=== PATIENT | female | born 1980 | race Caucasian/White ===

== ENCOUNTER → 2019-10-20 | Outpatient (CLI) | payer OTHER ==
[~2019-10-20] MED LIST: LEVA500T; TOLT2TA; VICO5TAB
--- NOTE | 2019-11-04 02:43 | ECWPNPC ---
PATIENT NAME: JIMENEZ MARIO : 1980 GENDER: FEMALE VISIT DATE: 10/20/2019 DISCHARGE DATE: 10/20/19 1440 VISIT LOCKED DATE TIME: PHYSICIAN: CAROLINE HICKMAN RESOURCE: CAROLINE HICKMAN REASON FOR APPOINTMENT 1. LOW BACK/HIP HISTORY OF PRESENT ILLNESS NEW PATIENT CONSULT: 39-YEAR-OLD REFERRED BY [facility] FOR PERSISTENT LOW BACK PAIN AND RIGHT LEG PAIN AND PARESTHESIAS. REPORTS LONG HISTORY OF CHRONIC LOW BACK PAIN. REPORTS FALLING WHILE DEPLOYED IN THE IN DEPLOYMENT. STATES SHE FELL ON ICE AFTER RETURNING HOME IN [employer] AND INJURED HER RIGHT HIP. HAD RIGHT HIP LABRAL TEAR REPAIR IN 2013. REPORTS THAT THIS MADE IT WORSE. RATING PAIN LEVEL 5/10 VAS. HAS TRIALED MULTIPLE DIFFERENT PAIN MEDICATIONS WITHOUT IMPROVEMENT IN HER PAIN. MOST RECENTLY USED HYDROCODONE 7.5/325 UP TO 3 TABLETS PER DAY. FINDS THAT THIS IS SUFFICIENT TO DULL PAIN AND TO HELP HER FUNCTION. FEELS PAIN HAS GOTTEN WORSE OVER THE PAST 2 YEARS. HAS TRIED INJECTION THERAPY IN HER LOWER BACK IN THE PAST THAT WAS SOMEWHAT HELPFUL. DENIES BOWEL OR BLADDER INCONTINENCE. DENIES RECENT FEVER, ILLNESS OR WEIGHT LOSS. WHEN DID YOUR PAIN FIRST START? . BRIEFLY DESCRIBE HOW YOUR PAIN STARTED? . HOW DOES YOUR PAIN CHANGE WITH TIME? . DOES YOUR PAIN AWAKEN YOU FROM SLEEP? . HOW MANY HOURS OF SLEEP DO YOU NORMALLY GET? . ANY DIAGNOSTIC TESTING? . FACILITY WHERE TESTS WERE DONE? ____. PAIN TREATMENT TREATMENT YES CANCER HAVE YOU EVER HAD ANY TYPE OF CANCER?NO NO. PAIN SCREENING: PATIENT HAS A COMPLAINT OF ACUTE OR CHRONIC PAIN :YES FALL RISK SCREENING: SCREENING : NO FALLS IN THE PAST YEAR. GARCIA INVENTORY: QUESTIONNAIRE ASSESSEDTBD SCORE VALUE CALCULATED TBD CURRENT MEDICATIONS TAKING ATORVASTATIN CALCIUM 80 MG TABLET 1 TABLET ORALLY ONCE A DAY TAKING SUMATRIPTAN SUCCINATE 100 MG TABLET 1 TABLET AT LEAST 2 HOURS BETWEEN DOSES NEEDED ORALLY ONE TABLET DIRECTED FOR MIGRAINES AND REPEAT IN 2 HOURS MDD 2 TAKING VITAMIN D3 25 MCG (1000 UT) CAPSULE 1 CAPSULE ORALLY 2000 UNITS BY MOUTH BEFORE BREAKFAST TAKING CLONAZEPAM 0.5 MG TABLET TAKE UP TO 3 TABS BEFORE BEDTIME ORALLY ONCE A DAY TAKING GEMFIBROZIL 600 MG TABLET 1 TABLET 30 MINUTES BEFORE MORNING AND EVENING MEALS ORALLY DAILY TAKING HYDROXYZINE HCL 10 MG TABLET DIRECTED ORALLY THREE TIMES DAILY NEEDED HOLD IF DROWSY TAKING OXCARBAZEPINE 600 MG TABLET 1 TABLET ORALLY TWICE A DAY TAKING HYDROCODONE-ACETAMINOPHEN 7.5-325 MG TABLET 1 TABLET NEEDED ORALLY BID AND AT HS NEEDED MDD3 TAKING ADDERALL XR 20 MG CAPSULE EXTENDED RELEASE 24 HOUR 1 CAPSULE IN THE MORNING ORALLY ONCE A DAY TAKING LURASIDONE HCL 120 MG TABLET 1/2 TABLET ORALLY ONCE A DAY MEDICATION LIST REVIEWED AND RECONCILED WITH THE PATIENT PAST MEDICAL HISTORY ADHD BIPOLAR PTSD SEVERE CHRONIC LOWER BACK PAIN 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 SEVERE ANXIETY MIGRAINES DYSLIPIDEMIA ALLERGIES NIACIN: SEVERE RASH AND DYSPNEA - ALLERGY SURGICAL HISTORY TUBAL LIGATION APPENDECTOMY RIGHT ANKLE SURGERY RIGHT HIP LABIAL TEAR REPAIR STENT FOR KIDNEY STONES FAMILY HISTORY FATHER: ALIVE, DIAGNOSED WITH DIABETES MOTHER: ALIVE 1 BROTHER(S) , 1 SISTER(S) - HEALTHY. 1 SON(S) , 2 DAUGHTER(S) - HEALTHY. FATHER- THYROID DISEASE, SEVERE ARTHRITISMOTHER CERVICAL CANCER SISTER- HAS PSYCH HISTORY. SOCIAL HISTORY GENERAL: TOBACCO USE ARE YOU A:CURRENT SMOKER ARE YOU INTERESTED IN QUITTING?NOT READY TO QUIT COUNSELED THE PATIENT ON SMOKING EFFECTS, EDUCATION [id number]/14/2020 HOW MANY CIGARETTES A DAY DO YOU SMOKE?6-10 HOW SOON AFTER YOU WAKE UP DO YOU SMOKE YOUR FIRST CIGARETTE?6-30 MIN HOW OFTEN DO YOU SMOKE CIGARETTES?EVERY DAY PATIENT COUNSELED ON THE DANGERS OF TOBACCO USE AND URGED TO QUIT:10/16/2019 VAPORNO E-CIGARETTENO OTHERS AT HOME: SPOUSE, CHILDREN. HOUSING: OWNS HOME. EDUCATION LEVEL OF EDUCATION:COLLEGE DIET: REGULAR. LANGUAGE LANGUAGES SPOKEN:SAO [place]OMEAN DOMESTIC VIOLENCE STATUS: RECREATIONAL DRUG USE DRUG USE?NO PATIENT DENIES ABUSE OR MISSUSED OF ANY MEDICATION DENIES PATIENT DENIES USE OF ANY ILLEGAL SUBSTANCE INCLUDING MARIJUANA OR COCAINE DENIES EXERCISE: NO REGULAR EXERCISE. 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 CLINIC PFS, CLERGY, PUBLIC HEALTH REFERRALS PFS REFERRAL NEEDED?NO CLERGY REFERRAL NEEDED?NO PUBLIC HEALTH REFERRAL NEEDED?NO WAS THE PROVIDER NOTIFIED OF ANY PERTINENT INFO?YES HAS THE PATIENT BEEN EDUCATED REGARDING HIS/HER PLAN OF CARE?YES HAS THE PATIENT BEEN EDUCATED REGARDING PAIN, THE RISK FOR PAIN, THE IMPORTANCE OF EFFECTIVE PAIN MANAGEMENT, AND THE PAIN ASSESSMENT PROCESS?YES PFS REFERRAL NEEDED?NO CLERGY REFERRAL NEEDED?NO PUBLIC HEALTH REFERRAL NEEDED?NO WAS THE PROVIDER NOTIFIED OF ANY PERTINENT INFO?NO LATEX QUESTIONNAIRE LATEX ALLERGY : HAVE YOU EVER DEVELOPED ANY TYPE OF REACTION AFTER HANDLING LATEX PRODUCTS SUCH RUBBER GLOVES, CONDOMS, DIAPHRAGMS, BALLOONS, SOCKS, OR UNDERWEAR?NO LATEX ALLERGY : HAVE YOU EVER DEVELOPED ANY TYPE OF REACTION DURING OR AFTER DENTAL APPOINTMENT, VAGINAL/RECTAL EXAMINATION, SURGICAL PROCEDURE, OR ANY OTHER EXPOSURE?NO LATEX RISK : HAVE YOU EVER HAD ANY DIFFICULTY BREATHING OR HIVES AFTER EATING OR HANDLING ANY FRUITS, OR VEGETABLES; SUCH KIWI, BANANAS, STONE FRUITS, OR CHESTNUTSNO LATEX RISK : DO YOU HAVE A PREVIOUS PERSONAL HISTORY OF MORE THAN NINE SURGERIES, SPINA BIFIDA, OR REPEATED CATHERIZATIONS? NO LATEX RISK : ARE YOU FREQUENTLY EXPOSED TO LATEX PRODUCTS IN YOUR OCCUPATION?NO DATE ASKED : 10/16/2019 CAFFEINE CAFFEINE USE?YES HOW OFTEN AND HOW MUCH? COFFEE, 4/DAY ADVANCE DIRECTIVE ADVANCE DIRECTIVE DISCUSSED WITH PATIENT:NO LUTHERAN LUTHERAN NO SHINTO BELIEFS THAT WOULD IMPACT HEALTH CARE. MARITAL STATUS: . 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 [facility] PRE VISIT PHONE CALL COMPLETED WITH PATIENT 10/16/2019 1430 NLJ. HOSPITALIZATION/MAJOR DIAGNOSTIC PROCEDURE KIDNEY STONES CHILDBIRTH AFTER CHILDBIRTH FROM [employer] REVIEW OF SYSTEMS REVIEWED BY: PROVIDER: CAROLINE GUADALUPE . CONSTITUTIONAL: ANY CHANGE IN YOUR MEDICAL CONDITION? NO . CHILLS NO . FEVER NO . INFECTION: DO YOU HAVE NEW INFECTIONS? SINUS INFECTION CURRENTLY ON AMOXICILLAN . DO YOU HAVE HISTORY OF MRSA? NO . MUSCULOSKELETAL: ANY NEW PATTERNS OF PAIN OR NUMBNESS? HAS HAD BACK PAIN SINCE 2013 . SYTEMIC LUPUS NO . GASTROENTEROLOGY: ANY NEW CHANGE IN BOWEL CONTROL? NO . BARRETTS ESOPHAGUS NO . CIRRHOSIS NO . HEPATITIS NO . LIVER FAILURE NO . ACID REFLUX NO . UNEXPLAINED WEIGHT LOSS NO . GENITOURINARY: ANY NEW CHANGE IN BLADDER CONTROL? NO . IS THERE A CHANCE YOU COULD BE ? NO . HEMATOLOGY/LYMPH: DO YOU TAKE ANY BLOOD THINNERS? (FOR EXAMPLE- COUMADIN, PLAVIX, AGGRENOX, PLATEL, PRADAXA, OR XARELTO) NO . WHEN WAS YOUR LAST DOSE? DATE: TIME: . LOW PLATELET COUNT NO . SICKLE CELL DISEASE NO . VON WILLIEBRANDS NO . FACTOR V LEIDEN NO . THALLASEMIA NO . ANEMIA NO . EASY BRUISING NO . NEUROLOGY: HAVE YOU FALLEN IN THE PAST 12 MONTHS? SLIPPED ON STAIRS IN THE LAST 6 ONTHS ON URGENT CARE . ANY NEW EXTREMITY NUMBNESS OR WEAKNESS? NO . HEAD INJURY NO . DEMENTIA NO . CEREBRAL PALSY NO . MULTIPLE SCLEROSIS NO . DIZZINESS NO . HEADACHE NO . STROKES NO . VERTIGO NO . CARDIOLOGY: DO YOU HAVE A PACEMAKER OR DEFIBRILLATOR? NO . ANGINA NO . HEART ATTACK NO . HEART SURGERY NO . CONGESTIVE HEART FAILURE/FLUID OVERLOAD NO . CHEST PAIN NO . HIGH BLOOD PRESSURE NO . IRREGULAR HEART BEAT NO . RESPIRATORY: HAVE YOU BEEN SICK IN THE PAST WEEK? NO . FEVER NO . FLU LIKE SYMPTOMS? NO . CPAP NO . BYPAP NO . ASTHMA NO . EMPHYSEMA NO . CHRONIC LUNG DISEASES NO . SHORTNESS OF BREATH ON EXERTION NO . DO YOU USE ANY TYPE OF TOBACCO (SMOKE, SMOKELESS, CHEW)? NO . COUGH NO . SNORING NO . INTEGUMENTARY: DO YOU HAVE ANY RASHES OR OPEN SORES? NO . ALLERGIC/IMMUNO: ARE YOU ALLERGIC TO IV DYE? NO . ANY NEW ALLERGIES? NO . PSYCHIATRIC: DO YOU HAVE THOUGHTS OF HURTING YOURSELF OR SOMEONE ELSE? NO . ARE YOU ABUSED, NEGLECTED, OR IN AN UNSAFE ENVIRONMENT? [facility] . ENDOCRINOLOGY: ARE YOU DIABETIC? NO . THYROID DISORDER NO . OTHER: DO YOU NEED ANY PRESCRIPTIONS? NO . IF YES, PLEASE LIST: ____ . ANY NEW PROBLEMS WITH YOUR MEDICATIONS? NO . WHEN DID YOU LAST EAT? ____ . WHEN DID YOU LAST DRINK? ____ . WHAT DID YOU LAST DRINK? ____ . NAME OF PERSON DRIVING YOU HOME? ____ . DO YOU HAVE ANY OTHER QUESTIONS OR CONCERNS NO . VITAL SIGNS WT 142.6 LBS, HT 62 IN, BMI 26.08 INDEX, BP 124/66 MM HG, HR 79 /MIN, RR 18 /MIN, TEMP 99.8 F, OXYGEN SAT % 95%, NA INITIALS MS 1333. EXAMINATION GENERAL EXAMINATION: GENERAL AWAKE,ALERT ,PLEASANT . PSYCH AFFECT NORMAL . NECK: TRACHEA MIDLINE. NO CERVICAL OR SUPRACLAVICULAR LYMPHADENOPATHY NOTED. LUNGS: LUNG GARCES ARE CLEAR TO AUSCULTATION BILATERALLY. GOOD MOVEMENT OF AIR . HEART: S1, S2 IN A REGULAR RATE AND RHYTHM. NO SIGNIFICANT MURMURS, RUBS OR GALLOPS NOTED . MUSCULOSKELETAL: MUSCLE STRENGTH TESTING WEAKNESS NOTED OVER RIGHT LEG .. LUMBAR: PALPATION: NEGATIVE FOR PAIN OVER L/S SPINE. NEGATIVE FOR PAIN OVER L/S PARASPINALS. , TRIGGER POINTS:. CERVICAL: NEGATIVE FOR PAIN WITH PALPATION OF CERVICAL SPINE. NEGATIVE FOR PAIN WITH PALPATION OF CERVICAL PARASPINALS. NEGATIVE FOR PAIN WITH PALPATION OF TRAPEZIUS BILAT. SKIN: NO RASH OR SKIN LESIONS. NEUROLOGIC EXAM:REPORTS DULLNESS TO LIGHT TOUCH, RIGHT THIGH, AND PARESTHESIA TO LIGHT TOUCH RIGHT LOWER EXTREMITY. ASSESSMENTS LOW BACK PAIN AT MULTIPLE SITES - M54.5 (PRIMARY) TREATMENT LOW BACK PAIN AT MULTIPLE SITES [facility] SPINE, L.S. WITHOUT [id number] NOTES: CONTINUE MEDICATION MANAGEMENT WITH [facility]. PROCEDURE CODES FA211 ESTABILISHED PATIENT [facility] FACILITY CHARGE DISPOSITION & COMMUNICATION FOLLOW UP 6 WEEKS (REASON: REVIEW MRI LS-SPINE) ELECTRONICALLY SIGNED BY ANAYELI MORAN ON 11/03/2019 AT 10:31 AM EST DISCLAIMER : THIS IS A VISIT SUMMARY EXTRACTED FROM THE [employer] CHART. IT IS NOT A COPY OF THE [employer] PROGRESS NOTE. CARL
== END ==
LOC: M PAIN 13:30
PROVIDERS: ATTEND Nurse Practitioner Family
DX: M54.5 Low back pain (principal); Z86.59 Personal history of other mental and behavioral disorders; G43.909 Migraine, unspecified, not intractable, without status migrainosus; F17.210 Nicotine dependence, cigarettes, uncomplicated; Z91.09 Other allergy status, other than to drugs and biological substances; Z79.899 Other long term (current) drug therapy

== ENCOUNTER → 2019-12-03 | Outpatient (CLI) | payer OTHER ==
--- NOTE | 2019-12-04 03:04 | ECWPNPC ---
PATIENT NAME: JIMENEZ MARIO : 1980 GENDER: FEMALE VISIT DATE: 12/03/2019 DISCHARGE DATE: 12/03/19 1122 VISIT LOCKED DATE TIME: PHYSICIAN: CAROLINE HICKMAN RESOURCE: CAROLINE HICKMAN REASON FOR APPOINTMENT 1. 6 WEEK FOLLOW UP MRI REVIEW HISTORY OF PRESENT ILLNESS HISTORY OF PRESENT ILLNESS: PHONE CALL TO PATIENT AND SHE IS AGREEABLE TO TELEPHONE VISIT TODAY. CONTINUES TO COMPLAIN OF LOW BACK PAIN AND RIGHT HIP AND LEG PAIN. THIS BEGAN SEVERAL YEARS AGO AFTER A FALL INJURY. REVIEWED MRI OF THE LS-SPINE I HAD ORDERED AT HER INITIAL CONSULT A FEW MONTHS AGO. THIS IS SHOWING FACET ARTHROPATHY. RATING PAIN LEVEL A 6/10 VAS. BRIEFLY DISCUSSED POTENTIAL TREATMENT PLAN, I.E. FACET BLOCK VERSUS RIGHT SIJ. WE WILL BRING HER BACK INTO THE OFFICE IN 4-6 WEEKS FOR PHYSICAL EXAM AND DISCUSSED TREATMENT OPTIONS. PAIN THE PATIENT DESCRIBES THE PAIN... FALL RISK SCREENING: SCREENING :NO FALLS REPORTED IN THE LAST YEAR CURRENT MEDICATIONS TAKING ATORVASTATIN CALCIUM 80 MG TABLET 1 TABLET ORALLY ONCE A DAY TAKING SUMATRIPTAN SUCCINATE 100 MG TABLET 1 TABLET AT LEAST 2 HOURS BETWEEN DOSES NEEDED ORALLY ONE TABLET DIRECTED FOR MIGRAINES AND REPEAT IN 2 HOURS MDD 2 TAKING VITAMIN D3 25 MCG (1000 UT) CAPSULE 1 CAPSULE ORALLY 2000 UNITS BY MOUTH BEFORE BREAKFAST TAKING CLONAZEPAM 0.5 MG TABLET TAKE UP TO 3 TABS BEFORE BEDTIME ORALLY ONCE A DAY TAKING GEMFIBROZIL 600 MG TABLET 1 TABLET 30 MINUTES BEFORE MORNING AND EVENING MEALS ORALLY DAILY TAKING HYDROXYZINE HCL 10 MG TABLET DIRECTED ORALLY THREE TIMES DAILY NEEDED HOLD IF DROWSY TAKING OXCARBAZEPINE 600 MG TABLET 1 TABLET ORALLY TWICE A DAY TAKING HYDROCODONE-ACETAMINOPHEN 7.5-325 MG TABLET 1 TABLET NEEDED ORALLY BID AND AT HS NEEDED MDD3 TAKING ADDERALL XR 20 MG CAPSULE EXTENDED RELEASE 24 HOUR 1 CAPSULE IN THE MORNING ORALLY ONCE A DAY TAKING LURASIDONE HCL 120 MG TABLET 1/2 TABLET ORALLY ONCE A DAY TAKING WELLBUTRIN XL 150 MG TABLET EXTENDED RELEASE 24 HOUR 1 TABLET ORALLY BID TAKING NICOTINE STEP 1 21 MG/24HR PATCH 24 HOUR 1 PATCH TO SKIN TRANSDERMAL ONCE A DAY MEDICATION LIST REVIEWED AND RECONCILED WITH THE PATIENT PAST MEDICAL HISTORY ADHD BIPOLAR PTSD SEVERE CHRONIC LOWER BACK PAIN 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 SEVERE ANXIETY MIGRAINES DYSLIPIDEMIA ALLERGIES NIACIN: SEVERE RASH AND DYSPNEA - ALLERGY SURGICAL HISTORY TUBAL LIGATION APPENDECTOMY RIGHT ANKLE SURGERY RIGHT HIP LABIAL TEAR REPAIR STENT FOR KIDNEY STONES FAMILY HISTORY FATHER: ALIVE, DIAGNOSED WITH DIABETES MOTHER: ALIVE 1 BROTHER(S) , 1 SISTER(S) - HEALTHY. 1 SON(S) , 2 DAUGHTER(S) - HEALTHY. FATHER- THYROID DISEASE, SEVERE ARTHRITISMOTHER CERVICAL CANCER SISTER- HAS PSYCH HISTORY. SOCIAL HISTORY GENERAL: TOBACCO USE ARE YOU A:CURRENT SMOKER ARE YOU INTERESTED IN QUITTING?READY TO QUIT PATIENT TAKING WELLBUTRIN AND USING NICOTINE PATCHES CURRENTLY. COUNSELED THE PATIENT ON TOBACCO USE, CESSATION [id number]/02/2020 HOW MANY CIGARETTES A DAY DO YOU SMOKE?6-10 HOW SOON AFTER YOU WAKE UP DO YOU SMOKE YOUR FIRST CIGARETTE?6-30 MIN HOW OFTEN DO YOU SMOKE CIGARETTES?EVERY DAY PATIENT COUNSELED ON THE DANGERS OF TOBACCO USE AND URGED TO QUIT:12/03/2019 VAPORNO E-CIGARETTENO OTHERS AT HOME: SPOUSE, CHILDREN. HOUSING: OWNS HOME. EDUCATION LEVEL OF EDUCATION:COLLEGE DIET: REGULAR. LANGUAGE LANGUAGES SPOKEN:BURMESE DOMESTIC VIOLENCE STATUS: NEW PATIENT PAIN DIARY TODAY'S VISITNOTES 12/03/2019 PATIENT DESCRIBES PAIN :ACHING, BURNING, HAVE IT ALL THE TIME, STABBING, SHOOTING FROM 0-10, WHAT LEVEL IS YOUR PAIN TODAY?6 RECREATIONAL DRUG USE DRUG USE?NO PATIENT DENIES ABUSE OR MISSUSED OF ANY MEDICATION DENIES PATIENT DENIES USE OF ANY ILLEGAL SUBSTANCE INCLUDING MARIJUANA OR COCAINE DENIES EXERCISE: NO REGULAR EXERCISE. 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 CLINIC PFS, CLERGY, PUBLIC HEALTH REFERRALS PFS REFERRAL NEEDED?NO CLERGY REFERRAL NEEDED?NO PUBLIC HEALTH REFERRAL NEEDED?NO WAS THE PROVIDER NOTIFIED OF ANY PERTINENT INFO?YES HAS THE PATIENT BEEN EDUCATED REGARDING HIS/HER PLAN OF CARE?YES HAS THE PATIENT BEEN EDUCATED REGARDING PAIN, THE RISK FOR PAIN, THE IMPORTANCE OF EFFECTIVE PAIN MANAGEMENT, AND THE PAIN ASSESSMENT PROCESS?YES LATEX QUESTIONNAIRE LATEX ALLERGY : HAVE YOU EVER DEVELOPED ANY TYPE OF REACTION AFTER HANDLING LATEX PRODUCTS SUCH RUBBER GLOVES, CONDOMS, DIAPHRAGMS, BALLOONS, SOCKS, OR UNDERWEAR?NO LATEX ALLERGY : HAVE YOU EVER DEVELOPED ANY TYPE OF REACTION DURING OR AFTER DENTAL APPOINTMENT, VAGINAL/RECTAL EXAMINATION, SURGICAL PROCEDURE, OR ANY OTHER EXPOSURE?NO LATEX RISK : HAVE YOU EVER HAD ANY DIFFICULTY BREATHING OR HIVES AFTER EATING OR HANDLING ANY FRUITS, OR VEGETABLES; SUCH KIWI, BANANAS, STONE FRUITS, OR CHESTNUTSNO LATEX RISK : DO YOU HAVE A PREVIOUS PERSONAL HISTORY OF MORE THAN NINE SURGERIES, SPINA BIFIDA, OR REPEATED CATHERIZATIONS? NO LATEX RISK : ARE YOU FREQUENTLY EXPOSED TO LATEX PRODUCTS IN YOUR OCCUPATION?NO DATE ASKED : 10/16/2019 CAFFEINE CAFFEINE USE?YES HOW OFTEN AND HOW MUCH? COFFEE, 4/DAY ADVANCE DIRECTIVE ADVANCE DIRECTIVE DISCUSSED WITH PATIENT:YES PATIENT HAS NO ADVANCED DIRECTIVES AND DECLINES INFORMATION ON HCP AT THIS TIME. MORAVIAN MORAVIAN NO SABIANISM BELIEFS THAT WOULD IMPACT HEALTH CARE. MARITAL STATUS: . 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 HOSPITALIZATION/MAJOR DIAGNOSTIC PROCEDURE KIDNEY STONES CHILDBIRTH AFTER [place]ILDBIRTH FROM [place] REVIEW OF SYSTEMS REVIEWED BY: PROVIDER: CAROLINE GUADALUPE . CONSTITUTIONAL: ANY CHANGE IN YOUR MEDICAL CONDITION? NO . CHILLS NO . FEVER NO . INFECTION: DO YOU HAVE NEW INFECTIONS? NO . DO YOU HAVE HISTORY OF MRSA? NO . MUSCULOSKELETAL: ANY NEW PATTERNS OF PAIN OR NUMBNESS? NO . GASTROENTEROLOGY: ANY NEW CHANGE IN BOWEL CONTROL? NO . GENITOURINARY: ANY NEW CHANGE IN BLADDER CONTROL? NO . IS THERE A CHANCE YOU COULD BE ? NO . HEMATOLOGY/LYMPH: DO YOU TAKE ANY BLOOD THINNERS? (FOR EXAMPLE- COUMADIN, PLAVIX, AGGRENOX, PLATEL, PRADAXA, OR XARELTO) NO . WHEN WAS YOUR LAST DOSE? DATE: TIME: . NEUROLOGY: HAVE YOU FALLEN IN THE PAST 12 MONTHS? YES, STATES PRIOR TO LAST VISIT, DISCUSSED PREVIOUSLY . ANY NEW EXTREMITY NUMBNESS OR WEAKNESS? NO . CARDIOLOGY: DO YOU HAVE A PACEMAKER OR DEFIBRILLATOR? NO . RESPIRATORY: HAVE YOU BEEN SICK IN THE PAST WEEK? NO . FEVER NO . FLU LIKE SYMPTOMS? NO . COUGH NO . INTEGUMENTARY: DO YOU HAVE ANY RASHES OR OPEN SORES? NO . ALLERGIC/IMMUNO: ARE YOU ALLERGIC TO IV DYE? NO . ANY NEW ALLERGIES? NO . PSYCHIATRIC: DO YOU HAVE THOUGHTS OF HURTING YOURSELF OR SOMEONE ELSE? NO . ARE YOU ABUSED, NEGLECTED, OR IN AN UNSAFE ENVIRONMENT? NO . ENDOCRINOLOGY: ARE YOU DIABETIC? NO . OTHER: DO YOU NEED ANY PRESCRIPTIONS? NO . IF YES, PLEASE LIST: ____ . ANY NEW PROBLEMS WITH YOUR MEDICATIONS? NO . WHEN DID YOU LAST EAT? ____ . WHEN DID YOU LAST DRINK? ____ . WHAT DID YOU LAST DRINK? ____ . NAME OF PERSON DRIVING YOU HOME? ____ . DO YOU HAVE ANY OTHER QUESTIONS OR CONCERNS YES, WOULD LIKE TO DISCUSS RIGHT HIP - [facility] . ASSESSMENTS LOW BACK PAIN AT MULTIPLE SITES - M54.5 (PRIMARY) TREATMENT LOW BACK PAIN AT MULTIPLE SITES NOTES: REVIEWED MRI OF THE LS SPINE AND DISCUSSED TREATMENT OPTIONS. OVERALL TIME FOR VISIT VIA PHONE CALL WAS APPROXIMATELY 11 MINUTES. DISPOSITION & COMMUNICATION FOLLOW UP 4-6 WEEKS. PREPROCEDURE (REASON: LBP/RIGHT LEG PAIN/RIGHT HIP) ELECTRONICALLY SIGNED BY ANAYELI MORAN ON 12/03/2019 AT 11:30 AM EDT DISCLAIMER : THIS IS A VISIT SUMMARY EXTRACTED FROM THE [employer] CHART. IT IS NOT A COPY OF THE [employer] PROGRESS NOTE. CARL
== END ==
LOC: M PAIN 09:15
PROVIDERS: ATTEND Nurse Practitioner Family
DX: M54.5 Low back pain (principal); F17.210 Nicotine dependence, cigarettes, uncomplicated; Z79.891 Long term (current) use of opiate analgesic; Z79.899 Other long term (current) drug therapy; Z88.8 Allergy status to other drugs, medicaments and biological substances

== ENCOUNTER → 2020-01-05 | Outpatient (CLI) | payer OTHER ==
--- NOTE | 2020-01-07 01:44 | ECWPNPC ---
PATIENT NAME: JIMENEZ MARIO : 1980 GENDER: FEMALE VISIT DATE: 01/05/2020 DISCHARGE DATE: 01/05/20901 VISIT LOCKED DATE TIME: PHYSICIAN: CAROLINE HICKMAN RESOURCE: CAROLINE HICKMAN REASON FOR APPOINTMENT 1. LBP/RIGHT LEG PAIN/RIGHT HIP - PAT COMPLETED HISTORY OF PRESENT ILLNESS HISTORY OF PRESENT ILLNESS: PATIENT IS AGREEABLE TO TELEMED VISIT VIA ZOOM DUE TO COVID 19 PRECAUTIONS. CONTINUES WITH SIGNIFICANT LOW BACK PAIN THAT RADIATES UP TO LOWER THORACIC AREA. PAIN IS AGGRAVATED BY RANGE OF JOINT MOTION OF THE SPINE. STATES RIGHT HIP HAS BEEN VERY PAINFUL OVER THE PAST 2 WEEKS, ESPECIALLY WHEN STEPPING ON HER RIGHT LEG. REVIEWED MRI. DISCUSSED TREATMENT OPTIONS. RATING PAIN LEVEL IN HER LOWER BACK 6/10 VAS, RIGHT GREATER THAN LEFT. DISCUSSED TREATMENT OPTIONS.REPORTS RIGHT HIP PAIN 10/10VAS. PAIN THE PATIENT DESCRIBES THE PAIN... FALL RISK SCREENING: SCREENING :NO FALLS REPORTED IN THE LAST YEAR CURRENT MEDICATIONS TAKING ATORVASTATIN CALCIUM 80 MG TABLET 1 TABLET ORALLY ONCE A DAY TAKING SUMATRIPTAN SUCCINATE 100 MG TABLET 1 TABLET AT LEAST 2 HOURS BETWEEN DOSES NEEDED ORALLY ONE TABLET DIRECTED FOR MIGRAINES AND REPEAT IN 2 HOURS MDD 2 TAKING VITAMIN D3 25 MCG (1000 UT) CAPSULE 1 CAPSULE ORALLY 2000 UNITS BY MOUTH BEFORE BREAKFAST TAKING CLONAZEPAM 0.5 MG TABLET TAKE UP TO 3 TABS BEFORE BEDTIME ORALLY ONCE A DAY TAKING GEMFIBROZIL 600 MG TABLET 1 TABLET 30 MINUTES BEFORE MORNING AND EVENING MEALS ORALLY DAILY TAKING HYDROXYZINE HCL 10 MG TABLET DIRECTED ORALLY THREE TIMES DAILY NEEDED HOLD IF DROWSY TAKING OXCARBAZEPINE 600 MG TABLET 1 TABLET ORALLY TWICE A DAY TAKING HYDROCODONE-ACETAMINOPHEN 7.5-325 MG TABLET 1 TABLET NEEDED ORALLY BID AND AT HS NEEDED MDD3 TAKING ADDERALL XR 20 MG CAPSULE EXTENDED RELEASE 24 HOUR 1 CAPSULE IN THE MORNING ORALLY ONCE A DAY TAKING LURASIDONE HCL 120 MG TABLET 1/2 TABLET ORALLY ONCE A DAY TAKING WELLBUTRIN XL 150 MG TABLET EXTENDED RELEASE 24 HOUR 1 TABLET ORALLY BID TAKING NICOTINE STEP 1 21 MG/24HR PATCH 24 HOUR 1 PATCH TO SKIN TRANSDERMAL ONCE A DAY MEDICATION LIST REVIEWED AND RECONCILED WITH THE PATIENT PAST MEDICAL HISTORY ADHD BIPOLAR PTSD SEVERE CHRONIC LOWER BACK PAIN 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 SEVERE ANXIETY MIGRAINES DYSLIPIDEMIA ARTHRITIS ALLERGIES NIACIN: SEVERE RASH AND DYSPNEA - ALLERGY SURGICAL HISTORY TUBAL LIGATION APPENDECTOMY RIGHT ANKLE SURGERY RIGHT HIP LABIAL TEAR REPAIR STENT FOR KIDNEY STONES FAMILY HISTORY FATHER: ALIVE, DIAGNOSED WITH DIABETES MOTHER: ALIVE 1 BROTHER(S) , 1 SISTER(S) - HEALTHY. 1 SON(S) , 2 DAUGHTER(S) - HEALTHY. FATHER- THYROID DISEASE, SEVERE ARTHRITISMOTHER CERVICAL CANCER SISTER- HAS PSYCH HISTORY. SOCIAL HISTORY GENERAL: TOBACCO USE ARE YOU A:CURRENT SMOKER ARE YOU INTERESTED IN QUITTING?READY TO QUIT PATIENT TAKING WELLBUTRIN AND USING NICOTINE PATCHES CURRENTLY. COUNSELED THE PATIENT ON TOBACCO USE, CESSATION [id number]/04/2020 HOW MANY CIGARETTES A DAY DO YOU SMOKE?5 OR LESS HOW SOON AFTER YOU WAKE UP DO YOU SMOKE YOUR FIRST CIGARETTE?6-30 MIN HOW OFTEN DO YOU SMOKE CIGARETTES?EVERY DAY PATIENT COUNSELED ON THE DANGERS OF TOBACCO USE AND URGED TO QUIT:01/04/2020 VAPORNO E-CIGARETTENO LATEX QUESTIONNAIRE LATEX ALLERGY : HAVE YOU EVER DEVELOPED ANY TYPE OF REACTION AFTER HANDLING LATEX PRODUCTS SUCH RUBBER GLOVES, CONDOMS, DIAPHRAGMS, BALLOONS, SOCKS, OR UNDERWEAR?NO LATEX ALLERGY : HAVE YOU EVER DEVELOPED ANY TYPE OF REACTION DURING OR AFTER DENTAL APPOINTMENT, VAGINAL/RECTAL EXAMINATION, SURGICAL PROCEDURE, OR ANY OTHER EXPOSURE?NO LATEX RISK : HAVE YOU EVER HAD ANY DIFFICULTY BREATHING OR HIVES AFTER EATING OR HANDLING ANY FRUITS, OR VEGETABLES; SUCH KIWI, BANANAS, STONE FRUITS, OR CHESTNUTSNO LATEX RISK : DO YOU HAVE A PREVIOUS PERSONAL HISTORY OF MORE THAN NINE SURGERIES, SPINA BIFIDA, OR REPEATED CATHERIZATIONS? NO LATEX RISK : ARE YOU FREQUENTLY EXPOSED TO LATEX PRODUCTS IN YOUR OCCUPATION?NO DATE ASKED : 01/04/2020 ALCOHOL SCREENING DID YOU HAVE A DRINK CONTAINING ALCOHOL IN THE PAST YEAR?YES HOW OFTEN DID YOU HAVE SIX OR MORE DRINKS ON ONE OCCASION IN THE PAST YEAR?NEVER (0 POINTS) HOW MANY DRINKS DID YOU HAVE ON A TYPICAL DAY WHEN YOU WERE DRINKING IN THE PAST YEAR?1 OR 2 (0 POINTS) HOW OFTEN DID YOU HAVE A DRINK CONTAINING ALCOHOL IN THE PAST YEAR?MONTHLY OR LESS (1 POINT) POINTS1 INTERPRETATIONNEGATIVE RECREATIONAL DRUG USE DRUG USE?NO PATIENT DENIES ABUSE OR MISSUSED OF ANY MEDICATION DENIES PATIENT DENIES USE OF ANY ILLEGAL SUBSTANCE INCLUDING MARIJUANA OR COCAINE DENIES CAFFEINE CAFFEINE USE?YES HOW OFTEN AND HOW MUCH? COFFEE, 4/DAY ZOROASTRIANISM ZOROASTRIANISM NO CONGREGATIONAL BELIEFS THAT WOULD IMPACT HEALTH CARE. 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 EXERCISE: NO REGULAR EXERCISE. MARITAL STATUS: . OTHERS AT HOME: SPOUSE, CHILDREN. NEW PATIENT PAIN DIARY TODAY'S VISITNOTES 01/04/2020 PATIENT DESCRIBES PAIN :ACHING, BURNING, HAVE IT ALL THE TIME, STABBING, SHOOTING HIP - STABBING, EXPLOSION PAIN FROM 0-10, WHAT LEVEL IS YOUR PAIN TODAY?6 BACK - 6, RIGHT HIP - 10, RIGHT LEG - 4 PRECIPITATING FACTORS WALKING (RIGHT LEG) ALLEVIATING FACTORS REST, MEDICATION HELPS SOME IMPACT ON FUNCTION YES PAIN CLINIC PFS, CLERGY, PUBLIC HEALTH REFERRALS PFS REFERRAL NEEDED?NO CLERGY REFERRAL NEEDED?NO PUBLIC HEALTH REFERRAL NEEDED?NO WAS THE PROVIDER NOTIFIED OF ANY PERTINENT INFO?YES HAS THE PATIENT BEEN EDUCATED REGARDING HIS/HER PLAN OF CARE?YES HAS THE PATIENT BEEN EDUCATED REGARDING PAIN, THE RISK FOR PAIN, THE IMPORTANCE OF EFFECTIVE PAIN MANAGEMENT, AND THE PAIN ASSESSMENT PROCESS?YES HOUSING: OWNS HOME. ADVANCE DIRECTIVE ADVANCE DIRECTIVE DISCUSSED WITH PATIENT:YES PATIENT HAS NO ADVANCED DIRECTIVES AND DECLINES INFORMATION ON HCP AT THIS TIME. HOSPITALIZATION/MAJOR DIAGNOSTIC PROCEDURE KIDNEY STONES CHILDBIRTH AFTER CHILDBIRTH FROM [place] REVIEW OF SYSTEMS REVIEWED BY: PROVIDER: CAROLINE GUADALUPE . CONSTITUTIONAL: ANY CHANGE IN YOUR MEDICAL CONDITION? NO . CHILLS NO . FEVER NO . INFECTION: DO YOU HAVE NEW INFECTIONS? NO . DO YOU HAVE HISTORY OF MRSA? NO . MUSCULOSKELETAL: ANY NEW PATTERNS OF PAIN OR NUMBNESS? YES, SOME PAIN RADIATING UP SPINE THAT SHE IS NOW NOTICING; STATES INCREASED PAIN TO RIGHT HIP WITH EVERY STEP - STARTED THIS PAST WEEK . GASTROENTEROLOGY: ANY NEW CHANGE IN BOWEL CONTROL? NO . GENITOURINARY: ANY NEW CHANGE IN BLADDER CONTROL? NO . IS THERE A CHANCE YOU COULD BE ? NO . HEMATOLOGY/LYMPH: DO YOU TAKE ANY BLOOD THINNERS? (FOR EXAMPLE- COUMADIN, PLAVIX, AGGRENOX, PLATEL, PRADAXA, OR XARELTO) NO . WHEN WAS YOUR LAST DOSE? DATE: TIME: . NEUROLOGY: HAVE YOU FALLEN IN THE PAST 12 MONTHS? YES, STATES FALL APPROXIMATELY 6 MONTHS AGO, DISCUSSED AT PREVIOUS VISIT . ANY NEW EXTREMITY NUMBNESS OR WEAKNESS? NO . CARDIOLOGY: DO YOU HAVE A PACEMAKER OR DEFIBRILLATOR? NO . RESPIRATORY: HAVE YOU BEEN SICK IN THE PAST WEEK? NO . FEVER NO . FLU LIKE SYMPTOMS? NO . COUGH NO . INTEGUMENTARY: DO YOU HAVE ANY RASHES OR OPEN SORES? NO . ALLERGIC/IMMUNO: ARE YOU ALLERGIC TO IV DYE? NO . ANY NEW ALLERGIES? NO . PSYCHIATRIC: DO YOU HAVE THOUGHTS OF HURTING YOURSELF OR SOMEONE ELSE? NO . ARE YOU ABUSED, NEGLECTED, OR IN AN UNSAFE ENVIRONMENT? NO . ENDOCRINOLOGY: ARE YOU DIABETIC? NO . OTHER: DO YOU NEED ANY PRESCRIPTIONS? NO . IF YES, PLEASE LIST: ____ . ANY NEW PROBLEMS WITH YOUR MEDICATIONS? NO . WHEN DID YOU LAST EAT? ____ . WHEN DID YOU LAST DRINK? ____ . WHAT DID YOU LAST DRINK? ____ . NAME OF PERSON DRIVING YOU HOME? ____ . DO YOU HAVE ANY OTHER QUESTIONS OR CONCERNS YES, WOULD LIKE TO DISCUSS GETTING A PROCEDURE AND WOULD LIKE TO DISCUSS INCREASED PAIN TO RIGHT HIP - STATES INCREASED PAIN WITH EACH STEP SHE TAKES WITH HER RIGHT LEG . EXAMINATION GENERAL EXAMINATION: GENERALNO ACUTE DISTRESS, APPEARS UNCOMFORTABLE. PSYCHAPPROPRIATE MOOD AND AFFECT . FACE:UNREMARKABLE. DIAGNOSTIC TESTS REVIEWEDMRI L/S SPINE 10/30/2019 . PATIENT DEMONSTRATES INCREASED PAIN WITH EXTENSION OF SPINE/FACET LOADING OVER LOWER LUMBAR FACETS. PAIN IN THIS REGION IS RELIEVED SOMEWHAT WITH FLEXION OF SPINE. PATIENT DEMONSTRATES TENDERNESS WITH PALPATION OVER THE LS AXIS AND LUMBAR FACETS. ASSESSMENTS SPINAL STENOSIS, LUMBAR REGION, WITHOUT NEUROGENIC CLAUDICATION - M48.061 (PRIMARY) TREATMENT SPINAL STENOSIS, LUMBAR REGION, WITHOUT NEUROGENIC CLAUDICATION NOTES: BILATERAL L4-5, L5-S1 LUMBAR THERAPEUTIC FACET BLOCK TOTAL TIME SPENT DURING TELEMED VISIT WAS APPROXIMATELY 12 MINUTES. OTHERS NOTES: NO VITALS OBTAINED DUE TO VIRTUAL VISIT. PRE-SCREENING COMPLETED 01/04/2020 1445 JS.,FACET JOINT INJECTION MATERIAL WAS PRINTED. PREVENTIVE MEDICINE PAIN CLINIC TEACHING: PROCEDURE TEACHING PRE-PROCEDURE INSTRUCTIONS REVIEWED WITH PT OVER PHONE. INSTRUCTIONS ALSO MAILED.. DISPOSITION & COMMUNICATION FOLLOW UP POST (REASON: BILATERAL L4-5, L5-S1 LUMBAR THERAPEUTIC FACET BLOCK) ELECTRONICALLY SIGNED BY ANAYELI MORAN ON 01/06/2020 AT 01:46 PM EDT DISCLAIMER : THIS IS A VISIT SUMMARY EXTRACTED FROM THE [employer] CHART. IT IS NOT A COPY OF THE [employer] PROGRESS NOTE. CARL
== END ==
LOC: M PAIN 09:30 → M TMPAIN 09:30
PROVIDERS: ATTEND Nurse Practitioner Family
DX: M48.061 Spinal stenosis, lumbar region without neurogenic claudication (principal); F17.210 Nicotine dependence, cigarettes, uncomplicated; Z79.891 Long term (current) use of opiate analgesic; Z79.899 Other long term (current) drug therapy; Z88.8 Allergy status to other drugs, medicaments and biological substances

== ENCOUNTER → 2020-01-15 | Outpatient (CLI) | payer OTHER | LOC: M LABSMTC 09:25 | PROVIDERS: ATTEND Anesthesiology | DX: Z11.59 Encounter for screening for other viral diseases (principal) | CPT/HCPCS: C9803; U0003 ==

== ENCOUNTER → 2020-02-08 | Outpatient (CLI) | payer OTHER ==
--- NOTE | 2020-02-12 13:16 | ECWPNPC ---
PATIENT NAME: JIMENEZ MARIO : 1980 GENDER: FEMALE VISIT DATE: 02/08/2020 DISCHARGE DATE: 02/08/20 1024 VISIT LOCKED DATE TIME: PHYSICIAN: CAROLINE HICKMAN RESOURCE: CAROLINE HICKMAN REASON FOR APPOINTMENT 1. POST LFBT-JENNA L4-L5, L5-S1 HISTORY OF PRESENT ILLNESS GENERAL: PATIENT IS AGREEABLE TO TELEMED VISIT VIA ZOOM. THIS IS A POST PROCEDURE FOLLOW-UP. HAD BILATERAL L4-5, L5-S1 LUMBAR FACET BLOCK, THERAPEUTIC ON 01/18/2020. REPORTS INITIAL AGGRAVATION IN PAIN AND THEN POSSIBLY A SMALL AMOUNT OF IMPROVEMENT THAT CONTINUES TODAY. STILL HAS BEEN BOTHERED BY CONSISTENT LOW BACK PAIN, RIGHT GREATER THAN LEFT. PAIN TRAVELS INTO THE RIGHT BUTTOCK AREA. DISCUSSED MEDICATION AND TREATMENT PLAN. -. FALL RISK SCREENING: SCREENING :ONE FALL WITHOUT INJURY IN THE PAST YEAR PAIN SCREENING: PATIENT HAS A COMPLAINT OF ACUTE OR CHRONIC PAIN :YES 02/08/20 INTENSITY OF PAIN (SCALE OF 1 TO 10):8 WHAT DOES YOUR PAIN FEEL LIKE:ACHING, CONTINOUS, STABBING, THROBBING, SHOOTING PAIN IS INCREASED BY: LIFTING THINGS TURNING, STANDING ON ONE FOOT PAIN IS DECREASED BY: REST NURSING NOTE: -. PAIN CENTER INTAKE QUESTIONS: DO YOU HAVE A HISTORY OF MRSA? :NO DO YOU TAKE A BLOOD THINNERS? :NO DO YOU HAVE ANY BLEEDING DISORDERS? :NO ANY NEW NUMBNESS OR WEAKNESS IN YOUR LEGS OR ARMS? :YES S/P NUMBNESS IN FEET ANY PACEMAKER,DEFIBRILLATOR, OR DORSAL COLUMN STIMULATOR? :NO DO YOU HAVE ANY RASHES OR OPEN SORES? :NO ARE YOU ALLERGIC TO IV DYE? :NO ARE YOU DIABETIC? :NO ANY NEW PROBLEMS WITH YOUR MEDICATIONS? :NO HAVE YOU RECEIVED A VACCINE IN THE PAST 30 DAYS? :NO DO YOU PLAN TO RECEIVE A VACCINE IN THE NEXT 21 DAYS? :NO DO YOU NEED ANY PRESCRIPTION? :NO DO YOU TAKE ANY IMMUNOSUPPRESSIVE MEDICATIONS? :NO CURRENT MEDICATIONS TAKING ATORVASTATIN CALCIUM 80 MG TABLET 1 TABLET ORALLY ONCE A DAY TAKING SUMATRIPTAN SUCCINATE 100 MG TABLET 1 TABLET AT LEAST 2 HOURS BETWEEN DOSES NEEDED ORALLY ONE TABLET DIRECTED FOR MIGRAINES AND REPEAT IN 2 HOURS MDD 2 TAKING VITAMIN D3 25 MCG (1000 UT) CAPSULE 1 CAPSULE ORALLY 2000 UNITS BY MOUTH DAILY TAKING CLONAZEPAM 0.5 MG TABLET TAKE UP TO 3 TABS BEFORE BEDTIME ORALLY ONCE A DAY TAKING GEMFIBROZIL 600 MG TABLET 1 TABLET 30 MINUTES BEFORE MORNING AND EVENING MEALS ORALLY DAILY TAKING HYDROXYZINE HCL 10 MG TABLET DIRECTED ORALLY THREE TIMES DAILY NEEDED HOLD IF DROWSY TAKING OXCARBAZEPINE 600 MG TABLET 1 TABLET ORALLY TWICE A DAY TAKING HYDROCODONE-ACETAMINOPHEN 7.5-325 MG TABLET 1 TABLET NEEDED ORALLY BID AND AT HS NEEDED MDD3 TAKING ADDERALL XR 20 MG CAPSULE EXTENDED RELEASE 24 HOUR 1 CAPSULE IN THE MORNING ORALLY ONCE A DAY TAKING LURASIDONE HCL 120 MG TABLET 1/2 TABLET ORALLY ONCE A DAY NOT-TAKING WELLBUTRIN XL 150 MG TABLET EXTENDED RELEASE 24 HOUR 1 TABLET ORALLY BID NOT-TAKING CARISOPRODOL 350 MG TABLET 1 TABLET NEEDED ORALLY FOR SPASMS AND PAIN EVERY 12 HOURS NEEDED MDD2 NOT-TAKING NICOTINE STEP 1 21 MG/24HR PATCH 24 HOUR 1 PATCH TO SKIN TRANSDERMAL ONCE A DAY MEDICATION LIST REVIEWED AND RECONCILED WITH THE PATIENT PAST MEDICAL HISTORY ADHD BIPOLAR PTSD SEVERE CHRONIC LOWER BACK PAIN 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 SEVERE ANXIETY MIGRAINES DYSLIPIDEMIA ARTHRITIS 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 ALLERGIES NIACIN: SEVERE RASH AND DYSPNEA - ALLERGY SURGICAL HISTORY TUBAL LIGATION APPENDECTOMY RIGHT ANKLE SURGERY RIGHT HIP LABIAL TEAR REPAIR STENT FOR KIDNEY STONES FAMILY HISTORY FATHER: ALIVE, DIAGNOSED WITH DIABETES MOTHER: ALIVE 1 BROTHER(S) , 1 SISTER(S) - HEALTHY. 1 SON(S) , 2 DAUGHTER(S) - HEALTHY. FATHER- THYROID DISEASE, SEVERE ARTHRITISMOTHER CERVICAL CANCER SISTER- HAS PSYCH HISTORY. SOCIAL HISTORY GENERAL: TOBACCO USE ARE YOU A:CURRENT SMOKER ARE YOU INTERESTED IN QUITTING?READY TO QUIT PATIENT TAKING WELLBUTRIN. STATES SHE TRIED THE NICOTENE PATCHES BUT THEY CAUSED HER TO BE SICK COUNSELED THE PATIENT ON TOBACCO USE, CESSATION DOMAPDHG48/08/2020 HOW MANY CIGARETTES A DAY DO YOU SMOKE?5 OR LESS HOW SOON AFTER YOU WAKE UP DO YOU SMOKE YOUR FIRST CIGARETTE?6-30 MIN HOW OFTEN DO YOU SMOKE CIGARETTES?EVERY DAY PATIENT COUNSELED ON THE DANGERS OF TOBACCO USE AND URGED TO QUIT:01/18/2020 VAPORNO E-CIGARETTENO LATEX QUESTIONNAIRE LATEX ALLERGY : HAVE YOU EVER DEVELOPED ANY TYPE OF REACTION AFTER HANDLING LATEX PRODUCTS SUCH RUBBER GLOVES, CONDOMS, DIAPHRAGMS, BALLOONS, SOCKS, OR UNDERWEAR?NO LATEX ALLERGY : HAVE YOU EVER DEVELOPED ANY TYPE OF REACTION DURING OR AFTER DENTAL APPOINTMENT, VAGINAL/RECTAL EXAMINATION, SURGICAL PROCEDURE, OR ANY OTHER EXPOSURE?NO DATE ASKED : 01/04/2020 LATEX RISK : HAVE YOU EVER HAD ANY DIFFICULTY BREATHING OR HIVES AFTER EATING OR HANDLING ANY FRUITS, OR VEGETABLES; SUCH KIWI, BANANAS, STONE FRUITS, OR CHESTNUTSNO LATEX RISK : DO YOU HAVE A PREVIOUS PERSONAL HISTORY OF MORE THAN NINE SURGERIES, SPINA BIFIDA, OR REPEATED CATHERIZATIONS? NO LATEX RISK : ARE YOU FREQUENTLY EXPOSED TO LATEX PRODUCTS IN YOUR OCCUPATION?NO ALCOHOL SCREENING DID YOU HAVE A DRINK CONTAINING ALCOHOL IN THE PAST YEAR?YES HOW OFTEN DID YOU HAVE SIX OR MORE DRINKS ON ONE OCCASION IN THE PAST YEAR?NEVER (0 POINTS) HOW MANY DRINKS DID YOU HAVE ON A TYPICAL DAY WHEN YOU WERE DRINKING IN THE PAST YEAR?1 OR 2 (0 POINTS) HOW OFTEN DID YOU HAVE A DRINK CONTAINING ALCOHOL IN THE PAST YEAR?MONTHLY OR LESS (1 POINT) POINTS1 INTERPRETATIONNEGATIVE RECREATIONAL DRUG USE DRUG USE?NO PATIENT DENIES ABUSE OR MISSUSED OF ANY MEDICATION DENIES PATIENT DENIES USE OF ANY ILLEGAL SUBSTANCE INCLUDING MARIJUANA OR COCAINE DENIES CAFFEINE CAFFEINE USE?YES HOW OFTEN AND HOW MUCH? COFFEE, 4/DAY ORIENTAL ORTHODOX ORIENTAL ORTHODOX NO RELIGION BELIEFS THAT WOULD IMPACT HEALTH CARE. 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 EXERCISE: NO REGULAR EXERCISE. MARITAL STATUS: . OTHERS AT HOME: SPOUSE, CHILDREN. NEW PATIENT PAIN DIARY TODAY'S VISITNOTES 01/18/2020 PATIENT DESCRIBES PAIN :ACHING, BURNING, HAVE IT ALL THE TIME, STABBING, SHOOTING FROM 0-10, WHAT LEVEL IS YOUR PAIN TODAY?8 7-8 PRECIPITATING FACTORS WALKING (RIGHT LEG), BACK-LIFTING,BENDING, TWISTING ALLEVIATING FACTORS REST, MEDICATION HELPS SOME IMPACT ON FUNCTION LIMITS HER ON WHAT SHE IS ABLE TO DO. PAIN CLINIC PFS, CLERGY, PUBLIC HEALTH REFERRALS PFS REFERRAL NEEDED?NO CLERGY REFERRAL NEEDED?NO PUBLIC HEALTH REFERRAL NEEDED?NO HAS THE PATIENT BEEN EDUCATED REGARDING HIS/HER PLAN OF CARE?YES HAS THE PATIENT BEEN EDUCATED REGARDING PAIN, THE RISK FOR PAIN, THE IMPORTANCE OF EFFECTIVE PAIN MANAGEMENT, AND THE PAIN ASSESSMENT PROCESS?YES HOUSING: OWNS HOME. ADVANCE DIRECTIVE ADVANCE DIRECTIVE DISCUSSED WITH PATIENT:YES PATIENT DOES NOT HAVE ANY ADVANCED DIRECTIVES AND DECLINES INFORMATION ON HCP AT THIS TIME. HOSPITALIZATION/MAJOR DIAGNOSTIC PROCEDURE KIDNEY STONES CHILDBIRTH AFTER CHILDBIRTH FROM [place] HIP SURGERY REVIEW OF SYSTEMS CONSTITUTIONAL: ANY RECENT FEVER OR ILLNESS NO . CHILLS NO . GASTROENTEROLOGY: BOWEL INCONTINENCE NO . ANY NEW CHANGE IN BOWEL CONTROL? NO . ABDOMINAL PAIN NO . CONSTIPATION NO . GENITOURINARY: ANY NEW CHANGE IN BLADDER CONTROL? NO . IS THERE A CHANCE YOU COULD BE ? NO . URINARY INCONTINENCE NO . CARDIOLOGY: CHEST PRESSURE NO . CHEST PAIN NO . RESPIRATORY: COUGH NO . SHORTNESS OF BREATH NO . EXAMINATION GENERAL EXAMINATION: GENERALNO ACUTE DISTRESS, WELL NOURISHED AND HYDRATED. PSYCHAPPROPRIATE MOOD AND AFFECT . FACE:UNREMARKABLE. ASSESSMENTS SPINAL STENOSIS, LUMBAR REGION, WITHOUT NEUROGENIC CLAUDICATION - M48.061 (PRIMARY) LOW BACK PAIN AT MULTIPLE SITES - M54.5 TREATMENT SPINAL STENOSIS, LUMBAR REGION, WITHOUT NEUROGENIC CLAUDICATION START GABAPENTIN CAPSULE, 100 MG, 1 CAPSULE, ORALLY, Q8H TID, 30 DAY(S), 90, REFILLS 2 NOTES: START GABAPENTIN 100 MG 1 AT NIGHTTIME FOR 3-5 DAYS, THEN INCREASE TO MORNING AND NIGHT AND EVENTUALLY TO 3 TIMES DAILY TOLERATED. RETURN TO CLINIC FOR PHYSICAL EXAM TO CONSIDER INJECTION THERAPY. TOTAL TIME SPENT DURING TELEMED VISIT WAS APPROXIMATELY 12 MINUTES. OTHERS CLINICAL NOTES: PRE SCREENING CALL DONE 02/08/20 EM. DISPOSITION & COMMUNICATION FOLLOW UP 4-6 WEEKS IN CLINIC PHYSICAL EXAM LOW BACK PAIN (REASON: LOW BACK PAIN, RIGHT GREATER THAN LEFT) ELECTRONICALLY SIGNED BY ANAYLEI MORAN ON 02/09/2020 AT 03:07 PM EDT DISCLAIMER : THIS IS A VISIT SUMMARY EXTRACTED FROM THE [employer] CHART. IT IS NOT A COPY OF THE [employer] PROGRESS NOTE. CARL
== END ==
LOC: M PAIN 10:45 → M TMPAIN 10:45
PROVIDERS: ATTEND Nurse Practitioner Family
DX: M48.061 Spinal stenosis, lumbar region without neurogenic claudication (principal); M54.5 Low back pain; Z86.59 Personal history of other mental and behavioral disorders; G43.909 Migraine, unspecified, not intractable, without status migrainosus; F17.210 Nicotine dependence, cigarettes, uncomplicated; Z91.09 Other allergy status, other than to drugs and biological substances; Z79.899 Other long term (current) drug therapy

== ENCOUNTER → 2020-03-21 | Outpatient (CLI) | payer OTHER ==
--- NOTE | 2020-03-22 07:01 | ECWPNPC ---
PATIENT NAME: JIMENEZ MARIO : 1980 GENDER: FEMALE VISIT DATE: 03/21/2020 DISCHARGE DATE: 03/21/20 1025 VISIT LOCKED DATE TIME: PHYSICIAN: CAROLINE HICKMAN RESOURCE: CAROLINE HICKMAN REASON FOR APPOINTMENT 1. LOW BACK PAIN, RIGHT GREATER THAN LEFT HISTORY OF PRESENT ILLNESS GENERAL: HERE FOR FOLLOW-UP OF CHRONIC LOW BACK PAIN. HAS BEEN EXPERIENCING SEVERE INCREASES IN HER LOW BACK PAIN THAT RADIATES INTO HER THIGHS, RIGHT GREATER THAN LEFT, OVER THE PAST 6 WEEKS. HAD BILATERAL THERAPEUTIC LUMBAR BLOCKS A FEW MONTHS AGO, WHICH PATIENT FEELS WERE VERY PAINFUL AND AGGRAVATED HER PAIN FOR A WEEK POST PROCEDURE. REVIEWED MRI OF THE LS-SPINE. PATIENT IS VERY HYPERSENSITIVE TO EVEN LIGHT TOUCH OVER HER BACK. HAS BEEN ON HYDROCODONE PRESCRIBED BY [facility] LOCALLY AND IS TAKING THIS 3 TIMES A DAY OVER THE PAST COUPLE OF YEARS. DISCUSSED POSSIBILITY THAT SHE COULD BE EXPERIENCING OPIOID-INDUCED HYPERALGESIA. I CAN'T EXPLAIN HER SEVERE PAIN WITH MRI OF LS SPINE RESULTS OR ON PHYSICAL EXAM. SHE WILL TALK TO DR. RAMOS AND BEGIN WEANING DOWN AND OFF OF THIS MEDICATION. DISCUSSED TRIAL OF LUMBAR EPIDURAL STEROID INJECTION WITH IV SEDATION DUE TO HER HYPERSENSITIVITY/HYPERALGESIA. -. FALL RISK SCREENING: SCREENING :ONE FALL WITHOUT INJURY IN THE PAST YEAR PAIN SCREENING: PATIENT HAS A COMPLAINT OF ACUTE OR CHRONIC PAIN :YES LOCATION OF PAIN:LEFT HIP INTENSITY OF PAIN (SCALE OF 1 TO 10):7 WHAT DOES YOUR PAIN FEEL LIKE:ACHING, CONTINOUS, STABBING, THROBBING NURSING NOTE: -. PAIN CENTER INTAKE QUESTIONS: DO YOU HAVE A HISTORY OF MRSA? :NO DO YOU TAKE A BLOOD THINNERS? :NO DO YOU HAVE ANY BLEEDING DISORDERS? :NO ANY NEW NUMBNESS OR WEAKNESS IN YOUR LEGS OR ARMS? :YES PT STATES THAT SHE IS EXPERIENCING NEW NUMBNESS IN LEFT LEG ANY PACEMAKER,DEFIBRILLATOR, OR DORSAL COLUMN STIMULATOR? :NO DO YOU HAVE ANY RASHES OR OPEN SORES? :NO ARE YOU ALLERGIC TO IV DYE? :NO ARE YOU DIABETIC? :NO ANY NEW PROBLEMS WITH YOUR MEDICATIONS? :NO HAVE YOU RECEIVED A VACCINE IN THE PAST 30 DAYS? :NO DO YOU PLAN TO RECEIVE A VACCINE IN THE NEXT 21 DAYS? :NO DO YOU NEED ANY PRESCRIPTION? :NO DO YOU TAKE ANY IMMUNOSUPPRESSIVE MEDICATIONS? :NO IS THERE A CHANCE YOU COULD BE ? :NO ARE YOU BREAST FEEDING? :NO CURRENT MEDICATIONS TAKING ATORVASTATIN CALCIUM 80 MG TABLET 1 TABLET ORALLY ONCE A DAY TAKING SUMATRIPTAN SUCCINATE 100 MG TABLET 1 TABLET AT LEAST 2 HOURS BETWEEN DOSES NEEDED ORALLY ONE TABLET DIRECTED FOR MIGRAINES AND REPEAT IN 2 HOURS MDD 2 TAKING VITAMIN D3 25 MCG (1000 UT) CAPSULE 1 CAPSULE ORALLY 2000 UNITS BY MOUTH DAILY TAKING CLONAZEPAM 0.5 MG TABLET TAKE UP TO 3 TABS BEFORE BEDTIME ORALLY ONCE A DAY TAKING GEMFIBROZIL 600 MG TABLET 1 TABLET 30 MINUTES BEFORE MORNING AND EVENING MEALS ORALLY DAILY TAKING HYDROXYZINE HCL 10 MG TABLET DIRECTED ORALLY THREE TIMES DAILY NEEDED HOLD IF DROWSY TAKING OXCARBAZEPINE 600 MG TABLET 1 TABLET ORALLY TWICE A DAY TAKING HYDROCODONE-ACETAMINOPHEN 7.5-325 MG TABLET 1 TABLET NEEDED ORALLY BID AND AT HS NEEDED MDD3 TAKING ADDERALL XR 20 MG CAPSULE EXTENDED RELEASE 24 HOUR 1 CAPSULE IN THE MORNING ORALLY ONCE A DAY TAKING LURASIDONE HCL 120 MG TABLET 1/2 TABLET ORALLY ONCE A DAY TAKING GABAPENTIN 300 MG TABLET 3 CAPSULE ORALLY Q8H TID 900MG TOTAL NOT-TAKING WELLBUTRIN XL 150 MG TABLET EXTENDED RELEASE 24 HOUR 1 TABLET ORALLY BID NOT-TAKING CARISOPRODOL 350 MG TABLET 1 TABLET NEEDED ORALLY FOR SPASMS AND PAIN EVERY 12 HOURS NEEDED MDD2 NOT-TAKING NICOTINE STEP 1 21 MG/24HR PATCH 24 HOUR 1 PATCH TO SKIN TRANSDERMAL ONCE A DAY MEDICATION LIST REVIEWED AND RECONCILED WITH THE PATIENT PAST MEDICAL HISTORY ADHD BIPOLAR PTSD SEVERE CHRONIC LOWER BACK PAIN 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 SEVERE ANXIETY MIGRAINES DYSLIPIDEMIA ARTHRITIS 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 ALLERGIES NIACIN: SEVERE RASH AND DYSPNEA - ALLERGY SURGICAL HISTORY TUBAL LIGATION APPENDECTOMY RIGHT ANKLE SURGERY RIGHT HIP LABIAL TEAR REPAIR STENT FOR KIDNEY STONES FAMILY HISTORY FATHER: ALIVE, DIAGNOSED WITH DIABETES MOTHER: ALIVE 1 BROTHER(S) , 1 SISTER(S) - HEALTHY. 1 SON(S) , 2 DAUGHTER(S) - HEALTHY. FATHER- THYROID DISEASE, SEVERE ARTHRITISMOTHER CERVICAL CANCER SISTER- HAS PSYCH HISTORY. SOCIAL HISTORY GENERAL: TOBACCO USE ARE YOU A:CURRENT SMOKER ARE YOU INTERESTED IN QUITTING?READY TO QUIT PATIENT TAKING WELLBUTRIN. STATES SHE TRIED THE NICOTENE PATCHES BUT THEY CAUSED HER TO BE SICK COUNSELED THE PATIENT ON TOBACCO USE, CESSATION [id number]/08/2020 HOW MANY CIGARETTES A DAY DO YOU SMOKE?5 OR LESS HOW SOON AFTER YOU WAKE UP DO YOU SMOKE YOUR FIRST CIGARETTE?6-30 MIN HOW OFTEN DO YOU SMOKE CIGARETTES?EVERY DAY PATIENT COUNSELED ON THE DANGERS OF TOBACCO USE AND URGED TO QUIT:03/21/2020 VAPORNO E-CIGARETTENO LATEX QUESTIONNAIRE LATEX ALLERGY : HAVE YOU EVER DEVELOPED ANY TYPE OF REACTION AFTER HANDLING LATEX PRODUCTS SUCH RUBBER GLOVES, CONDOMS, DIAPHRAGMS, BALLOONS, SOCKS, OR UNDERWEAR?NO LATEX ALLERGY : HAVE YOU EVER DEVELOPED ANY TYPE OF REACTION DURING OR AFTER DENTAL APPOINTMENT, VAGINAL/RECTAL EXAMINATION, SURGICAL PROCEDURE, OR ANY OTHER EXPOSURE?NO LATEX RISK : HAVE YOU EVER HAD ANY DIFFICULTY BREATHING OR HIVES AFTER EATING OR HANDLING ANY FRUITS, OR VEGETABLES; SUCH KIWI, BANANAS, STONE FRUITS, OR CHESTNUTSNO LATEX RISK : DO YOU HAVE A PREVIOUS PERSONAL HISTORY OF MORE THAN NINE SURGERIES, SPINA BIFIDA, OR REPEATED CATHERIZATIONS? NO LATEX RISK : ARE YOU FREQUENTLY EXPOSED TO LATEX PRODUCTS IN YOUR OCCUPATION?NO DATE ASKED : 03/21/2020 ALCOHOL SCREENING DID YOU HAVE A DRINK CONTAINING ALCOHOL IN THE PAST YEAR?YES HOW OFTEN DID YOU HAVE SIX OR MORE DRINKS ON ONE OCCASION IN THE PAST YEAR?NEVER (0 POINTS) HOW MANY DRINKS DID YOU HAVE ON A TYPICAL DAY WHEN YOU WERE DRINKING IN THE PAST YEAR?1 OR 2 (0 POINTS) HOW OFTEN DID YOU HAVE A DRINK CONTAINING ALCOHOL IN THE PAST YEAR?MONTHLY OR LESS (1 POINT) POINTS1 INTERPRETATIONNEGATIVE RECREATIONAL DRUG USE DRUG USE?NO PATIENT DENIES ABUSE OR MISSUSED OF ANY MEDICATION DENIES PATIENT DENIES USE OF ANY ILLEGAL SUBSTANCE INCLUDING MARIJUANA OR COCAINE DENIES CAFFEINE CAFFEINE USE?YES HOW OFTEN AND HOW MUCH? COFFEE, 4/DAY JEWISH JEWISH NO HOAHAOISM BELIEFS THAT WOULD IMPACT HEALTH CARE. 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 EXERCISE: NO REGULAR EXERCISE. MARITAL STATUS: . OTHERS AT HOME: SPOUSE, CHILDREN. PAIN CLINIC PFS, CLERGY, PUBLIC HEALTH REFERRALS PFS REFERRAL NEEDED?NO CLERGY REFERRAL NEEDED?NO PUBLIC HEALTH REFERRAL NEEDED?NO WAS THE PROVIDER NOTIFIED OF ANY PERTINENT INFO?YES HAS THE PATIENT BEEN EDUCATED REGARDING HIS/HER PLAN OF CARE?YES HAS THE PATIENT BEEN EDUCATED REGARDING PAIN, THE RISK FOR PAIN, THE IMPORTANCE OF EFFECTIVE PAIN MANAGEMENT, AND THE PAIN ASSESSMENT PROCESS?YES HOUSING: OWNS HOME. ADVANCE DIRECTIVE ADVANCE DIRECTIVE DISCUSSED WITH PATIENT:YES PATIENT DOES NOT HAVE ANY ADVANCED DIRECTIVES AND DECLINES INFORMATION ON HCP AT THIS TIME. HOSPITALIZATION/MAJOR DIAGNOSTIC PROCEDURE KIDNEY STONES CHILDBIRTH AFTER CHILDBIRTH FROM [place] HIP SURGERY REVIEW OF SYSTEMS CONSTITUTIONAL: ANY RECENT FEVER NO . CHILLS NO . WEIGHT CHANGE OF UNKNOWN REASONS NO . GASTROENTEROLOGY: NEW UNEXPLAINABLE CHANGES IN BOWEL CONTROL NO . CONSTIPATION NO . GENITOURINARY: ANY NEW CHANGE IN BLADDER CONTROL? NO . NEUROLOGY: NEW ONSET DIZZINESS OR NEUROLOGICAL CHANGES NOT MENTIONED NO . NEW NUMBNESS OR PAIN PATTERNS NOT MENTIONED AND PERTINENT TO TODAY'S VISIT NO . CARDIOLOGY: NEW CHEST PRESSURE NO . NEW CHEST PAIN NO . RESPIRATORY: UNEXPLAINABLE COUGH NO . NEW SHORTNESS OF BREATH NO . VITAL SIGNS WT 143.0 LBS, HT 62 IN, BMI 26.15 INDEX, BP 103/52 MM HG, HR 78 /MIN, RR 18 /MIN, TEMP 97.8 F, OXYGEN SAT % 97%, SAFE IN ENV? (Y/N) Y, NA INITIALS AW 0953, REVIEWED BY: JOHNATHAN. EXAMINATION GENERAL EXAMINATION: GENERALAPPEARS UNCOMFORTABLE . PSYCHFLAT AFFECT . COMPLAINING OF PAIN . LUNGS:CLEAR TO AUSCULTATION BILATERALLY, NO WHEEZES, RHONCHI, RALES. HEART:NO MURMURS, REGULAR RATE AND RHYTHM. LUMBAR:HYPERSENSITIVE TO EXTREME LIGHT TOUCH OVER ENTIRE LOWER BACK. . DIAGNOSTIC TESTS REVIEWEDMRI L/S SPINE OCTOBER 2019 . ASSESSMENTS SPINAL STENOSIS, LUMBAR REGION, WITHOUT NEUROGENIC CLAUDICATION - M48.061 (PRIMARY) LOW BACK PAIN AT MULTIPLE SITES - M54.5 TREATMENT SPINAL STENOSIS, LUMBAR REGION, WITHOUT NEUROGENIC CLAUDICATION NOTES: L4-5 LESI WITH IV SEDATION. PREVENTIVE MEDICINE PAIN CLINIC TEACHING: THE PATIENT HAS BEEN EDUCATED REGARDING PAIN, THE RISK FOR PAIN, THE IMPORTANCE OF EFFECTIVE PAIN MANAGEMENT, AND THE PAIN ASSESSMENT PROCESS. : REVIEWED WRITTEN AND VERBAL PLAN OF CARE AND PRE-PROCEDURE INSTRUCTIONS WITH PATIENT, PT ACKNOWLEDGED UNDERSTANDING, JOHNATHAN PROCEDURE CODES FA211 ESTABILISHED PATIENT [facility] CHARGE DISPOSITION & COMMUNICATION FOLLOW UP PRESEDATION DR. ASHLEY, POST PROCEDURE, ORTHOTICS TECHNICIAN (REASON: L4-5 LESI WITH IV SEDATION) ELECTRONICALLY SIGNED BY ANAYELI MORAN ON 03/21/2020 AT 01:33 PM EDT DISCLAIMER : THIS IS A VISIT SUMMARY EXTRACTED FROM THE [employer] CHART. IT IS NOT A COPY OF THE [employer] PROGRESS NOTE. CARL
== END ==
LOC: M PAIN 09:45
PROVIDERS: ATTEND Nurse Practitioner Family
DX: M48.061 Spinal stenosis, lumbar region without neurogenic claudication (principal); M54.5 Low back pain

== ENCOUNTER → 2020-04-08 | Outpatient (POV) | payer OTHER | LOC: M PAIN 11:00 | PROVIDERS: ATTEND Anesthesiology | DX: M48.061 Spinal stenosis, lumbar region without neurogenic claudication (principal) ==

== ENCOUNTER → 2020-04-11 | Outpatient (POV) | payer OTHER ==
[~2020-04-11] MED LIST changes: +ISOVUE-M 300 61% 15ML VIAL ONE; +LIDOCAINE 1% SDV 30ML VIAL ONE; +MIDAZOLAM INJ 2MG/2ML VIAL (J2250 PER 1MG) ONE; +fentaNYL 100 MCG/2 ML INJECTION (J3010) ONE; +methylPREDNISolone SUSP 40MG/ML 1ML VIAL (DEPO MEDROL) ONE
--- NOTE | 2020-05-24 07:18 | REP ---
C-ARM VIEW LUMBAR SPINE: HISTORY: Pain. FINDINGS: A C-arm view of the lumbar spine is performed during lumbar epidural injection by Dr. Dunlap. The needle was seen at the L4-5 level and a small amount of contrast was injected. 21 seconds of fluoroscopy time was utilized. MTDD
== END ==
LOC: M PAIN 09:00
PROVIDERS: ATTEND Anesthesiology
DX: M48.061 Spinal stenosis, lumbar region without neurogenic claudication (principal)

== ENCOUNTER → 2020-07-20 | Outpatient (CLI) | payer OTHER ==
[~2020-07-20] MED LIST changes: -ISOVUE-M 300 61% 15ML VIAL ONE; -LIDOCAINE 1% SDV 30ML VIAL ONE; -MIDAZOLAM INJ 2MG/2ML VIAL (J2250 PER 1MG) ONE; -fentaNYL 100 MCG/2 ML INJECTION (J3010) ONE; -methylPREDNISolone SUSP 40MG/ML 1ML VIAL (DEPO MEDROL) ONE
--- NOTE | 2020-07-23 00:25 | ECWPNPC ---
PATIENT NAME: JIMENEZ MARIO : 1980 GENDER: FEMALE VISIT DATE: 07/20/2020 DISCHARGE DATE: 07/20/20 1544 VISIT LOCKED DATE TIME: PHYSICIAN: CAROLINE HICKMAN RESOURCE: CAROLINE HICKMAN REASON FOR APPOINTMENT 1. LOW BACK PAIN HISTORY OF PRESENT ILLNESS GENERAL: HERE FOR POST PROCEDURE F/U .HAD L4/5 LESI ON 04/11/2020.IMPROVEMENT IN LOW BACK PAIN CONTINUES TODAY.REPORTS NO IMPROVEMENT IN RIGHT LATERAL THIGH AND HIP PAIN POST PROCEDURE. -. FALL RISK SCREENING: SCREENING :NO FALLS REPORTED IN THE LAST YEAR PAIN SCREENING: PATIENT HAS A COMPLAINT OF ACUTE OR CHRONIC PAIN :YES LOCATION OF PAIN:NECK, UPPER BACK, MID BACK, LOW BACK, RIGHT HIP, LEG(S) RIGHT LEG INTENSITY OF PAIN (SCALE OF 1 TO 10):2 WHAT DOES YOUR PAIN FEEL LIKE:ACHING, SHARP, THROBBING DULL THROBBING DURATION:CONTINOUS, CONSTANT PAIN IS INCREASED BY:ACTIVITIES, PROLONGED STANDING LIFTING ANY OBJECT, HOLDING A BABY PAIN IS DECREASED BY:USE OF PAIN MEDICATIONS, OTHERS LAYING DOWN NURSING NOTE: -. PAIN CENTER INTAKE QUESTIONS: DO YOU HAVE A HISTORY OF MRSA? :NO DO YOU TAKE A BLOOD THINNERS? :NO DO YOU HAVE ANY BLEEDING DISORDERS? :NO ANY NEW NUMBNESS OR WEAKNESS IN YOUR LEGS OR ARMS? :NO ANY PACEMAKER,DEFIBRILLATOR, OR DORSAL COLUMN STIMULATOR? :NO DO YOU HAVE ANY RASHES OR OPEN SORES? :NO ARE YOU ALLERGIC TO IV DYE? :NO ARE YOU DIABETIC? :NO ANY NEW PROBLEMS WITH YOUR MEDICATIONS? :NO HAVE YOU RECEIVED A VACCINE IN THE PAST 30 DAYS? :NO DO YOU PLAN TO RECEIVE A VACCINE IN THE NEXT 21 DAYS? :NO DO YOU NEED ANY PRESCRIPTION? :NO DO YOU TAKE ANY IMMUNOSUPPRESSIVE MEDICATIONS? :NO IS THERE A CHANCE YOU COULD BE ? :NO ARE YOU BREAST FEEDING? :NO CURRENT MEDICATIONS TAKING ATORVASTATIN CALCIUM 80 MG TABLET 1 TABLET ORALLY ONCE A DAY TAKING SUMATRIPTAN SUCCINATE 100 MG TABLET 1 TABLET AT LEAST 2 HOURS BETWEEN DOSES NEEDED ORALLY ONE TABLET DIRECTED FOR MIGRAINES AND REPEAT IN 2 HOURS MDD 2 TAKING VITAMIN D3 25 MCG (1000 UT) CAPSULE 1 CAPSULE ORALLY 2000 UNITS BY MOUTH DAILY TAKING CLONAZEPAM 0.5 MG TABLET TAKE UP TO 3 TABS BEFORE BEDTIME ORALLY ONCE A DAY TAKING GEMFIBROZIL 600 MG TABLET 1 TABLET 30 MINUTES BEFORE MORNING AND EVENING MEALS ORALLY DAILY TAKING HYDROXYZINE HCL 10 MG TABLET DIRECTED ORALLY THREE TIMES DAILY NEEDED HOLD IF DROWSY TAKING OXCARBAZEPINE 600 MG TABLET 1 TABLET ORALLY TWICE A DAY TAKING HYDROCODONE-ACETAMINOPHEN 7.5-325 MG TABLET 1 TABLET NEEDED ORALLY BID AND AT HS NEEDED MDD3 TAKING ADDERALL XR 20 MG CAPSULE EXTENDED RELEASE 24 HOUR 1 CAPSULE IN THE MORNING ORALLY ONCE A DAY TAKING LURASIDONE HCL 120 MG TABLET 1/2 TABLET ORALLY ONCE A DAY TAKING GABAPENTIN 300 MG TABLET 3 CAPSULE ORALLY BEFORE BEDTIME TAKING TIZANIDINE HCL 4 MG TABLET 1 TABLET NEEDED ORALLY THREE TIMES A DAY TAKING PRILOSEC OTC 20 MG TABLET DELAYED RELEASE 1 TABLET 30 MINUTES BEFORE MORNING MEAL ORALLY ONCE A DAY, NOTES: PATIENT THINKS IT MAY BE 40 MG TAKING ZOFRAN 8 MG TABLET 1 TABLET NEEDED ORALLY ONCE A DAY NOT-TAKING WELLBUTRIN XL 150 MG TABLET EXTENDED RELEASE 24 HOUR 1 TABLET ORALLY BID NOT-TAKING CARISOPRODOL 350 MG TABLET 1 TABLET NEEDED ORALLY FOR SPASMS AND PAIN EVERY 12 HOURS NEEDED MDD2 NOT-TAKING NICOTINE STEP 1 21 MG/24HR PATCH 24 HOUR 1 PATCH TO SKIN TRANSDERMAL ONCE A DAY MEDICATION LIST REVIEWED AND RECONCILED WITH THE PATIENT PAST MEDICAL HISTORY ADHD BIPOLAR PTSD SEVERE CHRONIC LOWER BACK PAIN 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 SEVERE ANXIETY MIGRAINES DYSLIPIDEMIA ARTHRITIS 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 1 SON(S) , 2 DAUGHTER(S) - HEALTHY. FATHER- THYROID DISEASE, SEVERE ARTHRITISMOTHER CERVICAL CANCER SISTER- HAS PSYCH HISTORY. SOCIAL HISTORY GENERAL: TOBACCO USE ARE YOU A:CURRENT SMOKER ARE YOU INTERESTED IN QUITTING?READY TO QUIT COUNSELED THE PATIENT ON TOBACCO USE, CESSATION [id number]/18/2020 HOW MANY CIGARETTES A DAY DO YOU SMOKE?5 OR LESS HOW SOON AFTER YOU WAKE UP DO YOU SMOKE YOUR FIRST CIGARETTE?6-30 MIN HOW OFTEN DO YOU SMOKE CIGARETTES?EVERY DAY PATIENT COUNSELED ON THE DANGERS OF TOBACCO USE AND URGED TO QUIT:07/20/2020 VAPORNO E-CIGARETTENO LATEX QUESTIONNAIRE LATEX ALLERGY : HAVE YOU EVER DEVELOPED ANY TYPE OF REACTION AFTER HANDLING LATEX PRODUCTS SUCH RUBBER GLOVES, CONDOMS, DIAPHRAGMS, BALLOONS, SOCKS, OR UNDERWEAR?NO LATEX ALLERGY : HAVE YOU EVER DEVELOPED ANY TYPE OF REACTION DURING OR AFTER DENTAL APPOINTMENT, VAGINAL/RECTAL EXAMINATION, SURGICAL PROCEDURE, OR ANY OTHER EXPOSURE?NO LATEX RISK : HAVE YOU EVER HAD ANY DIFFICULTY BREATHING OR HIVES AFTER EATING OR HANDLING ANY FRUITS, OR VEGETABLES; SUCH KIWI, BANANAS, STONE FRUITS, OR CHESTNUTSNO LATEX RISK : DO YOU HAVE A PREVIOUS PERSONAL HISTORY OF MORE THAN NINE SURGERIES, SPINA BIFIDA, OR REPEATED CATHERIZATIONS? NO LATEX RISK : ARE YOU FREQUENTLY EXPOSED TO LATEX PRODUCTS IN YOUR OCCUPATION?NO DATE ASKED : 03/21/2020 ALCOHOL SCREENING DID YOU HAVE A DRINK CONTAINING ALCOHOL IN THE PAST YEAR?YES HOW OFTEN DID YOU HAVE SIX OR MORE DRINKS ON ONE OCCASION IN THE PAST YEAR?NEVER (0 POINTS) HOW MANY DRINKS DID YOU HAVE ON A TYPICAL DAY WHEN YOU WERE DRINKING IN THE PAST YEAR?1 OR 2 (0 POINTS) HOW OFTEN DID YOU HAVE A DRINK CONTAINING ALCOHOL IN THE PAST YEAR?MONTHLY OR LESS (1 POINT) POINTS1 INTERPRETATIONNEGATIVE RECREATIONAL DRUG USE DRUG USE?NO PATIENT DENIES ABUSE OR MISSUSED OF ANY MEDICATION DENIES PATIENT DENIES USE OF ANY ILLEGAL SUBSTANCE INCLUDING MARIJUANA OR COCAINE DENIES CAFFEINE CAFFEINE USE?YES HOW OFTEN AND HOW MUCH? COFFEE, 4/DAY JEWISH JEWISH NO CONFUCIANIST BELIEFS THAT WOULD IMPACT HEALTH CARE. 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 EXERCISE: NO REGULAR EXERCISE. MARITAL STATUS: . OTHERS AT HOME: SPOUSE, CHILDREN. PAIN CLINIC PFS, CLERGY, PUBLIC HEALTH REFERRALS PFS REFERRAL NEEDED?NO CLERGY REFERRAL NEEDED?NO PUBLIC HEALTH REFERRAL NEEDED?NO WAS THE PROVIDER NOTIFIED OF ANY PERTINENT INFO?YES HAS THE PATIENT BEEN EDUCATED REGARDING HIS/HER PLAN OF CARE?YES HAS THE PATIENT BEEN EDUCATED REGARDING PAIN, THE RISK FOR PAIN, THE IMPORTANCE OF EFFECTIVE PAIN MANAGEMENT, AND THE PAIN ASSESSMENT PROCESS?YES HOUSING: OWNS HOME. ADVANCE DIRECTIVE ADVANCE DIRECTIVE DISCUSSED WITH PATIENT:YES PATIENT DOES NOT HAVE ANY ADVANCED DIRECTIVES AND DECLINES INFORMATION ON HCP AT THIS TIME. HOSPITALIZATION/MAJOR DIAGNOSTIC PROCEDURE KIDNEY STONES CHILDBIRTH AFTER CHILDBIRTH FROM [place] HIP SURGERY REVIEW OF SYSTEMS CONSTITUTIONAL: ANY RECENT FEVER NO . CHILLS NO . WEIGHT CHANGE OF UNKNOWN REASONS NO . GASTROENTEROLOGY: NEW UNEXPLAINABLE CHANGES IN BOWEL CONTROL NO . CONSTIPATION NO . GENITOURINARY: ANY NEW CHANGE IN BLADDER CONTROL? NO . NEUROLOGY: NEW ONSET DIZZINESS OR NEUROLOGICAL CHANGES NOT MENTIONED NO . NEW NUMBNESS OR PAIN PATTERNS NOT MENTIONED AND PERTINENT TO TODAY'S VISIT NO . CARDIOLOGY: NEW CHEST PRESSURE NO . NEW CHEST PAIN NO . RESPIRATORY: UNEXPLAINABLE COUGH NO . NEW SHORTNESS OF BREATH NO . VITAL SIGNS WT 146.4 LBS, HT 62 IN, BMI 26.77 INDEX, BP 140/76 MM HG, HR 75 /MIN, RR 16 /MIN, TEMP 97.0 F, OXYGEN SAT % 98%, SAFE IN ENV? (Y/N) Y, REVIEWED BY: JSJ. CARMEL RN. EXAMINATION GENERAL EXAMINATION: GENERALAWAKE,ALERT ,PLEASANT . PSYCHAFFECT NORMAL . LUNGS:LUNG GARCES ARE CLEAR TO AUSCULTATION BILATERALLY. GOOD MOVEMENT OF AIR . HEART:S1, S2 IN A REGULAR RATE AND RHYTHM. NO SIGNIFICANT MURMURS, RUBS OR GALLOPS NOTED . ASSESSMENTS SPINAL STENOSIS, LUMBAR REGION, WITHOUT NEUROGENIC CLAUDICATION - M48.061 (PRIMARY) TREATMENT SPINAL STENOSIS, LUMBAR REGION, WITHOUT NEUROGENIC CLAUDICATION NOTES: CONTINUE HOME EXCERSISE/STRETCHING. PROCEDURE CODES FA211 ESTABILISHED PATIENT [facility] FACILITY CHARGE DISPOSITION & COMMUNICATION FOLLOW UP 3 MONTHS (REASON: LOW BACK PAIN) ELECTRONICALLY SIGNED BY ANAYELI MORAN ON 07/22/2020 AT 02:30 PM EST DISCLAIMER : THIS IS A VISIT SUMMARY EXTRACTED FROM THE [employer] CHART. IT IS NOT A COPY OF THE [employer] PROGRESS NOTE. CARL
== END ==
LOC: M PAIN 14:30
PROVIDERS: ATTEND Nurse Practitioner Family
DX: M48.061 Spinal stenosis, lumbar region without neurogenic claudication (principal); E78.2 Mixed hyperlipidemia; F17.210 Nicotine dependence, cigarettes, uncomplicated; Z79.891 Long term (current) use of opiate analgesic; Z79.899 Other long term (current) drug therapy; Z88.8 Allergy status to other drugs, medicaments and biological substances

== ENCOUNTER → 2020-10-20 | Outpatient (CLI) | payer OTHER ==
--- NOTE | 2020-10-28 09:57 | ECWPNPC ---
PATIENT NAME: JIMENEZ MARIO : 1980 GENDER: FEMALE VISIT DATE: 10/20/2020 DISCHARGE DATE: 10/20/20 1538 VISIT LOCKED DATE TIME: PHYSICIAN: CAROLINE HICKMAN RESOURCE: CAROLINE HICKMAN REASON FOR APPOINTMENT 1. LOW BACK PAIN HISTORY OF PRESENT ILLNESS DEPRESSION SCREENING: PHQ-2 (2015 EDITION) LITTLE INTEREST OR PLEASURE IN DOING THINGS?NOT AT ALL FEELING DOWN, DEPRESSED, OR HOPELESS?SEVERAL DAYS TOTAL SCORE1 GENERAL: HERE FOR FOLLOW-UP OF CHRONIC LOW BACK PAIN. HAS BEEN EXPERIENCING SEVERE INCREASES IN HER LOW BACK PAIN THAT RADIATES INTO HER THIGHS, RIGHT GREATER THAN LEFT, OVER THE PAST 6 WEEKS. REVIEWED MRI OF THE LS-SPINE. PATIENT IS VERY HYPERSENSITIVE TO EVEN LIGHT TOUCH OVER HER BACK. - -. FALL RISK SCREENING: SCREENING :NO FALLS REPORTED IN THE LAST YEAR PAIN SCREENING: PATIENT HAS A COMPLAINT OF ACUTE OR CHRONIC PAIN :YES LOCATION OF PAIN:LOW BACK, RIGHT HIP, LEG(S) INTENSITY OF PAIN (SCALE OF 1 TO 10):4 WHAT DOES YOUR PAIN FEEL LIKE:ACHING, CONTINOUS DURATION:CONTINOUS, AWAKENS FROM SLEEP PAIN IS INCREASED BY:ACTIVITIES, PROLONGED STANDING PAIN IS DECREASED BY:USE OF PAIN MEDICATIONS, OTHERS HEAT, MASSAGE CHAIR, LAYING DOWN NURSING NOTE: -. PAIN CENTER INTAKE QUESTIONS: DO YOU HAVE A HISTORY OF MRSA? :NO DO YOU TAKE A BLOOD THINNERS? :NO DO YOU HAVE ANY BLEEDING DISORDERS? :NO ANY NEW NUMBNESS OR WEAKNESS IN YOUR LEGS OR ARMS? :NO ANY PACEMAKER,DEFIBRILLATOR, OR DORSAL COLUMN STIMULATOR? :NO DO YOU HAVE ANY RASHES OR OPEN SORES? :NO ARE YOU ALLERGIC TO IV DYE? :NO ARE YOU DIABETIC? :NO ANY NEW PROBLEMS WITH YOUR MEDICATIONS? :NO HAVE YOU RECEIVED A VACCINE IN THE PAST 30 DAYS? :YES IF SO WHAT VACCINE AND WHEN? FLU AND TETANUS VACCINATION 10/17/2020 DO YOU PLAN TO RECEIVE A VACCINE IN THE NEXT 21 DAYS? :NO DO YOU NEED ANY PRESCRIPTION? :NO DO YOU TAKE ANY IMMUNOSUPPRESSIVE MEDICATIONS? :NO IS THERE A CHANCE YOU COULD BE ? :NO ARE YOU BREAST FEEDING? :NO CURRENT MEDICATIONS TAKING ATORVASTATIN CALCIUM 80 MG TABLET 1 TABLET ORALLY ONCE A DAY TAKING SUMATRIPTAN SUCCINATE 100 MG TABLET 1 TABLET AT LEAST 2 HOURS BETWEEN DOSES NEEDED ORALLY ONE TABLET DIRECTED FOR MIGRAINES AND REPEAT IN 2 HOURS MDD 2 TAKING VITAMIN D3 25 MCG (1000 UT) CAPSULE 1 CAPSULE ORALLY 2000 UNITS BY MOUTH DAILY TAKING CLONAZEPAM 0.5 MG TABLET TAKE UP TO 3 TABS BEFORE BEDTIME ORALLY ONCE A DAY TAKING GEMFIBROZIL 600 MG TABLET 1 TABLET 30 MINUTES BEFORE MORNING AND EVENING MEALS ORALLY DAILY TAKING HYDROXYZINE HCL 10 MG TABLET DIRECTED ORALLY THREE TIMES DAILY NEEDED HOLD IF DROWSY TAKING OXCARBAZEPINE 600 MG TABLET 1 TABLET ORALLY TWICE A DAY TAKING HYDROCODONE-ACETAMINOPHEN 7.5-325 MG TABLET 1 TABLET NEEDED ORALLY BID AND AT HS NEEDED MDD3 TAKING ADDERALL XR 20 MG CAPSULE EXTENDED RELEASE 24 HOUR 1 CAPSULE IN THE MORNING ORALLY ONCE A DAY TAKING LURASIDONE HCL 120 MG TABLET 1/2 TABLET ORALLY ONCE A DAY TAKING GABAPENTIN 300 MG TABLET 3 CAPSULE ORALLY BEFORE BEDTIME TAKING TIZANIDINE HCL 4 MG TABLET 1 TABLET NEEDED ORALLY THREE TIMES A DAY TAKING PRILOSEC OTC 20 MG TABLET DELAYED RELEASE 1 TABLET 30 MINUTES BEFORE MORNING MEAL ORALLY ONCE A DAY, NOTES: PATIENT THINKS IT MAY BE 40 MG TAKING ZOFRAN 8 MG TABLET 1 TABLET NEEDED ORALLY ONCE A DAY NOT-TAKING WELLBUTRIN XL 150 MG TABLET EXTENDED RELEASE 24 HOUR 1 TABLET ORALLY BID NOT-TAKING CARISOPRODOL 350 MG TABLET 1 TABLET NEEDED ORALLY FOR SPASMS AND PAIN EVERY 12 HOURS NEEDED MDD2 NOT-TAKING NICOTINE STEP 1 21 MG/24HR PATCH 24 HOUR 1 PATCH TO SKIN TRANSDERMAL ONCE A DAY MEDICATION LIST REVIEWED AND RECONCILED WITH THE PATIENT PAST MEDICAL HISTORY ADHD BIPOLAR PTSD SEVERE CHRONIC LOWER BACK PAIN 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 SEVERE ANXIETY MIGRAINES DYSLIPIDEMIA ARTHRITIS 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 PLEURISY IN RIGHT LUNG ENLARGED LYMPH NODE IN RIGHT UPPER QUADRANT ALLERGIES NIACIN: SEVERE RASH AND DYSPNEA - ALLERGY SOCIAL HISTORY GENERAL: TOBACCO USE ARE YOU A:CURRENT SMOKER HOW OFTEN DO YOU SMOKE CIGARETTES?EVERY DAY HOW SOON AFTER YOU WAKE UP DO YOU SMOKE YOUR FIRST CIGARETTE?6-30 MIN HOW MANY CIGARETTES A DAY DO YOU SMOKE?5 OR LESS ARE YOU INTERESTED IN QUITTING?READY TO QUIT PATIENT COUNSELED ON THE DANGERS OF TOBACCO USE AND URGED TO QUIT:07/20/2020 COUNSELED THE PATIENT ON TOBACCO USE, CESSATION [id number]/18/2020 VAPORNO E-CIGARETTENO LATEX QUESTIONNAIRE LATEX ALLERGY : HAVE YOU EVER DEVELOPED ANY TYPE OF REACTION AFTER HANDLING LATEX PRODUCTS SUCH RUBBER GLOVES, CONDOMS, DIAPHRAGMS, BALLOONS, SOCKS, OR UNDERWEAR?NO LATEX ALLERGY : HAVE YOU EVER DEVELOPED ANY TYPE OF REACTION DURING OR AFTER DENTAL APPOINTMENT, VAGINAL/RECTAL EXAMINATION, SURGICAL PROCEDURE, OR ANY OTHER EXPOSURE?NO LATEX RISK : HAVE YOU EVER HAD ANY DIFFICULTY BREATHING OR HIVES AFTER EATING OR HANDLING ANY FRUITS, OR VEGETABLES; SUCH KIWI, BANANAS, STONE FRUITS, OR CHESTNUTSNO LATEX RISK : DO YOU HAVE A PREVIOUS PERSONAL HISTORY OF MORE THAN NINE SURGERIES, SPINA BIFIDA, OR REPEATED CATHERIZATIONS? NO LATEX RISK : ARE YOU FREQUENTLY EXPOSED TO LATEX PRODUCTS IN YOUR OCCUPATION?NO DATE ASKED : 10/20/2020 ALCOHOL USE: NO. ALCOHOL SCREENING DID YOU HAVE A DRINK CONTAINING ALCOHOL IN THE PAST YEAR?YES HOW OFTEN DID YOU HAVE SIX OR MORE DRINKS ON ONE OCCASION IN THE PAST YEAR?NEVER (0 POINTS) HOW MANY DRINKS DID YOU HAVE ON A TYPICAL DAY WHEN YOU WERE DRINKING IN THE PAST YEAR?1 OR 2 (0 POINTS) HOW OFTEN DID YOU HAVE A DRINK CONTAINING ALCOHOL IN THE PAST YEAR?MONTHLY OR LESS (1 POINT) POINTS1 INTERPRETATIONNEGATIVE RECREATIONAL DRUG USE DRUG USE?NO PATIENT DENIES ABUSE OR MISSUSED OF ANY MEDICATION DENIES PATIENT DENIES USE OF ANY ILLEGAL SUBSTANCE INCLUDING MARIJUANA OR COCAINE DENIES CAFFEINE CAFFEINE USE?YES HOW OFTEN AND HOW MUCH? COFFEE, 4/DAY SIKHISM SIKHISM NO PENTECOSTALISM BELIEFS THAT WOULD IMPACT HEALTH CARE. 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 EXERCISE: NO REGULAR EXERCISE. MARITAL STATUS: . OTHERS AT HOME: SPOUSE, CHILDREN. - PFS REFERRAL NEEDED?NO CLERGY REFERRAL NEEDED?NO PUBLIC HEALTH REFERRAL NEEDED?NO WAS THE PROVIDER NOTIFIED OF ANY PERTINENT INFO?YES HAS THE PATIENT BEEN EDUCATED REGARDING HIS/HER PLAN OF CARE?YES HAS THE PATIENT BEEN EDUCATED REGARDING PAIN, THE RISK FOR PAIN, THE IMPORTANCE OF EFFECTIVE PAIN MANAGEMENT, AND THE PAIN ASSESSMENT PROCESS?YES HOUSING: OWNS HOME. ADVANCE DIRECTIVE ADVANCE DIRECTIVE DISCUSSED WITH PATIENT:YES PATIENT DOES NOT HAVE ANY ADVANCED DIRECTIVES AND DECLINES INFORMATION ON HCP AT THIS TIME. REVIEW OF SYSTEMS CONSTITUTIONAL: ANY RECENT FEVER NO . CHILLS NO . WEIGHT CHANGE OF UNKNOWN REASONS NO . GASTROENTEROLOGY: NEW UNEXPLAINABLE CHANGES IN BOWEL CONTROL NO . CONSTIPATION NO . GENITOURINARY: ANY NEW CHANGE IN BLADDER CONTROL? NO . NEUROLOGY: NEW ONSET DIZZINESS OR NEUROLOGICAL CHANGES NOT MENTIONED NO . NEW NUMBNESS OR PAIN PATTERNS NOT MENTIONED AND PERTINENT TO TODAY'S VISIT NO . CARDIOLOGY: NEW CHEST PRESSURE NO . NEW CHEST PAIN NO . RESPIRATORY: UNEXPLAINABLE COUGH NO . NEW SHORTNESS OF BREATH NO . VITAL SIGNS WT 154.8 LBS, HT 62 IN, BMI 28.31 INDEX, BP 124/67 MM HG, HR 77 /MIN, RR 18 /MIN, TEMP 97.3 F, OXYGEN SAT % 96%, SAFE IN ENV? (Y/N) YES, NA INITIALS AW 1447, REVIEWED BY: CARLOS ALBERTO MCNAIR MA. EXAMINATION GENERAL EXAMINATION: GENERAL ALERT,NO DISTRESS . PSYCH AFFECT NORMAL . LUNGS: LUNG SOUNDS ARE CLEAR . HEART: HEART RATE REGULAR . MUSCULOSKELETAL: MST 5/5 BILAT. LOWER EXTREMITIES . LUMBAR: TENDERNESS BILAT. SIJ R>L. DIAGNOSTIC TESTS REVIEWEDMRI L/S SPINE-10/2019. ASSESSMENTS SACROILIITIS - M46.1 (PRIMARY) TREATMENT SACROILIITIS NOTES: RIGHT SACROILLIAC JOINT BLOCK. OTHERS NOTES: SACROILIAC JOINT INJECTION DOCUMENT PRINTED AND REVIEWED WITH PT. Kiko SULLIVAN RN BSN. PROCEDURE CODES FA211 ESTABILISHED PATIENT [facility] CHARGE DISPOSITION & COMMUNICATION FOLLOW UP POST PROCEDURE (REASON: RIGHT SACROILLIAC JOINT BLOCK) ELECTRONICALLY SIGNED BY ANAYELI MORAN ON 10/27/2020 AT 04:40 PM EST DISCLAIMER : THIS IS A VISIT SUMMARY EXTRACTED FROM THE [employer] CHART. IT IS NOT A COPY OF THE [employer] PROGRESS NOTE. CARL
== END ==
LOC: M PAIN 14:45
PROVIDERS: ATTEND Nurse Practitioner Family
DX: M46.1 Sacroiliitis, not elsewhere classified (principal); G89.29 Other chronic pain; G43.909 Migraine, unspecified, not intractable, without status migrainosus; F17.210 Nicotine dependence, cigarettes, uncomplicated; Z86.59 Personal history of other mental and behavioral disorders; Z88.8 Allergy status to other drugs, medicaments and biological substances; Z79.899 Other long term (current) drug therapy

== ENCOUNTER → 2020-11-04 | Outpatient (CLI) | payer OTHER | LOC: M LABSMTC 13:28 | PROVIDERS: ATTEND Anesthesiology | DX: Z11.52 Encounter for screening for COVID-19 (principal) ==

== ENCOUNTER → 2020-11-09 | Outpatient (CLI) | payer OTHER ==
[~2020-11-09] MED LIST changes: +BUPIVACAINE HCL 0.25% 30ML VIAL As Ordered ONE; +ISOVUE-M 300 61% 15ML VIAL As Ordered ONE; +LIDOCAINE 1% SDV 30ML VIAL As Ordered ONE; +TRIAMCINOLONE ACETONIDE SUSP 40 MG/ML VIAL (J3301) As Ordered ONE
--- NOTE | 2020-11-09 10:37 | REP ---
INDICATION: RIGHT SACROILIAC JOINT BLOCK. COMPARISON: None. TECHNIQUE: Intraoperative fluoroscopic imaging using portable C-arm technique. FINDINGS: Images demonstrate catheter and contrast overlying the right sacroiliac joint. Total fluoroscopic time 10.7 seconds. IMPRESSION: Findings consistent with right sacroiliac joint block. <Electronically signed by Kemar Levy > 11/09/20 1036
--- NOTE | 2020-11-10 02:32 | ECWPNPC ---
PATIENT NAME: JIMENEZ MARIO : 1980 GENDER: FEMALE VISIT DATE: 11/09/2020 DISCHARGE DATE: 11/09/20 0000 VISIT LOCKED DATE TIME: PHYSICIAN: HERBER ASHLEY MD RESOURCE: HERBER ASHLEY MD REASON FOR APPOINTMENT 1. RIGHT SACROILIAC JOINT BLOCK HISTORY OF PRESENT ILLNESS GENERAL: -. FALL RISK SCREENING: SCREENING : NO FALLS REPORTED IN THE LAST YEAR. PAIN SCREENING: PATIENT HAS A COMPLAINT OF ACUTE OR CHRONIC PAIN :YES LOCATION OF PAIN: LOW BACK, RIGHT BUTTOCK, RIGHT LEG INTENSITY OF PAIN (SCALE OF 1 TO 10):9 WHAT DOES YOUR PAIN FEEL LIKE:SHARP, STABBING, CONTINOUS, SHOOTING DURATION:CONSTANT, AWAKENS FROM SLEEP PAIN IS INCREASED BY:ACTIVITIES, PROLONGED STANDING PAIN IS DECREASED BY:USE OF PAIN MEDICATIONS TREATMENT/MEDICATIONS USED TO MANAGE PAIN:OPIOIDS, OTC PAIN RELIEVERS PLAN/GOALS/TREATMENT/INTERVENTION/FOLLOW UP:SEE PLAN NURSING NOTE: -. PAIN CENTER INTAKE QUESTIONS: DO YOU HAVE A HISTORY OF MRSA? :NO DO YOU TAKE A BLOOD THINNERS? :NO DO YOU HAVE ANY BLEEDING DISORDERS? :NO ANY NEW NUMBNESS OR WEAKNESS IN YOUR LEGS OR ARMS? :NO ANY PACEMAKER,DEFIBRILLATOR, OR DORSAL COLUMN STIMULATOR? :NO DO YOU HAVE ANY RASHES OR OPEN SORES? :NO ARE YOU ALLERGIC TO IV DYE? :NO ARE YOU DIABETIC? :NO ANY NEW PROBLEMS WITH YOUR MEDICATIONS? :NO HAVE YOU RECEIVED A VACCINE IN THE PAST 30 DAYS? :NO DO YOU PLAN TO RECEIVE A VACCINE IN THE NEXT 21 DAYS? :NO DO YOU NEED ANY PRESCRIPTION? :NO DO YOU TAKE ANY IMMUNOSUPPRESSIVE MEDICATIONS? :NO ANY HISTORY OF SEIZURES? :NO ANY HISTORY OF CARDIAC ISSUES OR EVENTS? :NO DO YOU HAVE ANY KIDNEY OR LIVER DISEASE? :YES FREQUENT KIDNEY STONES, BUN/ CR WNL PER PATIENT. DO YOU HAVE SLEEP APNEA? :NO ANY RECENT HEAD INJURY? :NO DO YOU HAVE ANY NEW INFECTIONS? :NO IS THERE A CHANCE YOU COULD BE ? :NO ARE YOU BREAST FEEDING? :NO WHEN DID YOU LAST EAT? : 11/08/20 1730 WHEN DID YOU LAST DRINK? : 0530 WHAT DID YOU LAST DRINK? : COFFEE NAME OF PERSON DRIVING YOU HOME? : DAUGHTER (ANNELIESE) DO YOU HAVE ANY OTHER QUESTIONS OR CONCERNS? : NO CURRENT MEDICATIONS TAKING ATORVASTATIN CALCIUM 80 MG TABLET 1 TABLET ORALLY ONCE A DAY TAKING SUMATRIPTAN SUCCINATE 100 MG TABLET 1 TABLET AT LEAST 2 HOURS BETWEEN DOSES NEEDED ORALLY ONE TABLET DIRECTED FOR MIGRAINES AND REPEAT IN 2 HOURS MDD 2 TAKING VITAMIN D3 25 MCG (1000 UT) CAPSULE 1 CAPSULE ORALLY 2000 UNITS BY MOUTH DAILY TAKING CLONAZEPAM 0.5 MG TABLET TAKE UP TO 3 TABS BEFORE BEDTIME ORALLY ONCE A DAY, NOTES: 11/08/201929 TAKING GEMFIBROZIL 600 MG TABLET 1 TABLET 30 MINUTES BEFORE MORNING MEAL ORALLY DAILY TAKING HYDROXYZINE HCL 50 MG TABLET DIRECTED ORALLY THREE TIMES DAILY NEEDED HOLD IF DROWSY, NOTES: 11/08/201929 TAKING OXCARBAZEPINE 600 MG TABLET 1 TABLET ORALLY TWICE A DAY, NOTES: 11/09/20599 TAKING HYDROCODONE-ACETAMINOPHEN 7.5-325 MG TABLET 1 TABLET NEEDED ORALLY BID AND AT HS NEEDED MDD3, NOTES: 11/08/201929 TAKING ADDERALL XR 20 MG CAPSULE EXTENDED RELEASE 24 HOUR 1 CAPSULE IN THE MORNING ORALLY ONCE A DAY TAKING LURASIDONE HCL 80 MG TABLET 1 TABLET ORALLY ONCE A DAY TAKING GABAPENTIN 300 MG TABLET 4 CAPSULE ORALLY BEFORE BEDTIME TAKING TIZANIDINE HCL 4 MG TABLET 1 TABLET NEEDED ORALLY THREE TIMES A DAY, NOTES: 11/08/20599 TAKING PRILOSEC OTC 20 MG TABLET DELAYED RELEASE 2 TABLET 30 MINUTES BEFORE MORNING MEAL ORALLY ONCE A DAY TAKING ZOFRAN 8 MG TABLET 1 TABLET NEEDED ORALLY ONCE A DAY NOT-TAKING WELLBUTRIN XL 150 MG TABLET EXTENDED RELEASE 24 HOUR 1 TABLET ORALLY BID NOT-TAKING CARISOPRODOL 350 MG TABLET 1 TABLET NEEDED ORALLY FOR SPASMS AND PAIN EVERY 12 HOURS NEEDED MDD2 NOT-TAKING NICOTINE STEP 1 21 MG/24HR PATCH 24 HOUR 1 PATCH TO SKIN TRANSDERMAL ONCE A DAY MEDICATION LIST REVIEWED AND RECONCILED WITH THE PATIENT PAST MEDICAL HISTORY ADHD BIPOLAR PTSD SEVERE CHRONIC LOWER BACK PAIN 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 SEVERE ANXIETY MIGRAINES DYSLIPIDEMIA ARTHRITIS 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 PLEURISY IN RIGHT LUNG ENLARGED LYMPH NODE IN RIGHT UPPER QUADRANT ALLERGIES NIACIN: SEVERE RASH AND DYSPNEA - ALLERGY SOCIAL HISTORY GENERAL: TOBACCO USE ARE YOU A:CURRENT SMOKER ARE YOU INTERESTED IN QUITTING?READY TO QUIT COUNSELED THE PATIENT ON TOBACCO USE, CESSATION [id number]/09/2021 HOW MANY CIGARETTES A DAY DO YOU SMOKE?5 OR LESS HOW SOON AFTER YOU WAKE UP DO YOU SMOKE YOUR FIRST CIGARETTE?6-30 MIN HOW OFTEN DO YOU SMOKE CIGARETTES?EVERY DAY PATIENT COUNSELED ON THE DANGERS OF TOBACCO USE AND URGED TO QUIT:11/08/2020 VAPORNO E-CIGARETTENO LATEX QUESTIONNAIRE LATEX ALLERGY : HAVE YOU EVER DEVELOPED ANY TYPE OF REACTION AFTER HANDLING LATEX PRODUCTS SUCH RUBBER GLOVES, CONDOMS, DIAPHRAGMS, BALLOONS, SOCKS, OR UNDERWEAR?NO LATEX ALLERGY : HAVE YOU EVER DEVELOPED ANY TYPE OF REACTION DURING OR AFTER DENTAL APPOINTMENT, VAGINAL/RECTAL EXAMINATION, SURGICAL PROCEDURE, OR ANY OTHER EXPOSURE?NO LATEX RISK : HAVE YOU EVER HAD ANY DIFFICULTY BREATHING OR HIVES AFTER EATING OR HANDLING ANY FRUITS, OR VEGETABLES; SUCH KIWI, BANANAS, STONE FRUITS, OR CHESTNUTSNO LATEX RISK : DO YOU HAVE A PREVIOUS PERSONAL HISTORY OF MORE THAN NINE SURGERIES, SPINA BIFIDA, OR REPEATED CATHERIZATIONS? NO LATEX RISK : ARE YOU FREQUENTLY EXPOSED TO LATEX PRODUCTS IN YOUR OCCUPATION?NO DATE ASKED : 11/08/2020 ALCOHOL USE: NO. ALCOHOL SCREENING DID YOU HAVE A DRINK CONTAINING ALCOHOL IN THE PAST YEAR?YES HOW OFTEN DID YOU HAVE SIX OR MORE DRINKS ON ONE OCCASION IN THE PAST YEAR?NEVER (0 POINTS) HOW MANY DRINKS DID YOU HAVE ON A TYPICAL DAY WHEN YOU WERE DRINKING IN THE PAST YEAR?1 OR 2 (0 POINTS) HOW OFTEN DID YOU HAVE A DRINK CONTAINING ALCOHOL IN THE PAST YEAR?MONTHLY OR LESS (1 POINT) POINTS1 INTERPRETATIONNEGATIVE RECREATIONAL DRUG USE DRUG USE?NO PATIENT DENIES ABUSE OR MISSUSED OF ANY MEDICATION DENIES PATIENT DENIES USE OF ANY ILLEGAL SUBSTANCE INCLUDING MARIJUANA OR COCAINE DENIES CAFFEINE CAFFEINE USE?YES HOW OFTEN AND HOW MUCH? COFFEE, 4/DAY JAIN JAIN NO RESTORATION BELIEFS THAT WOULD IMPACT HEALTH CARE. 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 EXERCISE: NO REGULAR EXERCISE. MARITAL STATUS: . OTHERS AT HOME: SPOUSE, CHILDREN. - PFS REFERRAL NEEDED?NO CLERGY REFERRAL NEEDED?NO PUBLIC HEALTH REFERRAL NEEDED?NO WAS THE PROVIDER NOTIFIED OF ANY PERTINENT INFO?YES HAS THE PATIENT BEEN EDUCATED REGARDING HIS/HER PLAN OF CARE?YES HAS THE PATIENT BEEN EDUCATED REGARDING PAIN, THE RISK FOR PAIN, THE IMPORTANCE OF EFFECTIVE PAIN MANAGEMENT, AND THE PAIN ASSESSMENT PROCESS?YES HOUSING: OWNS HOME. ADVANCE DIRECTIVE ADVANCE DIRECTIVE DISCUSSED WITH PATIENT:YES PATIENT DOES NOT HAVE ANY ADVANCED DIRECTIVES AND DECLINES INFORMATION ON HCP AT THIS TIME. VITAL SIGNS WT 155.4 LBS, HT 62 IN, BMI 28.42 INDEX, BP 117/64 MM HG, HR 75 /MIN, RR 16 /MIN, TEMP 98.9 F, OXYGEN SAT % 95%, SAFE IN ENV? (Y/N) YES, NA INITIALS SC 08:20, REVIEWED BY: APA. YAW RN. EXAMINATION GENERAL EXAMINATION: THE PATIENT IS ALERT, ORIENTED TIMES THREE AND COOPERATIVE. LUNGS ARE CLEAR TO AUSCULTATION. HEART SHOWS REGULAR RHYTHM, NO MURMURS AND NO GALLOPS. ASSESSMENTS SACROILIITIS - M46.1 (PRIMARY) TREATMENT SACROILIITIS [facility] FLUORO GUIDANCE (PAIN)[id number] COMPLETION OF PROCEDURAL VISIT WHEN MEETS CRITERIAPEMERCEDES,LU R 11/09/2020 10:14:18 AM > CRITERIA MET OTHERS NOTES: 11/08/20 1726 PAT COMPLETED. Pablo KNOX RN BSN. PROCEDURES PAIN NURSING RECORD PROCEDURE IN ROOM 0937, PHYSICIAN IN ROOM 0955, START 0959, FINISH 1001, PHYSICIAN OUT OF ROOM 1004, OUT OF ROOM 1009, ECG NORMAL SINUS, PATIENT SHIELDED YES, SAFETY STRAP YES, PREP CHLOROPREP Eduardo TIDWELL RN, DRESSING TEGADERM DR. ASHLEY LOC: PETRAS,LU R 11/09/2020 9:59:26 AM > , 1. ALERT, ORIENTED RESP: PETRAS,LU R 11/09/2020 9:59:29 AM > , 1. REGULAR, NO DYSPNEA COLOR: PETRAS,LU R 11/09/2020 9:59:32 AM > , 1. PINK SKIN: PETRAS,LU R 11/09/2020 9:59:35 AM > , 1. WARM, DRY POSITION: PETRGINOLU R 11/09/2020 9:59:38 AM > , 1. PRONE VITALS: YAWLU R 11/09/2020 9:41:31 AM > 110/64, 60, 16, 96% PETRGINO,LU R 11/09/2020 9:44:47 AM > 112/61, 64, 18, 96% PETRAS,LU R 11/09/2020 9:58:40 AM > 110/65, 60, 16, 96% , PETRAS,LU R 11/09/2020 10:05:43 AM > 109/70, 64, 18, 95% , PETRAS,LU R 11/09/2020 10:12:47 AM > 114/58, 62, 20, 98% COMPLETION OF PROCEDURE APPOINTMENT: POST PAIN 9, DRESSING SITE DRY AND INTACT, IV N/A, GAIT STEADY, TEACHING COMPLETED, PATIENT ACKNOWLEDGES UNDERSTANDING YES, PROCEDURE APPOINTMENT COMPLETED AT 1020 BY: Eduardo TIDWELL RN PRE PROCEDURE DIAGNOSIS SACROILITIS, SACROILIAC JOINT DYSFUNCTION POST PROCEDURE DIAGNOSIS SACROILIITIS, SACROILIAC JOINT DYSFUNCTION PROCEDURE RIGHT SACROILIAC JOINT BLOCK SURGEON DR. HERBER ASHLEY INFORMATICS SPEC NONE ANESTHESIA LOCAL PRE PROCEDURE NOTE THE PATIENT HAS A HISTORY OF CHRONIC LOW BACK PAIN. I EVALUATED THE PATIENT AND REVIEWED THE CHART. I WENT OVER THE RISKS, BENEFITS AND ALTERNATIVES ASSOCIATED WITH THIS PROCEDURE. THE PATIENT WOULD LIKE TO PROCEED AND GIVES CONSENT TO PERFORM THE PROCEDURE. THE PATIENT DENIES UNEXPLAINABLE WEIGHT LOSS, FEVER, CHILLS OR NEW CHANGES IN URINARY OR BOWEL CONTROL. THE PATIENT IS COVID-19 NEGATIVE. DESCRIPTION OF PROCEDURE THE PATIENT WAS BROUGHT TO THE PROCEDURE ROOM AND PLACED IN THE PRONE POSITION. THE LUMBOSACRAL AREA WAS CLEANED WITH CHLORAPREP SOLUTION AND DRAPED ASEPTICALLY. THE PROCEDURE WAS DONE UNDER STERILE CONDITIONS. A TIMEOUT WAS PERFORMED WHERE THE CONSENTED SITE WAS VERIFIED WITH EVERYONE IN THE ROOM UNDER FLUOROSCOPIC GUIDANCE, THE TARGET POINT WAS SELECTED AT THE LOWER BORDER OF THE RIGHT SACROILIAC JOINT. TARGET POINT WAS SELECTED AFTER MEDIAL ROTATION AND TILT OF THE MAGNIFIER OR THE C-ARM. I CONFIRMED AGAIN THE SITE OF TARGET. LIDOCAINE 0.5% WAS USED TO NUMB THE SKIN AND THE SUBCUTANEOUS TISSUE BELOW IT. SPINAL NEEDLE, 22-GAUGE, WAS ADVANCED UNDER FLUOROSCOPIC GUIDANCE AND FOLLOWING PATIENT FEEDBACK UNTIL THE TARGET WAS TOUCHED. THE POSITION OF THE NEEDLE WAS VERIFIED WITH AP AND OBLIQUE VIEWS. AFTER PROPER POSITION OF THE NEEDLE WAS ACHIEVED, ISOVUE-M DYE 30%, 0.1 ML, WAS INJECTED SHOWING ADEQUATE SPREAD OF THE DYE. KENALOG 40 MG WAS INJECTED. THEN, A SOLUTION OF 3.0 ML OF BUPIVACAINE 0.125% WAS USED TO FLUSH THE NEEDLE. THE MEDICATIONS WERE VERIFIED WITH THE NURSE. THERE WAS NO EVIDENCE OF BLOOD, PARESTHESIA OR CEREBROSPINAL FLUID DURING THE PROCEDURE. THE PATIENT WAS SENT TO THE RECOVERY ROOM. THE PATIENT WAS MOVING THE EXTREMITIES AND DOING WELL. THERE WERE NO COMPLICATIONS DURING THE PROCEDURE. ESTIMATED BLOOD LOSS WAS LESS THAN 5 ML. FLUOROSCOPIC TIME WAS 10 SECONDS. POST PROCEDURE NOTE DEPENDING ON THE RESULTS, CONSIDER A LUMBAR EPIDURAL AT L5-S1. THE PATIENT WILL BE SEEN IN A FOLLOW UP IN THE NEXT FEW WEEKS. I AM LOOKING FOR LONG LASTING RELIEF FOR THE PATIENT WITH THIS INTERVENTION. INSTRUCTIONS WERE GIVEN, QUESTIONS WERE ANSWERED AND THE PATIENT EXPRESSED UNDERSTANDING AND AGREES WITH THE PAIN. I, KATHYA ADVIS, DOCUMENTED THE ABOVE INFORMATION ACTING A SCRIBE FOR DR. ASHLEY. I HAVE REVIEWED THE ABOVE DOCUMENT WRITTEN BY KATHYA DAVIS, ELASTIC ATTACHER [id number], AND I VERIFY THAT IT IS ACCURATE. PROCEDURE CODES 93093 INJECT SACROILIAC JOINT, MODIFIERS: RT DISPOSITION & COMMUNICATION FOLLOW UP FOLLOW UP WITH BARREL POLISHER (REASON: POST RIGHT SACROILIAC JOINT BLOCK) ELECTRONICALLY SIGNED BY HERBER ASHLEY MD, MD ON 11/09/2020 AT 12:43 PM EST DISCLAIMER : THIS IS A VISIT SUMMARY EXTRACTED FROM THE [email or web address] CHART. IT IS NOT A COPY OF THE [email or web address] PROGRESS NOTE. MTDEstevan
== END ==
LOC: M PAIN 08:30
PROVIDERS: ATTEND Anesthesiology
DX: M46.1 Sacroiliitis, not elsewhere classified (principal); G43.909 Migraine, unspecified, not intractable, without status migrainosus; F17.210 Nicotine dependence, cigarettes, uncomplicated; Z86.59 Personal history of other mental and behavioral disorders; Z91.09 Other allergy status, other than to drugs and biological substances; Z79.899 Other long term (current) drug therapy
CPT/HCPCS: G0260; J3301; Q9967

== ENCOUNTER → 2020-11-23 | Outpatient (CLI) | payer OTHER ==
[~2020-11-23] MED LIST changes: -BUPIVACAINE HCL 0.25% 30ML VIAL As Ordered ONE; -ISOVUE-M 300 61% 15ML VIAL As Ordered ONE; -LIDOCAINE 1% SDV 30ML VIAL As Ordered ONE; -TRIAMCINOLONE ACETONIDE SUSP 40 MG/ML VIAL (J3301) As Ordered ONE
--- NOTE | 2020-11-25 03:41 | ECWPNPC ---
PATIENT NAME: JIMENEZ MARIO : 1980 GENDER: FEMALE VISIT DATE: 11/23/2020 DISCHARGE DATE: 11/23/20 1010 VISIT LOCKED DATE TIME: PHYSICIAN: CAROLINE HICKMAN RESOURCE: CAROLINE HICKMAN REASON FOR APPOINTMENT 1. POST RIGHT SACROILIAC JOINT BLOCK HISTORY OF PRESENT ILLNESS GENERAL: JIMENEZ IS BEING SEEN TODAY FOR POST PROCEDURE FOLLOW-UP. HAD RIGHT SIJ ON 11/09/2020. REPORTING AGGRAVATION WITH PROCEDURE ITSELF. PAIN CALMED DOWN A FEW DAYS AFTER THE PROCEDURE AND SHE FEELS SHE IS HAVING LESS INTENSE PAIN BUT CONTINUES WITH DAILY EPISODES OF PAIN. PAIN IS LOCATED IN THE RIGHT LOW BACK AND RADIATES DOWN RIGHT LEG. APPEARS VERY UNCOMFORTABLE TODAY. REVIEWED MRI OF THE LS-SPINE. REVIEWED POSTPROCEDURE NOTE FROM DR. ASHLEY THAT IS SUGGESTING IF THIS IS NOT EFFECTIVE TO CONSIDER LUMBAR EPIDURAL STEROID INJECTION AT L5-S1. SHE IS REQUESTING PRE-SEDATE. FALL RISK SCREENING: SCREENING : NO FALLS REPORTED IN THE LAST YEAR. PAIN SCREENING: PATIENT HAS A COMPLAINT OF ACUTE OR CHRONIC PAIN :YES LOCATION OF PAIN:LOW BACK, LEG(S) INTENSITY OF PAIN (SCALE OF 1 TO 10):6 WHAT DOES YOUR PAIN FEEL LIKE:THROBBING, SHOOTING DURATION:CONTINOUS, CONSTANT PAIN IS INCREASED BY:ACTIVITIES PAIN IS DECREASED BY:USE OF PAIN MEDICATIONS NURSING NOTE: -. PAIN CENTER INTAKE QUESTIONS: DO YOU HAVE A HISTORY OF MRSA? :NO DO YOU TAKE A BLOOD THINNERS? :NO DO YOU HAVE ANY BLEEDING DISORDERS? :NO ANY NEW NUMBNESS OR WEAKNESS IN YOUR LEGS OR ARMS? :YES NUMBNESS AND TINGLING TO RIGHT FOOT ANY PACEMAKER,DEFIBRILLATOR, OR DORSAL COLUMN STIMULATOR? :NO DO YOU HAVE ANY RASHES OR OPEN SORES? :NO ARE YOU ALLERGIC TO IV DYE? :NO ARE YOU DIABETIC? :NO ANY NEW PROBLEMS WITH YOUR MEDICATIONS? :NO HAVE YOU RECEIVED A VACCINE IN THE PAST 30 DAYS? :NO DO YOU PLAN TO RECEIVE A VACCINE IN THE NEXT 21 DAYS? :YES IF SO WHAT VACCINE AND WHEN? COVID # 1 11/26/20 DO YOU NEED ANY PRESCRIPTION? :NO DO YOU TAKE ANY IMMUNOSUPPRESSIVE MEDICATIONS? :NO DO YOU HAVE ANY KIDNEY OR LIVER DISEASE? :NO IS THERE A CHANCE YOU COULD BE ? :NO ARE YOU BREAST FEEDING? :NO CURRENT MEDICATIONS TAKING ATORVASTATIN CALCIUM 80 MG TABLET 1 TABLET ORALLY ONCE A DAY TAKING SUMATRIPTAN SUCCINATE 100 MG TABLET 1 TABLET AT LEAST 2 HOURS BETWEEN DOSES NEEDED ORALLY ONE TABLET DIRECTED FOR MIGRAINES AND REPEAT IN 2 HOURS MDD 2 TAKING VITAMIN D3 25 MCG (1000 UT) CAPSULE 1 CAPSULE ORALLY 2000 UNITS BY MOUTH DAILY TAKING CLONAZEPAM 0.5 MG TABLET TAKE UP TO 3 TABS BEFORE BEDTIME ORALLY ONCE A DAY TAKING GEMFIBROZIL 600 MG TABLET 1 TABLET 30 MINUTES BEFORE MORNING MEAL ORALLY DAILY TAKING HYDROXYZINE HCL 50 MG TABLET DIRECTED ORALLY THREE TIMES DAILY NEEDED HOLD IF DROWSY TAKING OXCARBAZEPINE 600 MG TABLET 1 TABLET ORALLY TWICE A DAY TAKING HYDROCODONE-ACETAMINOPHEN 7.5-325 MG TABLET 1 TABLET NEEDED ORALLY BID AND AT HS NEEDED MDD3 TAKING ADDERALL XR 20 MG CAPSULE EXTENDED RELEASE 24 HOUR 1 CAPSULE IN THE MORNING ORALLY ONCE A DAY TAKING LURASIDONE HCL 80 MG TABLET 1 TABLET ORALLY ONCE A DAY TAKING GABAPENTIN 300 MG TABLET 4 CAPSULE ORALLY BEFORE BEDTIME TAKING TIZANIDINE HCL 4 MG TABLET 1 TABLET NEEDED ORALLY THREE TIMES A DAY TAKING PRILOSEC OTC 20 MG TABLET DELAYED RELEASE 2 TABLET 30 MINUTES BEFORE MORNING MEAL ORALLY ONCE A DAY TAKING ZOFRAN 8 MG TABLET 1 TABLET NEEDED ORALLY ONCE A DAY NOT-TAKING WELLBUTRIN XL 150 MG TABLET EXTENDED RELEASE 24 HOUR 1 TABLET ORALLY BID NOT-TAKING CARISOPRODOL 350 MG TABLET 1 TABLET NEEDED ORALLY FOR SPASMS AND PAIN EVERY 12 HOURS NEEDED MDD2 NOT-TAKING NICOTINE STEP 1 21 MG/24HR PATCH 24 HOUR 1 PATCH TO SKIN TRANSDERMAL ONCE A DAY MEDICATION LIST REVIEWED AND RECONCILED WITH THE PATIENT PAST MEDICAL HISTORY ADHD BIPOLAR PTSD SEVERE CHRONIC LOWER BACK PAIN 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 SEVERE ANXIETY MIGRAINES DYSLIPIDEMIA ARTHRITIS 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 PLEURISY IN RIGHT LUNG ENLARGED LYMPH NODE IN RIGHT UPPER QUADRANT ALLERGIES NIACIN: SEVERE RASH AND DYSPNEA - ALLERGY SOCIAL HISTORY GENERAL: TOBACCO USE ARE YOU A:CURRENT SMOKER HOW OFTEN DO YOU SMOKE CIGARETTES?EVERY DAY HOW SOON AFTER YOU WAKE UP DO YOU SMOKE YOUR FIRST CIGARETTE?6-30 MIN HOW MANY CIGARETTES A DAY DO YOU SMOKE?5 OR LESS ARE YOU INTERESTED IN QUITTING?READY TO QUIT PATIENT COUNSELED ON THE DANGERS OF TOBACCO USE AND URGED TO QUIT:11/08/2020 COUNSELED THE PATIENT ON TOBACCO USE, CESSATION PGYISMIN60/09/2021 VAPORNO E-CIGARETTENO LATEX QUESTIONNAIRE LATEX ALLERGY : HAVE YOU EVER DEVELOPED ANY TYPE OF REACTION AFTER HANDLING LATEX PRODUCTS SUCH RUBBER GLOVES, CONDOMS, DIAPHRAGMS, BALLOONS, SOCKS, OR UNDERWEAR?NO LATEX ALLERGY : HAVE YOU EVER DEVELOPED ANY TYPE OF REACTION DURING OR AFTER DENTAL APPOINTMENT, VAGINAL/RECTAL EXAMINATION, SURGICAL PROCEDURE, OR ANY OTHER EXPOSURE?NO DATE ASKED : 11/08/2020 LATEX RISK : HAVE YOU EVER HAD ANY DIFFICULTY BREATHING OR HIVES AFTER EATING OR HANDLING ANY FRUITS, OR VEGETABLES; SUCH KIWI, BANANAS, STONE FRUITS, OR CHESTNUTSNO LATEX RISK : DO YOU HAVE A PREVIOUS PERSONAL HISTORY OF MORE THAN NINE SURGERIES, SPINA BIFIDA, OR REPEATED CATHERIZATIONS? NO LATEX RISK : ARE YOU FREQUENTLY EXPOSED TO LATEX PRODUCTS IN YOUR OCCUPATION?NO ALCOHOL USE: NO. ALCOHOL SCREENING DID YOU HAVE A DRINK CONTAINING ALCOHOL IN THE PAST YEAR?YES HOW OFTEN DID YOU HAVE SIX OR MORE DRINKS ON ONE OCCASION IN THE PAST YEAR?NEVER (0 POINTS) HOW MANY DRINKS DID YOU HAVE ON A TYPICAL DAY WHEN YOU WERE DRINKING IN THE PAST YEAR?1 OR 2 (0 POINTS) HOW OFTEN DID YOU HAVE A DRINK CONTAINING ALCOHOL IN THE PAST YEAR?MONTHLY OR LESS (1 POINT) POINTS1 INTERPRETATIONNEGATIVE RECREATIONAL DRUG USE DRUG USE?NO PATIENT DENIES ABUSE OR MISSUSED OF ANY MEDICATION DENIES PATIENT DENIES USE OF ANY ILLEGAL SUBSTANCE INCLUDING MARIJUANA OR COCAINE DENIES CAFFEINE CAFFEINE USE?YES HOW OFTEN AND HOW MUCH? COFFEE, 4/DAY AMISH AMISH NO MANDAEN BELIEFS THAT WOULD IMPACT HEALTH CARE. 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 EXERCISE: NO REGULAR EXERCISE. MARITAL STATUS: . OTHERS AT HOME: SPOUSE, CHILDREN. - PFS REFERRAL NEEDED?NO CLERGY REFERRAL NEEDED?NO PUBLIC HEALTH REFERRAL NEEDED?NO WAS THE PROVIDER NOTIFIED OF ANY PERTINENT INFO?YES HAS THE PATIENT BEEN EDUCATED REGARDING HIS/HER PLAN OF CARE?YES HAS THE PATIENT BEEN EDUCATED REGARDING PAIN, THE RISK FOR PAIN, THE IMPORTANCE OF EFFECTIVE PAIN MANAGEMENT, AND THE PAIN ASSESSMENT PROCESS?YES HOUSING: OWNS HOME. ADVANCE DIRECTIVE ADVANCE DIRECTIVE DISCUSSED WITH PATIENT:YES PATIENT DOES NOT HAVE ANY ADVANCED DIRECTIVES AND DECLINES INFORMATION ON HCP AT THIS TIME. REVIEW OF SYSTEMS CONSTITUTIONAL: ANY RECENT FEVER NO . CHILLS NO . WEIGHT CHANGE OF UNKNOWN REASONS NO . GASTROENTEROLOGY: NEW UNEXPLAINABLE CHANGES IN BOWEL CONTROL NO . CONSTIPATION NO . GENITOURINARY: ANY NEW CHANGE IN BLADDER CONTROL? NO . NEUROLOGY: NEW ONSET DIZZINESS OR NEUROLOGICAL CHANGES NOT MENTIONED NO . NEW NUMBNESS OR PAIN PATTERNS NOT MENTIONED AND PERTINENT TO TODAY'S VISIT NO . CARDIOLOGY: NEW CHEST PRESSURE NO . PATIENT DENIES NO . RESPIRATORY: UNEXPLAINABLE COUGH NO . NEW SHORTNESS OF BREATH NO . VITAL SIGNS WT 155.2 LBS, HT 62 IN, BMI 28.38 INDEX, BP 125/66 MM HG, HR 79 /MIN, RR 16 /MIN, TEMP 98.5 F, OXYGEN SAT % 95%, SAFE IN ENV? (Y/N) Y, NA INITIALS OH 08:57, REVIEWED BY: EM. EXAMINATION GENERAL EXAMINATION: GENERAL ALERT,NO DISTRESS . PSYCH AFFECT NORMAL . LUNGS: LUNG SOUNDS ARE CLEAR . HEART: HEART RATE REGULAR . MUSCULOSKELETAL: MST 5/5 BILAT. LOWER EXTREMITIES . LUMBAR:PALPATION: + FOR PAIN OVER L/S SPINE. + FOR PAIN OVER L/S PARSPINALS. DIAGNOSTIC TESTS REVIEWEDMRI L/S SPINE-10/2019. ASSESSMENTS PROTRUSION OF INTERVERTEBRAL DISC OF LUMBOSACRAL REGION - M51.27 (PRIMARY) OTHER CHRONIC PAIN - G89.29 TREATMENT PROTRUSION OF INTERVERTEBRAL DISC OF LUMBOSACRAL REGION MEDICATION: VALIUM TAB 5MG ORALLY (DIAZEPAM) (ORDERED FOR 12/01/2020) MED: PAIN NORCO TABLET 5MG/325MG ORALLY HYDROCODONE/ACETAMINOPHEN (ORDERED FOR 12/01/2020) NOTES: LUMBAR EPIDURAL STEROID INJECTION PRINTED, REVIEWED AND GIVEN TO PT. EM. OTHER CHRONIC PAIN PAIN PROCEDURE LOGDATE OF PROCEDURE1PROCEDURE:RIGHT SACROILIAC JOINT BLOCKAMOUNT OF PRE SEDATE0/0RESULT:SOME IMPROVEMENT CONTINUES TODAY PROCEDURE CODES FA211 ESTABILISHED PATIENT [facility] CHARGE DISPOSITION & COMMUNICATION FOLLOW UP SCHEDULE PROCEDURE AFTER 2ND COVID/POST PROCEDURE Stacie VELAZQUEZ (REASON: LUMBAR EPIDURAL STEROID INJECTION/L5/S1) ELECTRONICALLY SIGNED BY ANAYELI MORAN ON 11/24/2020 AT 02:31 PM EDT DISCLAIMER : THIS IS A VISIT SUMMARY EXTRACTED FROM THE [employer] CHART. IT IS NOT A COPY OF THE [employer] PROGRESS NOTE. CARL
== END ==
LOC: M PAIN 09:00
PROVIDERS: ATTEND Nurse Practitioner Family
DX: G89.29 Other chronic pain (principal); M51.27 Other intervertebral disc displacement, lumbosacral region; F90.9 Attention-deficit hyperactivity disorder, unspecified type; F31.9 Bipolar disorder, unspecified; F43.10 Post-traumatic stress disorder, unspecified; E78.1 Pure hyperglyceridemia; F41.9 Anxiety disorder, unspecified; G43.909 Migraine, unspecified, not intractable, without status migrainosus; E78.5 Hyperlipidemia, unspecified; F17.210 Nicotine dependence, cigarettes, uncomplicated; Z79.891 Long term (current) use of opiate analgesic; Z79.899 Other long term (current) drug therapy; Z88.8 Allergy status to other drugs, medicaments and biological substances

== ENCOUNTER → 2021-01-04 | Outpatient (CLI) | payer OTHER | LOC: M LABSMTC 13:20 | PROVIDERS: ATTEND Anesthesiology | DX: Z20.822 Contact with and (suspected) exposure to COVID-19 (principal) ==

== ENCOUNTER → 2021-01-09 | Outpatient (CLI) | payer OTHER ==
[~2021-01-09] MED LIST changes: +ISOVUE-M 300 61% 15ML VIAL As Ordered ONE; +LIDOCAINE 1% SDV 30ML VIAL As Ordered ONE; +NORCO, ANEXSIA 5/325MG TABLET (HYDROcodone/ACETAMINOPHEN) As Ordered ONE; +diazePAM 5MG TABLET As Ordered ONE; +methylPREDNISolone SUSP 40MG/ML 1ML VIAL (DEPO MEDROL) As Ordered ONE
--- NOTE | 2021-01-09 13:15 | REP ---
INDICATION: LUMBAR EPIDURAL STEROID INJECTION. COMPARISON: None. TECHNIQUE: Single C-arm view lower lumbar spine. FINDINGS: A needle is seen at the L4-5 level. A small amount of contrast is injected. IMPRESSION: 15 seconds fluoroscopy time utilized. <Electronically signed by Rashaun Isaacs > 01/09/21 [id number]
--- NOTE | 2021-01-11 04:36 | ECWPNPC ---
PATIENT NAME: JIMENEZ MARIO : 1980 GENDER: FEMALE VISIT DATE: 01/09/2021 DISCHARGE DATE: 01/09/21 1004 VISIT LOCKED DATE TIME: PHYSICIAN: HERBER ASHLEY MD RESOURCE: HERBER ASHLEY MD REASON FOR APPOINTMENT 1. LUMBAR EPIDURAL STEROID INJECTION HISTORY OF PRESENT ILLNESS GENERAL: -. FALL RISK SCREENING: SCREENING : NO FALLS REPORTED IN THE LAST YEAR. PAIN SCREENING: PATIENT HAS A COMPLAINT OF ACUTE OR CHRONIC PAIN :YES LOCATION OF PAIN:LOW BACK, LEG(S) R>L INTENSITY OF PAIN (SCALE OF 1 TO 10):8 WHAT DOES YOUR PAIN FEEL LIKE:ACHING, THROBBING, SORE, SHOOTING, OTHER "LIGHTENING BOLT" DURATION:CONTINOUS, CONSTANT, AWAKENS FROM SLEEP PAIN IS INCREASED BY:ACTIVITIES PAIN IS DECREASED BY:USE OF PAIN MEDICATIONS PLAN/GOALS/TREATMENT/INTERVENTION/FOLLOW UP:SEE PLAN NURSING NOTE: -. PAIN CENTER INTAKE QUESTIONS: DO YOU HAVE A HISTORY OF MRSA? :NO DO YOU TAKE A BLOOD THINNERS? :NO DO YOU HAVE ANY BLEEDING DISORDERS? :NO ANY NEW NUMBNESS OR WEAKNESS IN YOUR LEGS OR ARMS? :NO ANY PACEMAKER,DEFIBRILLATOR, OR DORSAL COLUMN STIMULATOR? :NO DO YOU HAVE ANY RASHES OR OPEN SORES? :NO ARE YOU ALLERGIC TO IV DYE? :NO ARE YOU DIABETIC? :NO ANY NEW PROBLEMS WITH YOUR MEDICATIONS? :NO HAVE YOU RECEIVED A VACCINE IN THE PAST 30 DAYS? :YES IF SO WHAT VACCINE AND WHEN? 12/24/20 2ND COVID VACCINE DO YOU PLAN TO RECEIVE A VACCINE IN THE NEXT 21 DAYS? :NO DO YOU TAKE ANY IMMUNOSUPPRESSIVE MEDICATIONS? :NO ANY HISTORY OF SEIZURES? :NO ANY HISTORY OF CARDIAC ISSUES OR EVENTS? :NO DO YOU HAVE ANY KIDNEY OR LIVER DISEASE? :NO DO YOU HAVE SLEEP APNEA? :NO ANY RECENT HEAD INJURY? :NO DO YOU HAVE ANY NEW INFECTIONS? :NO IS THERE A CHANCE YOU COULD BE ? :NO ARE YOU BREAST FEEDING? :NO WHEN DID YOU LAST EAT? : 01/08/21 1800 WHEN DID YOU LAST DRINK? : 0500 WHAT DID YOU LAST DRINK? : WATER NAME OF PERSON DRIVING YOU HOME? : (MICHAEL) DO YOU HAVE ANY OTHER QUESTIONS OR CONCERNS? : NO CURRENT MEDICATIONS TAKING ATORVASTATIN CALCIUM 80 MG TABLET 1 TABLET ORALLY ONCE A DAY TAKING SUMATRIPTAN SUCCINATE 100 MG TABLET 1 TABLET AT LEAST 2 HOURS BETWEEN DOSES NEEDED ORALLY ONE TABLET DIRECTED FOR MIGRAINES AND REPEAT IN 2 HOURS MDD 2 TAKING VITAMIN D3 25 MCG (1000 UT) CAPSULE 1 CAPSULE ORALLY 2000 UNITS BY MOUTH DAILY TAKING CLONAZEPAM 0.5 MG TABLET TAKE UP TO 3 TABS BEFORE BEDTIME ORALLY ONCE A DAY, NOTES: 01/08/212029 TAKING GEMFIBROZIL 600 MG TABLET 1 TABLET 30 MINUTES BEFORE MORNING MEAL ORALLY DAILY TAKING HYDROXYZINE HCL 50 MG TABLET DIRECTED ORALLY THREE TIMES DAILY NEEDED HOLD IF DROWSY TAKING OXCARBAZEPINE 600 MG TABLET 1 TABLET ORALLY TWICE A DAY, NOTES: 0530 TAKING HYDROCODONE-ACETAMINOPHEN 7.5-325 MG TABLET 1 TABLET NEEDED ORALLY BID AND AT HS NEEDED MDD3, NOTES: 01/08/212029 TAKING ADDERALL XR 20 MG CAPSULE EXTENDED RELEASE 24 HOUR 1 CAPSULE IN THE MORNING ORALLY ONCE A DAY, NOTES: 05 TAKING LURASIDONE HCL 80 MG TABLET 1 TABLET ORALLY ONCE A DAY TAKING GABAPENTIN 300 MG TABLET 4 CAPSULE ORALLY BEFORE BEDTIME, NOTES: 01/08/212029 TAKING TIZANIDINE HCL 4 MG TABLET 1 TABLET NEEDED ORALLY THREE TIMES A DAY, NOTES: 01/08/212029 TAKING PRILOSEC OTC 20 MG TABLET DELAYED RELEASE 2 TABLET 30 MINUTES BEFORE MORNING MEAL ORALLY ONCE A DAY TAKING ZOFRAN 8 MG TABLET 1 TABLET NEEDED ORALLY ONCE A DAY NOT-TAKING WELLBUTRIN XL 150 MG TABLET EXTENDED RELEASE 24 HOUR 1 TABLET ORALLY BID NOT-TAKING CARISOPRODOL 350 MG TABLET 1 TABLET NEEDED ORALLY FOR SPASMS AND PAIN EVERY 12 HOURS NEEDED MDD2 NOT-TAKING NICOTINE STEP 1 21 MG/24HR PATCH 24 HOUR 1 PATCH TO SKIN TRANSDERMAL ONCE A DAY MEDICATION LIST REVIEWED AND RECONCILED WITH THE PATIENT PAST MEDICAL HISTORY ADHD BIPOLAR PTSD SEVERE CHRONIC LOWER BACK PAIN 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 SEVERE ANXIETY MIGRAINES DYSLIPIDEMIA ARTHRITIS 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 PLEURISY IN RIGHT LUNG ENLARGED LYMPH NODE IN RIGHT UPPER QUADRANT ALLERGIES NIACIN: SEVERE RASH AND DYSPNEA - ALLERGY SOCIAL HISTORY GENERAL: TOBACCO USE ARE YOU A:CURRENT SMOKER ARE YOU INTERESTED IN QUITTING?READY TO QUIT COUNSELED THE PATIENT ON TOBACCO USE, CESSATION NBWNVOTH00/07/2021 HOW MANY CIGARETTES A DAY DO YOU SMOKE?5 OR LESS HOW SOON AFTER YOU WAKE UP DO YOU SMOKE YOUR FIRST CIGARETTE?6-30 MIN HOW OFTEN DO YOU SMOKE CIGARETTES?EVERY DAY PATIENT COUNSELED ON THE DANGERS OF TOBACCO USE AND URGED TO QUIT:01/06/2021 VAPORNO E-CIGARETTENO LATEX QUESTIONNAIRE LATEX ALLERGY : HAVE YOU EVER DEVELOPED ANY TYPE OF REACTION AFTER HANDLING LATEX PRODUCTS SUCH RUBBER GLOVES, CONDOMS, DIAPHRAGMS, BALLOONS, SOCKS, OR UNDERWEAR?NO LATEX ALLERGY : HAVE YOU EVER DEVELOPED ANY TYPE OF REACTION DURING OR AFTER DENTAL APPOINTMENT, VAGINAL/RECTAL EXAMINATION, SURGICAL PROCEDURE, OR ANY OTHER EXPOSURE?NO LATEX RISK : HAVE YOU EVER HAD ANY DIFFICULTY BREATHING OR HIVES AFTER EATING OR HANDLING ANY FRUITS, OR VEGETABLES; SUCH KIWI, BANANAS, STONE FRUITS, OR CHESTNUTSNO LATEX RISK : DO YOU HAVE A PREVIOUS PERSONAL HISTORY OF MORE THAN NINE SURGERIES, SPINA BIFIDA, OR REPEATED CATHERIZATIONS? NO LATEX RISK : ARE YOU FREQUENTLY EXPOSED TO LATEX PRODUCTS IN YOUR OCCUPATION?NO DATE ASKED : 01/06/2021 ALCOHOL USE: NO. ALCOHOL SCREENING DID YOU HAVE A DRINK CONTAINING ALCOHOL IN THE PAST YEAR?YES HOW OFTEN DID YOU HAVE SIX OR MORE DRINKS ON ONE OCCASION IN THE PAST YEAR?NEVER (0 POINTS) HOW MANY DRINKS DID YOU HAVE ON A TYPICAL DAY WHEN YOU WERE DRINKING IN THE PAST YEAR?1 OR 2 (0 POINTS) HOW OFTEN DID YOU HAVE A DRINK CONTAINING ALCOHOL IN THE PAST YEAR?MONTHLY OR LESS (1 POINT) POINTS1 INTERPRETATIONNEGATIVE RECREATIONAL DRUG USE DRUG USE?NO PATIENT DENIES ABUSE OR MISSUSED OF ANY MEDICATION DENIES PATIENT DENIES USE OF ANY ILLEGAL SUBSTANCE INCLUDING MARIJUANA OR COCAINE DENIES CAFFEINE CAFFEINE USE?YES HOW OFTEN AND HOW MUCH? COFFEE, 4/DAY EPISCOPALIAN EPISCOPALIAN NO MORMON BELIEFS THAT WOULD IMPACT HEALTH CARE. 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 EXERCISE: NO REGULAR EXERCISE. MARITAL STATUS: . OTHERS AT HOME: SPOUSE, CHILDREN. - PFS REFERRAL NEEDED?NO CLERGY REFERRAL NEEDED?NO PUBLIC HEALTH REFERRAL NEEDED?NO WAS THE PROVIDER NOTIFIED OF ANY PERTINENT INFO?YES HAS THE PATIENT BEEN EDUCATED REGARDING HIS/HER PLAN OF CARE?YES HAS THE PATIENT BEEN EDUCATED REGARDING PAIN, THE RISK FOR PAIN, THE IMPORTANCE OF EFFECTIVE PAIN MANAGEMENT, AND THE PAIN ASSESSMENT PROCESS?YES HOUSING: OWNS HOME. ADVANCE DIRECTIVE ADVANCE DIRECTIVE DISCUSSED WITH PATIENT:YES PATIENT DOES NOT HAVE ANY ADVANCED DIRECTIVES AND DECLINES INFORMATION ON HCP AT THIS TIME. VITAL SIGNS WT 157.4 LBS, HT 62 IN, BMI 28.79 INDEX, BP 131/79 MM HG, HR 78 /MIN, RR 16 /MIN, TEMP 97.4 F, OXYGEN SAT % 96%, SAFE IN ENV? (Y/N) YES, NA INITIALS SC 08:34, REVIEWED BY: ROSHNI. EXAMINATION GENERAL: THE PATIENT IS ALERT, ORIENTED TIMES THREE AND COOPERATIVE. LUNGS ARE CLEAR TO AUSCULTATION. HEART SHOWS REGULAR RHYTHM, NO MURMURS AND NO GALLOPS. ASSESSMENTS PROTRUSION OF INTERVERTEBRAL DISC OF LUMBOSACRAL REGION - M51.27 (PRIMARY) TREATMENT PROTRUSION OF INTERVERTEBRAL DISC OF LUMBOSACRAL REGION [facility] FLUORO GUIDE SPINE INJECTION (PAIN)[id number] COMPLETION OF PROCEDURAL VISIT WHEN MEETS CRITERIACRUZITO BURT 01/09/2021 9:57:07 AM > CRITERIA MET. MEDICATION: VALIUM TAB 5MG ORALLY (DIAZEPAM)RICHARDSHAHRIAR LOPEZ 01/09/2021 8:35:12 AM > VERIFIED CRUZITO BURT 01/09/2021 8:39:51 AM > ADMINISTERED. MED: PAIN NORCO TABLET 5MG/325MG ORALLY HYDROCODONE/ACETAMINOPHENMONICA,SHAHRIAR 01/09/2021 8:35:29 AM > VERIFIED CRUZITO BURT 01/09/2021 8:40:12 AM > ADMINISTERED. OTHERS NOTES: 01/06/21 1200 PAT COMPLETED. Pablo KNOX TREASURER. PROCEDURES PAIN NURSING RECORD PROCEDURE IN ROOM 0915, PHYSICIAN IN ROOM 0930, START 0934, FINISH 0941, PHYSICIAN OUT OF ROOM 0944, OUT OF ROOM 0950, ECG NORMAL SINUS, PATIENT SHIELDED YES, SAFETY STRAP YES, PREP BETADINE Sabrina BURT RN, DRESSING TEGADERM DR. ASHLEY LOC: CRUZITO BURT 01/09/2021 9:35:03 AM > , 1. ALERT, ORIENTED RESP: CRUZITO BURT 01/09/2021 9:35:07 AM > , 1. REGULAR, NO DYSPNEA COLOR: CRUZITO BURT 01/09/2021 9:35:10 AM > , 1. PINK SKIN: CRUZITO BURT 01/09/2021 9:35:13 AM > , 1. WARM, DRY POSITION: CRUZITO BURT 01/09/2021 9:35:19 AM > , 1. PRONE VITALS: CRUZITO BURT 01/09/2021 9:18:29 AM > 123/75, 71, 16, 94% CRUZITO BURT 01/09/2021 9:29:05 AM > 127/78, 70, 16, 93% CRUZITO BURT 01/09/2021 9:45:41 AM > 153/82, 72, 16, 93% CRUZITO BURT 01/09/2021 9:56:28 AM > 129/65, 78, 16, 95% COMPLETION OF PROCEDURE APPOINTMENT: POST PAIN 6, DRESSING SITE DRY AND INTACT, IV N/A, GAIT STEADY, TEACHING COMPLETED, PATIENT ACKNOWLEDGES UNDERSTANDING YES, PROCEDURE APPOINTMENT COMPLETED AT 1000 BY: Sabrina BURT RN PRE PROCEDURE DIAGNOSIS LUMBOSACRAL DISC DISORDER WITH RADICULOPATHY POST PROCEDURE DIAGNOSIS LUMBOSACRAL DISC DISORDER WITH RADICULOPATHY PROCEDURE LUMBAR EPIDURAL STEROID INJECTION UNDER FLUOROSCOPIC GUIDANCE SURGEON DR. HERBER ASHLEY REFRACTORY BRICKLAYER NONE ANESTHESIA LOCAL PRE PROCEDURE NOTE THE PATIENT HAS A HISTORY OF CHRONIC LOW BACK PAIN. I EVALUATED THE PATIENT AND REVIEWED THE CHART. I WENT OVER THE RISKS, ALTERNATIVES, AND BENEFITS ASSOCIATED WITH THIS PROCEDURE. THE PATIENT WOULD LIKE TO PROCEED AND GIVE CONSENT TO PERFORMED THE PROCEDURE. THE PATIENT DENIES UNEXPLAINABLE WEIGHT LOSS, FEVER, CHILLS, OR NEW CHANGES IN URINARY OR BOWEL CONTROL. THE PATIENT IS COVID-19 NEGATIVE DESCRIPTION OF PROCEDURE THE PATIENT WAS BROUGHT TO THE PROCEDURE ROOM AND PLACED IN THE PRONE POSITION. THE LUMBOSACRAL AREA WAS CLEANED WITH BETADINE SOLUTION AND DRAPED ASEPTICALLY. THE PROCEDURE WAS DONE UNDER STERILE CONDITIONS. A TIMEOUT WAS PERFORMED WHERE THE CONSENTED SITE WAS VERIFIED WITH EVERYONE IN THE ROOM. UNDER FLUOROSCOPIC GUIDANCE, THE TARGET POINT WAS SELECTED AT THE INTERLAMINAR LEVEL OF L5-S1. I CONFIRMED AGAIN THE SITE OF TARGET. LIDOCAINE WAS USED TO NUMB THE SKIN AND THE SUBCUTANEOUS TISSUE BELOW IT. EPIDURAL TUOHY NEEDLE, 17-GAUGE, WAS ADVANCED UNDER FLUOROSCOPIC GUIDANCE AND FOLLOWING PATIENT FEEDBACK UNTIL THE EPIDURAL SPACE WAS REACHED 8 CM DEEP INTO THE SKIN BY THE LOSS OF RESISTANCE TECHNIQUE. ISOVUE-M DYE 30%, 0.25 ML, WAS INJECTED SHOWING ADEQUATE SPREAD OF THE DYE. THEN, A SOLUTION OF 3 ML OF NORMAL SALINE WITH DEPO-MEDROL 40 MG WAS INJECTED SLOWLY FOLLOWING PATIENT FEEDBACK. THE MEDICATIONS WERE VERIFIED WITH THE NURSE. THERE WAS NO EVIDENCE OF BLOOD, PARESTHESIA OR CEREBROSPINAL FLUID DURING THE PROCEDURE. THE PATIENT WAS SENT TO THE RECOVERY ROOM. THE PATIENT WAS MOVING THE EXTREMITIES AND DOING WELL. THERE WERE NO COMPLICATIONS DURING THE PROCEDURE. ESTIMATED BLOOD LOSS WAS LESS THAN 5 ML. FLUOROSCOPY TIME WAS 14 SECONDS POST PROCEDURE NOTE DEPENDING ON THE RESULTS, CONSIDER A RIGHT TRANSFORAMINAL L4-L5, L5-S1. THE PATIENT WILL BE SEEN IN A FOLLOW UP IN THE NEXT FEW WEEKS. I AM LOOKING FOR LONG LASTING RELIEF FOR THE PATIENT WITH THIS INTERVENTION. INSTRUCTIONS WERE GIVEN, QUESTIONS WERE ANSWERED, AND THE PATIENT EXPRESSED UNDERSTANDING AND AGREES WITH THE PLAN. I, KATHYA DAVIS, DOCUMENTED THE ABOVE INFORMATION ACTING A SCRIBE FOR DR. ASHLEY. I HAVE REVIEWED THE ABOVE DOCUMENT, WRITTEN BY KATHYA DAVIS, AREA DEVELOPMENT MANAGER, AND I VERIFY THAT IT IS ACCURATE PROCEDURE CODES 83708 LUMBAR/SACRAL W/ IMAGING DISPOSITION & COMMUNICATION FOLLOW UP FOLLOW UP WITH TRIMMING INSPECTOR (REASON: POST LUMBAR EPIDURAL STEROID INJECTION) ELECTRONICALLY SIGNED BY HERBER ASHLEY MD, MD ON 01/10/2021 AT 05:22 PM EDT DISCLAIMER : THIS IS A VISIT SUMMARY EXTRACTED FROM THE [employer] CHART. IT IS NOT A COPY OF THE [employer] PROGRESS NOTE. MTDEstevan
== END ==
LOC: M PAIN 08:30
PROVIDERS: ATTEND Anesthesiology
DX: M51.27 Other intervertebral disc displacement, lumbosacral region (principal); G43.909 Migraine, unspecified, not intractable, without status migrainosus; F17.210 Nicotine dependence, cigarettes, uncomplicated; Z86.59 Personal history of other mental and behavioral disorders; Z88.8 Allergy status to other drugs, medicaments and biological substances; Z79.899 Other long term (current) drug therapy
CPT/HCPCS: 62323; J1030; Q9967

== ENCOUNTER → 2021-02-10 | Outpatient (CLI) | payer OTHER ==
[~2021-02-10] MED LIST changes: -ISOVUE-M 300 61% 15ML VIAL As Ordered ONE; -LIDOCAINE 1% SDV 30ML VIAL As Ordered ONE; -NORCO, ANEXSIA 5/325MG TABLET (HYDROcodone/ACETAMINOPHEN) As Ordered ONE; -diazePAM 5MG TABLET As Ordered ONE; -methylPREDNISolone SUSP 40MG/ML 1ML VIAL (DEPO MEDROL) As Ordered ONE
--- NOTE | 2021-02-16 01:08 | ECWPNPC ---
PATIENT NAME: JIMENEZ MARIO : 1980 GENDER: FEMALE VISIT DATE: 02/10/2021 DISCHARGE DATE: 02/10/21 1045 VISIT LOCKED DATE TIME: PHYSICIAN: CAROLINE HICKMAN RESOURCE: CAROLINE HICKMAN REASON FOR APPOINTMENT 1. POST LUMBAR EPIDURAL STEROID INJECTION L5-S1 HISTORY OF PRESENT ILLNESS GENERAL: HERE FOR POST PROCEDURE FOLLOW-UP. HAD LUMBAR EPIDURAL STEROID INJECTION ON 01/09/2021. REPORTING MARKED IMPROVEMENT FOR 4 DAYS POSTPROCEDURE THEN PAIN RETURNED ABRUPTLY TO BASELINE. PAIN IS LOCATED IN THE RIGHT LOW BACK AND TRAVELS DOWN THE RIGHT LEG. SHE IS VERY UNCOMFORTABLE TODAY. REVIEWED DR. ASHLEY'S PROCEDURE NOTE AND HE'S RECOMMENDING A RIGHT TRANSFORAMINAL INJECTION. POTENTIAL RISKS ASSOCIATED WITH THIS APPROACH REVIEWED AND PATIENT UNDERSTANDS AND WOULD LIKE TO PROCEED. -. FALL RISK SCREENING: SCREENING : NO FALLS REPORTED IN THE LAST YEAR. PAIN SCREENING: PATIENT HAS A COMPLAINT OF ACUTE OR CHRONIC PAIN :YES LOCATION OF PAIN:LOW BACK INTENSITY OF PAIN (SCALE OF 1 TO 10):6 WHAT DOES YOUR PAIN FEEL LIKE:ACHING, TENDER, THROBBING, SORE, SHOOTING DURATION:CONTINOUS, CONSTANT, ALL DAY PAIN IS INCREASED BY:ACTIVITIES, PROLONGED STANDING PAIN IS DECREASED BY:USE OF PAIN MEDICATIONS NURSING NOTE: -. PAIN CENTER INTAKE QUESTIONS: DO YOU HAVE A HISTORY OF MRSA? :NO DO YOU TAKE A BLOOD THINNERS? :NO DO YOU HAVE ANY BLEEDING DISORDERS? :NO ANY NEW NUMBNESS OR WEAKNESS IN YOUR LEGS OR ARMS? :YES NUMBNESS AND TINGLING TO RIGHT FOOT ANY PACEMAKER,DEFIBRILLATOR, OR DORSAL COLUMN STIMULATOR? :NO DO YOU HAVE ANY RASHES OR OPEN SORES? :NO ARE YOU ALLERGIC TO IV DYE? :NO ARE YOU DIABETIC? :NO ANY NEW PROBLEMS WITH YOUR MEDICATIONS? :NO HAVE YOU RECEIVED A VACCINE IN THE PAST 30 DAYS? :NO 1ST COVID : 11/23/20 2ND COVID 12/24/2020 DO YOU PLAN TO RECEIVE A VACCINE IN THE NEXT 21 DAYS? :YES IF SO WHAT VACCINE AND WHEN? COVID # 1 11/26/20 DO YOU NEED ANY PRESCRIPTION? :NO DO YOU TAKE ANY IMMUNOSUPPRESSIVE MEDICATIONS? :NO DO YOU HAVE ANY KIDNEY OR LIVER DISEASE? :NO IS THERE A CHANCE YOU COULD BE ? :NO ARE YOU BREAST FEEDING? :NO CURRENT MEDICATIONS TAKING ATORVASTATIN CALCIUM 80 MG TABLET 1 TABLET ORALLY ONCE A DAY TAKING SUMATRIPTAN SUCCINATE 100 MG TABLET 1 TABLET AT LEAST 2 HOURS BETWEEN DOSES NEEDED ORALLY ONE TABLET DIRECTED FOR MIGRAINES AND REPEAT IN 2 HOURS MDD 2 TAKING VITAMIN D3 25 MCG (1000 UT) CAPSULE 1 CAPSULE ORALLY 2000 UNITS BY MOUTH DAILY TAKING CLONAZEPAM 0.5 MG TABLET TAKE UP TO 3 TABS BEFORE BEDTIME ORALLY ONCE A DAY TAKING GEMFIBROZIL 600 MG TABLET 1 TABLET 30 MINUTES BEFORE MORNING MEAL ORALLY DAILY TAKING HYDROXYZINE HCL 50 MG TABLET DIRECTED ORALLY THREE TIMES DAILY NEEDED HOLD IF DROWSY TAKING OXCARBAZEPINE 600 MG TABLET 1 TABLET ORALLY TWICE A DAY TAKING HYDROCODONE-ACETAMINOPHEN 7.5-325 MG TABLET 1 TABLET NEEDED ORALLY BID AND AT HS NEEDED MDD3 TAKING ADDERALL XR 20 MG CAPSULE EXTENDED RELEASE 24 HOUR 1 CAPSULE IN THE MORNING ORALLY ONCE A DAY TAKING LURASIDONE HCL 80 MG TABLET 1 TABLET ORALLY ONCE A DAY TAKING GABAPENTIN 300 MG TABLET 4 CAPSULE ORALLY BEFORE BEDTIME TAKING TIZANIDINE HCL 4 MG TABLET 1 TABLET NEEDED ORALLY THREE TIMES A DAY TAKING PRILOSEC OTC 20 MG TABLET DELAYED RELEASE 2 TABLET 30 MINUTES BEFORE MORNING MEAL ORALLY ONCE A DAY TAKING ZOFRAN 8 MG TABLET 1 TABLET NEEDED ORALLY ONCE A DAY NOT-TAKING WELLBUTRIN XL 150 MG TABLET EXTENDED RELEASE 24 HOUR 1 TABLET ORALLY BID NOT-TAKING CARISOPRODOL 350 MG TABLET 1 TABLET NEEDED ORALLY FOR SPASMS AND PAIN EVERY 12 HOURS NEEDED MDD2 NOT-TAKING NICOTINE STEP 1 21 MG/24HR PATCH 24 HOUR 1 PATCH TO SKIN TRANSDERMAL ONCE A DAY MEDICATION LIST REVIEWED AND RECONCILED WITH THE PATIENT PAST MEDICAL HISTORY ADHD BIPOLAR PTSD SEVERE CHRONIC LOWER BACK PAIN 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 SEVERE ANXIETY MIGRAINES DYSLIPIDEMIA ARTHRITIS 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 PLEURISY IN RIGHT LUNG ENLARGED LYMPH NODE IN RIGHT UPPER QUADRANT ALLERGIES NIACIN: SEVERE RASH AND DYSPNEA - ALLERGY SOCIAL HISTORY GENERAL: TOBACCO USE ARE YOU A:CURRENT SMOKER ARE YOU INTERESTED IN QUITTING?THINKING ABOUT QUITTING COUNSELED THE PATIENT ON SMOKING CESSATION, EDUCATION [id number]/11/2021 HOW MANY CIGARETTES A DAY DO YOU SMOKE?5 OR LESS HOW SOON AFTER YOU WAKE UP DO YOU SMOKE YOUR FIRST CIGARETTE?6-30 MIN HOW OFTEN DO YOU SMOKE CIGARETTES?EVERY DAY PATIENT COUNSELED ON THE DANGERS OF TOBACCO USE AND URGED TO QUIT:01/06/2021 VAPORNO E-CIGARETTENO LATEX QUESTIONNAIRE LATEX ALLERGY : HAVE YOU EVER DEVELOPED ANY TYPE OF REACTION AFTER HANDLING LATEX PRODUCTS SUCH RUBBER GLOVES, CONDOMS, DIAPHRAGMS, BALLOONS, SOCKS, OR UNDERWEAR?NO LATEX ALLERGY : HAVE YOU EVER DEVELOPED ANY TYPE OF REACTION DURING OR AFTER DENTAL APPOINTMENT, VAGINAL/RECTAL EXAMINATION, SURGICAL PROCEDURE, OR ANY OTHER EXPOSURE?NO LATEX RISK : HAVE YOU EVER HAD ANY DIFFICULTY BREATHING OR HIVES AFTER EATING OR HANDLING ANY FRUITS, OR VEGETABLES; SUCH KIWI, BANANAS, STONE FRUITS, OR CHESTNUTSNO LATEX RISK : DO YOU HAVE A PREVIOUS PERSONAL HISTORY OF MORE THAN NINE SURGERIES, SPINA BIFIDA, OR REPEATED CATHERIZATIONS? NO LATEX RISK : ARE YOU FREQUENTLY EXPOSED TO LATEX PRODUCTS IN YOUR OCCUPATION?NO DATE ASKED : 02/10/2021 ALCOHOL USE: NO. ALCOHOL SCREENING DID YOU HAVE A DRINK CONTAINING ALCOHOL IN THE PAST YEAR?YES HOW OFTEN DID YOU HAVE SIX OR MORE DRINKS ON ONE OCCASION IN THE PAST YEAR?NEVER (0 POINTS) HOW MANY DRINKS DID YOU HAVE ON A TYPICAL DAY WHEN YOU WERE DRINKING IN THE PAST YEAR?1 OR 2 (0 POINTS) HOW OFTEN DID YOU HAVE A DRINK CONTAINING ALCOHOL IN THE PAST YEAR?MONTHLY OR LESS (1 POINT) POINTS1 INTERPRETATIONNEGATIVE RECREATIONAL DRUG USE DRUG USE?NO PATIENT DENIES ABUSE OR MISSUSED OF ANY MEDICATION DENIES PATIENT DENIES USE OF ANY ILLEGAL SUBSTANCE INCLUDING MARIJUANA OR COCAINE DENIES CAFFEINE CAFFEINE USE?YES HOW OFTEN AND HOW MUCH? COFFEE, 4/DAY HINDUISM HINDUISM NO JAINISM BELIEFS THAT WOULD IMPACT HEALTH CARE. 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 EXERCISE: NO REGULAR EXERCISE. MARITAL STATUS: . OTHERS AT HOME: SPOUSE, CHILDREN. - PFS REFERRAL NEEDED?NO CLERGY REFERRAL NEEDED?NO PUBLIC HEALTH REFERRAL NEEDED?NO WAS THE PROVIDER NOTIFIED OF ANY PERTINENT INFO?YES HAS THE PATIENT BEEN EDUCATED REGARDING HIS/HER PLAN OF CARE?YES HAS THE PATIENT BEEN EDUCATED REGARDING PAIN, THE RISK FOR PAIN, THE IMPORTANCE OF EFFECTIVE PAIN MANAGEMENT, AND THE PAIN ASSESSMENT PROCESS?YES HOUSING: OWNS HOME. ADVANCE DIRECTIVE ADVANCE DIRECTIVE DISCUSSED WITH PATIENT:YES PATIENT DOES NOT HAVE ANY ADVANCED DIRECTIVES AND DECLINES INFORMATION ON HCP AT THIS TIME. REVIEW OF SYSTEMS CONSTITUTIONAL: ANY RECENT FEVER NO . CHILLS NO . WEIGHT CHANGE OF UNKNOWN REASONS NO . GASTROENTEROLOGY: NEW UNEXPLAINABLE CHANGES IN BOWEL CONTROL NO . CONSTIPATION NO . GENITOURINARY: ANY NEW CHANGE IN BLADDER CONTROL? NO . NEUROLOGY: NEW ONSET DIZZINESS OR NEUROLOGICAL CHANGES NOT MENTIONED NO . NEW NUMBNESS OR PAIN PATTERNS NOT MENTIONED AND PERTINENT TO TODAY'S VISIT NO . CARDIOLOGY: NEW CHEST PRESSURE NO . PATIENT DENIES NO . RESPIRATORY: UNEXPLAINABLE COUGH NO . NEW SHORTNESS OF BREATH NO . VITAL SIGNS WT 160.0 LBS, HT 62 IN, BMI 29.26 INDEX, BP 143/63 MM HG, REPEAT BP 126/75 MM HG, HR 87 /MIN, RR 18 /MIN, TEMP 98.4 F, OXYGEN SAT % 96%, SAFE IN ENV? (Y/N) YES, NA INITIALS AW 0955T.KRISTY ROB. EXAMINATION GENERAL EXAMINATION: GENERAL ALERT,NO DISTRESS . PSYCH AFFECT NORMAL . LUNGS: LUNG SOUNDS ARE CLEAR . HEART: HEART RATE REGULAR . MUSCULOSKELETAL: MST 5/5 BILAT. LOWER EXTREMITIES . LUMBAR:PALPATION: + FOR PAIN OVER L/S SPINE. + FOR PAIN OVER L/S PARSPINALS. DIAGNOSTIC TESTS REVIEWEDMRI L/S SPINE-10/2019. ASSESSMENTS PROTRUSION OF INTERVERTEBRAL DISC OF LUMBOSACRAL REGION - M51.27 (PRIMARY) OTHER CHRONIC PAIN - G89.29 TREATMENT PROTRUSION OF INTERVERTEBRAL DISC OF LUMBOSACRAL REGION MEDICATION: VALIUM TAB 10MG ORALLY (DIAZEPAM) (ORDERED FOR 02/24/2021) MEDICATION: OXYCODONE HCL TAB 10MG ORALLY (ORDERED FOR 02/24/2021) NOTES: RIGHT TRANSFORAMINAL EPIDURAL STEROID INJECTION L4-L5, L5-S1. CLINICAL NOTES: PREPROCEDURE AND PROCEDURE INFORMATION PRINTED AND PROVIDED TO PATIENT. PATIENT VERBALIZED AN UNDERSTANDING. ROMIE MCNAIR MA. OTHER CHRONIC PAIN PAIN PROCEDURE LOGDATE OF PROCEDURE1PROCEDURE:LUMBAR EPIDURAL STEROID INJECTIONAMOUNT OF PRE SEDATEVALIUM 5MG, NORCO 5-325MGRESULT:IMPROVEMENT IN PAIN 4 DAYS THEN PAIN ABRUPTLY RETURNED PROCEDURE CODES FA211 ESTABILISHED PATIENT [facility] FACILITY CHARGE DISPOSITION & COMMUNICATION FOLLOW UP POST (REASON: RIGHT TRANSFORAMINAL EPIDURAL STEROID INJECTION L4-L5, L5-S1) ELECTRONICALLY SIGNED BY ANAYELI MORAN ON 02/15/2021 AT 08:48 AM EDT DISCLAIMER : THIS IS A VISIT SUMMARY EXTRACTED FROM THE [employer] CHART. IT IS NOT A COPY OF THE [employer] PROGRESS NOTE. CARL
== END ==
LOC: M PAIN 10:00
PROVIDERS: ATTEND Nurse Practitioner Family
DX: G89.29 Other chronic pain (principal); M51.27 Other intervertebral disc displacement, lumbosacral region; F31.9 Bipolar disorder, unspecified; F43.10 Post-traumatic stress disorder, unspecified; F41.9 Anxiety disorder, unspecified; G43.909 Migraine, unspecified, not intractable, without status migrainosus; E78.5 Hyperlipidemia, unspecified; F17.210 Nicotine dependence, cigarettes, uncomplicated; Z79.891 Long term (current) use of opiate analgesic; Z79.899 Other long term (current) drug therapy; Z88.8 Allergy status to other drugs, medicaments and biological substances

== ENCOUNTER → 2021-03-09 | Outpatient (CLI) | payer OTHER | LOC: M LABSMTC 09:45 | PROVIDERS: ATTEND Anesthesiology | DX: Z11.52 Encounter for screening for COVID-19 (principal) ==

== ENCOUNTER → 2021-03-14 | Outpatient (CLI) | payer OTHER ==
[~2021-03-14] MED LIST changes: +BUPIVACAINE HCL 0.25% 30ML VIAL As Ordered ONE; +ISOVUE-M 300 61% 15ML VIAL As Ordered ONE; +LIDOCAINE 1% SDV 30ML VIAL As Ordered ONE; +NORCO, ANEXSIA 5/325MG TABLET (HYDROcodone/ACETAMINOPHEN) As Ordered ONE; +ONDANSETRON 4 MG ORAL DISINTEGRATING TAB As Ordered ONE; +dexameTHASONE 10MG/1ML VIAL PRES.FREE (J1100 PER 1MG) As Ordered ONE; +diazePAM 5MG TABLET As Ordered ONE; +oxyCODONE 5MG TAB As Ordered ONE
--- NOTE | 2021-03-14 16:22 | REP ---
INDICATION: RIGHT TRANSFORAMINAL EPIDURAL STEROID INJECTION. COMPARISON: None TECHNIQUE: Nine views. Fifty-eight seconds of fluoroscopy time is reported. FINDINGS: A sequence of 9 last image hold fluoroscopically obtained spot radiograph(s) of the lumbar spine document(s) needle position(s) and contrast injection associated with injection procedure. IMPRESSION: Procedural imaging. <Electronically signed by Franko Sequeira > 03/14/21 [id number]
--- NOTE | 2021-04-05 02:08 | ECWPNPC ---
PATIENT NAME: JIMENEZ MARIO : 1980 GENDER: FEMALE VISIT DATE: 03/14/2021 DISCHARGE DATE: 03/14/21 172 VISIT LOCKED DATE TIME: PHYSICIAN: HERBER ASHLEY MD RESOURCE: HERBER ASHLEY MD REASON FOR APPOINTMENT 1. RIGHT TRANSFORAMINAL EPIDURAL STEROID INJECTION L4-L5, L5-S1 HISTORY OF PRESENT ILLNESS GENERAL: -. FALL RISK SCREENING: SCREENING : NO FALLS REPORTED IN THE LAST YEAR. PAIN SCREENING: PATIENT HAS A COMPLAINT OF ACUTE OR CHRONIC PAIN :YES LOCATION OF PAIN:MID BACK RIGHT SIDE & BUTTOCK INTENSITY OF PAIN (SCALE OF 1 TO 10):9 WHAT DOES YOUR PAIN FEEL LIKE:SHOOTING DURATION:CONTINOUS, CONSTANT, STEADY, AWAKENS FROM SLEEP PAIN IS INCREASED BY:ACTIVITIES, PROLONGED STANDING LIFTING, WALKING PAIN IS DECREASED BY:USE OF PAIN MEDICATIONS NURSING NOTE: -. PAIN CENTER INTAKE QUESTIONS: DO YOU HAVE A HISTORY OF MRSA? :NO DO YOU TAKE A BLOOD THINNERS? :NO DO YOU HAVE ANY BLEEDING DISORDERS? :NO ANY NEW NUMBNESS OR WEAKNESS IN YOUR LEGS OR ARMS? :NO ANY PACEMAKER,DEFIBRILLATOR, OR DORSAL COLUMN STIMULATOR? :NO DO YOU HAVE ANY RASHES OR OPEN SORES? :NO ARE YOU ALLERGIC TO IV DYE? :NO ARE YOU DIABETIC? :NO ANY NEW PROBLEMS WITH YOUR MEDICATIONS? :NO HAVE YOU RECEIVED A VACCINE IN THE PAST 30 DAYS? :NO DO YOU PLAN TO RECEIVE A VACCINE IN THE NEXT 21 DAYS? :NO DO YOU TAKE ANY IMMUNOSUPPRESSIVE MEDICATIONS? :NO ANY HISTORY OF SEIZURES? :NO ANY HISTORY OF CARDIAC ISSUES OR EVENTS? :NO DO YOU HAVE ANY KIDNEY OR LIVER DISEASE? :YES KIDNEY STONES DO YOU HAVE SLEEP APNEA? :NO ANY RECENT HEAD INJURY? :NO DO YOU HAVE ANY NEW INFECTIONS? :NO IS THERE A CHANCE YOU COULD BE ? :NO ARE YOU BREAST FEEDING? :NO WHEN DID YOU LAST EAT? : 03/13/2021 2100 WHEN DID YOU LAST DRINK? : 03/14/2021 1100 WHAT DID YOU LAST DRINK? : WATER NAME OF PERSON DRIVING YOU HOME? : DO YOU HAVE ANY OTHER QUESTIONS OR CONCERNS? : NO CURRENT MEDICATIONS TAKING ATORVASTATIN CALCIUM 80 MG TABLET 1 TABLET ORALLY ONCE A DAY TAKING SUMATRIPTAN SUCCINATE 100 MG TABLET 1 TABLET AT LEAST 2 HOURS BETWEEN DOSES NEEDED ORALLY ONE TABLET DIRECTED FOR MIGRAINES AND REPEAT IN 2 HOURS MDD 2 TAKING VITAMIN D3 25 MCG (1000 UT) CAPSULE 1 CAPSULE ORALLY 2000 UNITS BY MOUTH DAILY TAKING CLONAZEPAM 0.5 MG TABLET TAKE UP TO 3 TABS BEFORE BEDTIME ORALLY ONCE A DAY TAKING GEMFIBROZIL 600 MG TABLET 1 TABLET 30 MINUTES BEFORE MORNING MEAL ORALLY DAILY, NOTES: 03/14/2021599 TAKING HYDROXYZINE HCL 50 MG TABLET DIRECTED ORALLY THREE TIMES DAILY NEEDED HOLD IF DROWSY TAKING OXCARBAZEPINE 600 MG TABLET 1 TABLET ORALLY TWICE A DAY, NOTES: 03/14/2021599 TAKING HYDROCODONE-ACETAMINOPHEN 7.5-325 MG TABLET 1 TABLET NEEDED ORALLY BID AND AT HS NEEDED MDD3, NOTES: 03/14/2021599 TAKING ADDERALL XR 20 MG CAPSULE EXTENDED RELEASE 24 HOUR 1 CAPSULE IN THE MORNING ORALLY ONCE A DAY, NOTES: 03/14/2021599 TAKING LURASIDONE HCL 80 MG TABLET 1 TABLET ORALLY ONCE A DAY TAKING GABAPENTIN 300 MG TABLET 4 CAPSULE ORALLY BEFORE BEDTIME TAKING TIZANIDINE HCL 4 MG TABLET 1 TABLET NEEDED ORALLY THREE TIMES A DAY, NOTES: 03/14/2021599 TAKING PRILOSEC OTC 20 MG TABLET DELAYED RELEASE 2 TABLET 30 MINUTES BEFORE MORNING MEAL ORALLY ONCE A DAY TAKING ZOFRAN 8 MG TABLET 1 TABLET NEEDED ORALLY ONCE A DAY TAKING BUPROPION HCL 100 MG TABLET 1 TABLET ORALLY TWICE A DAY, NOTES: 03/14/2021 1100 NOT-TAKING WELLBUTRIN XL 150 MG TABLET EXTENDED RELEASE 24 HOUR 1 TABLET ORALLY BID NOT-TAKING CARISOPRODOL 350 MG TABLET 1 TABLET NEEDED ORALLY FOR SPASMS AND PAIN EVERY 12 HOURS NEEDED MDD2 NOT-TAKING NICOTINE STEP 1 21 MG/24HR PATCH 24 HOUR 1 PATCH TO SKIN TRANSDERMAL ONCE A DAY MEDICATION LIST REVIEWED AND RECONCILED WITH THE PATIENT PAST MEDICAL HISTORY ADHD BIPOLAR PTSD SEVERE CHRONIC LOWER BACK PAIN 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 SEVERE ANXIETY MIGRAINES DYSLIPIDEMIA ARTHRITIS 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 PLEURISY IN RIGHT LUNG ENLARGED LYMPH NODE IN RIGHT UPPER QUADRANT ALLERGIES NIACIN: SEVERE RASH AND DYSPNEA - ALLERGY SURGICAL HISTORY TUBAL LIGATION APPENDECTOMY RIGHT ANKLE SURGERY RIGHT HIP LABIAL TEAR REPAIR STENT FOR KIDNEY STONES SOCIAL HISTORY GENERAL: TOBACCO USE ARE YOU A:FORMER SMOKER HOW LONG HAS IT BEEN SINCE YOU LAST SMOKED?1-3 MONTHS 2 WEEKS SINCE A CIGARETTE, USING PATCH VAPORNO E-CIGARETTENO LATEX QUESTIONNAIRE LATEX ALLERGY : HAVE YOU EVER DEVELOPED ANY TYPE OF REACTION AFTER HANDLING LATEX PRODUCTS SUCH RUBBER GLOVES, CONDOMS, DIAPHRAGMS, BALLOONS, SOCKS, OR UNDERWEAR?NO LATEX ALLERGY : HAVE YOU EVER DEVELOPED ANY TYPE OF REACTION DURING OR AFTER DENTAL APPOINTMENT, VAGINAL/RECTAL EXAMINATION, SURGICAL PROCEDURE, OR ANY OTHER EXPOSURE?NO LATEX RISK : HAVE YOU EVER HAD ANY DIFFICULTY BREATHING OR HIVES AFTER EATING OR HANDLING ANY FRUITS, OR VEGETABLES; SUCH KIWI, BANANAS, STONE FRUITS, OR CHESTNUTSNO LATEX RISK : DO YOU HAVE A PREVIOUS PERSONAL HISTORY OF MORE THAN NINE SURGERIES, SPINA BIFIDA, OR REPEATED CATHERIZATIONS? NO LATEX RISK : ARE YOU FREQUENTLY EXPOSED TO LATEX PRODUCTS IN YOUR OCCUPATION?NO DATE ASKED : 02/10/2021 ALCOHOL USE: NO. ALCOHOL SCREENING INTERPRETATIONNEGATIVE POINTS1 HOW OFTEN DID YOU HAVE A DRINK CONTAINING ALCOHOL IN THE PAST YEAR?MONTHLY OR LESS (1 POINT) HOW MANY DRINKS DID YOU HAVE ON A TYPICAL DAY WHEN YOU WERE DRINKING IN THE PAST YEAR?1 OR 2 (0 POINTS) HOW OFTEN DID YOU HAVE SIX OR MORE DRINKS ON ONE OCCASION IN THE PAST YEAR?NEVER (0 POINTS) DID YOU HAVE A DRINK CONTAINING ALCOHOL IN THE PAST YEAR?YES RECREATIONAL DRUG USE DRUG USE?NO PATIENT DENIES ABUSE OR MISSUSED OF ANY MEDICATION DENIES PATIENT DENIES USE OF ANY ILLEGAL SUBSTANCE INCLUDING MARIJUANA OR COCAINE DENIES CAFFEINE HOW OFTEN AND HOW MUCH? COFFEE, 4/DAY CAFFEINE USE?YES MU-ISM MU-ISM NO WORSHIP BELIEFS THAT WOULD IMPACT HEALTH CARE. 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 EXERCISE: NO REGULAR EXERCISE. MARITAL STATUS: . OTHERS AT HOME: SPOUSE, CHILDREN. - HAS THE PATIENT BEEN EDUCATED REGARDING HIS/HER PLAN OF CARE?YES HAS THE PATIENT BEEN EDUCATED REGARDING PAIN, THE RISK FOR PAIN, THE IMPORTANCE OF EFFECTIVE PAIN MANAGEMENT, AND THE PAIN ASSESSMENT PROCESS?YES WAS THE PROVIDER NOTIFIED OF ANY PERTINENT INFO?YES PUBLIC HEALTH REFERRAL NEEDED?NO CLERGY REFERRAL NEEDED?NO PFS REFERRAL NEEDED?NO HOUSING: OWNS HOME. ADVANCE DIRECTIVE ADVANCE DIRECTIVE DISCUSSED WITH PATIENT:YES PATIENT DOES NOT HAVE ANY ADVANCED DIRECTIVES AND DECLINES INFORMATION ON HCP AT THIS TIME. HOSPITALIZATION/MAJOR DIAGNOSTIC PROCEDURE KIDNEY STONES CHILDBIRTH AFTER CHILDBIRTH FROM SEPSIS HIP SURGERY VITAL SIGNS WT 160.0 LBS, HT 62 IN, BMI 29.26 INDEX, BP 100/60 MM HG, HR 65 /MIN, RR 18 /MIN, TEMP 98.0 F, OXYGEN SAT % 97%, SAFE IN ENV? (Y/N) YES, NA INITIALS AW 1320, REVIEWED BY: Jon SWEENEY RN. EXAMINATION GENERAL: THE PATIENT IS ALERT, ORIENTED TIMES THREE AND COOPERATIVE. LUNGS ARE CLEAR TO AUSCULTATION. HEART SHOWS REGULAR RHYTHM, NO MURMURS AND NO GALLOPS. 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 PROCEDURES PAIN NURSING RECORD PROCEDURE IN ROOM 1540, PHYSICIAN IN ROOM 1555, START 1559, FINISH 1610, PHYSICIAN OUT OF ROOM 1611, OUT OF ROOM 1620, ECG OTHER SINUS NATO, PATIENT SHIELDED YES, SAFETY STRAP NO, PREP BETADINE Asya SULLIVAN RN, DRESSING TEGADERM DR. ASHLEY LOC: 1. ALERT, ORIENTED, JORDAN SULLIVAN 03/14/2021 4:02:04 PM > RESP: 1. REGULAR, NO DYSPNEA, JORDAN SULLIVAN 03/14/2021 4:02:08 PM > COLOR: 1. PINK, JORDAN SULLIVAN 03/14/2021 4:02:12 PM > SKIN: 1. WARM, DRY, JORDAN SULLIVAN 03/14/2021 4:02:16 PM > POSITION: 1. PRONE, JORDAN SULLIVAN 03/14/2021 3:51:18 PM > VITALS: 1510 P62 R18 0296% BP 108/70 AW 1520 P58 0294 R18 BP104/57 AW 109/69, 59, 16, 96%, JORDAN SULLIVAN 03/14/2021 3:50:20 PM > 112/71, 60, 16, 96%, JORDAN SULLIVAN 03/14/2021 4:02:35 PM > 116/66, 65, 16, 96%, JORDAN SULLIVAN 03/14/2021 4:26:14 PM > 115/70, 75, 16, 96%, JORDAN SULLIVAN 03/14/2021 4:35:26 PM > 131/65, 57, 16, 97% JORDAN SULLIVAN 03/14/2021 5:12:45 PM > NOTES Asya SULLIVAN RN, JORDAN SULLIVAN 03/14/2021 3:51:23 PM > POST PROCEDURE, PT C/O PAIN 06/11, DR ASHLEY @ BEDSIDE, ISTOP PRINTED, DR ASHLEY ORDERED NORCO 5/325 X 2, GIVEN TO PT. ICE PACK APPLIED TO PAINFUL AREA ON RIGHT BUTTOCK., JORDAN SULLIVAN 03/14/2021 4:56:25 PM > COMPLETION OF PROCEDURE APPOINTMENT: POST PAIN 10 DR ASHLEY IS AWARE, HE WILL SPEAK TO PT WHEN HE IS FINISHED WITH HIS PROCEDURE., DRESSING SITE DRY AND INTACT, IV N/A, GAIT WHEELCHAIR, TEACHING COMPLETED, PATIENT ACKNOWLEDGES UNDERSTANDING YES, PROCEDURE APPOINTMENT COMPLETED AT 1720 PN LUMBAR TRANSFORAMINAL BLOCKS PRE PROCEDURE DIAGNOSIS LUMBAR SPINAL STENOSIS WITH RADICULOPATHY POST PROCEDURE DIAGNOSIS LUMBAR SPINAL STENOSIS WITH RADICULOPATHY PROCEDURE RIGHT L4-L5 AND RIGHT L5-S1 TRANSFORAMINAL EPIDURAL STEROID INJECTION UNDER FLUOROSCOPIC GUIDANCE SURGEON DR HERBER ASHLEY BOOKKEEPING TEACHER NONE ANESTHESIA LOCAL PRE PROCEDURE NOTE THE PATIENT WITH HISTORY OF CHRONIC LOW BACK PAIN. I EVALUATED THE PATIENT AND REVIEWED THE CHART. I WENT OVER THE RISKS, ALTERNATIVES, AND BENEFITS ASSOCIATED WITH THIS PROCEDURE. THE PATIENT WOULD LIKE TO PROCEED AND GIVE CONSENT TO PERFORMED THE PROCEDURE. THE PATIENT DENIES UNEXPLAINABLE WEIGHT LOSS, FEVER, CHILLS, OR CHANGES IN URINARY OR BOWEL CONTROL. THE PATIENT IS COVID-19 NEGATIVE DESCRIPTION OF PROCEDURE THE PATIENT WAS BROUGHT TO THE PROCEDURE ROOM AND PLACED IN THE PRONE POSITION. THE LUMBOSACRAL AREA WAS CLEANED WITH BETADINE SOLUTION AND DRAPED ASEPTICALLY. THE PROCEDURE WAS DONE UNDER STERILE CONDITIONS. A TIMEOUT WAS PERFORMED WHERE THE CONSENTED SITE WAS VERIFIED WITH EVERYONE IN THE ROOM. UNDER FLUOROSCOPIC GUIDANCE, THE TARGET POINT WAS SELECTED AT THE RIGHT TRANSFORAMINAL OPENING OF L4 AND RIGHT TRANSFORAMINAL OPENING OF L5. TARGET POINT WAS SELECTED AFTER LATERAL ROTATION AND TILT OF THE MAGNIFIER OF THE C-ARM. I CONFIRMED AGAIN THE SITE OF TARGET. LIDOCAINE 0.5% WAS USED TO NUMB THE SKIN AND THE SUBCUTANEOUS TISSUE BELOW IT. AN EPIMED INTRODUCER, 18-GAUGE, WAS ADVANCED UNTIL I WENT CLOSE TO THE SELECTED TRANSFORAMINAL OPENINGS. AFTER PROPER POSITION OF THE NEEDLES WAS ACHIEVED, A 22-GAUGE, EPIMED NEEDLE, WAS PLACED INSIDE OF THE INTRODUCER AND ADVANCED TO THE TRANSFORAMINAL OPENING OF THE SELECTED SITES. WHEN PROPER POSITION OF THE NEEDLE WAS ACHIEVED, ISOVUE-M DYE 30%, 0.25 ML, WAS INJECTED SHOWING ADEQUATE SPREAD OF THE DYE. THIS WAS DONE UNDER DIGITAL SUBTRACTION AND ANGIOGRAPHY. THERE WAS NO VASCULAR UPDATE. THEN, A SOLUTION OF 2 ML OF BUPIVACAINE 0.25% AND DEXAMETHASONE 5 MG WAS INJECTED AT EACH SITE. THE MEDICATION WAS VERIFIED WITH THE NURSE. THERE WAS NO EVIDENCE OF BLOOD, PARESTHESIA OR CEREBROSPINAL FLUID DURING THE PROCEDURE. THE PATIENT WAS SENT TO THE RECOVERY ROOM. THE PATIENT WAS MOVING THE EXTREMITIES AND DOING WELL. THERE WAS NO COMPLICATION DURING THE PROCEDURE. ESTIMATED BLOOD LOSS WAS LESS THAN 5 ML. FLUOROSCOPY TIME WAS 59 SECONDS POST PROCEDURE NOTE THE PATIENT IS HAVING MORE PAIN IN THE RECOVERY ROOM. I AM GOING TO GIVE HER HYDROCODONE. I FEEL THAT THE PATIENT HAS SEVERE STENOSIS AND THAT SHE WILL FEEL BETTER. SHE MAY BE A CANDIDATE FOR THE MILD PROCEDURE. THE PROCEDURE DONE WAS DISCUSSED WITH THE PATIENT. THE PATIENT WILL BE SEEN IN A FOLLOW UP IN THE NEXT FEW WEEKS. I AM LOOKING FOR LONG LASTING PAIN RELIEF FOR THE PATIENT WITH THIS INTERVENTION. INSTRUCTIONS WERE GIVEN, QUESTIONS WERE ANSWERED, AND THE PATIENT EXPRESSED UNDERSTANDING AND AGREES WITH THE PLAN. I, KATHYA DAVIS, DOCUMENTED THE ABOVE INFORMATION ACTING A SCRIBE FOR DR. ASHLEY. I HAVE REVIEWED THE ABOVE DOCUMENT, WRITTEN BY KATHYA DAVIS, TIME BUYER, AND I VERIFY THAT IT IS ACCURATE DIAGNOSTIC IMAGING [facility] FLUORO GUIDE SPINE INJECTION (PAIN)[id number] PROCEDURE CODES 26014 INJ FORAMEN EPIDURAL L/S, MODIFIERS: [place] [address] INJ FORAMEN EPIDURAL ADD-ON, MODIFIERS: RT DISPOSITION & COMMUNICATION FOLLOW UP FOLLOW UP WITH BALANCE WHEEL MOTION INSPECTOR (REASON: POST RIGHT TRANSFORAMINAL EPIDURAL STEROID INJECTION L4-L5, L5-S1) ELECTRONICALLY SIGNED BY HERBER ASHLEY MD, MD ON 04/04/2021 AT 12:10 PM EDT DISCLAIMER : THIS IS A VISIT SUMMARY EXTRACTED FROM THE [employer] CHART. IT IS NOT A COPY OF THE [employer] PROGRESS NOTE. CARL
== END ==
LOC: M PAIN 13:20
PROVIDERS: ATTEND Anesthesiology
DX: M48.061 Spinal stenosis, lumbar region without neurogenic claudication (principal); G43.909 Migraine, unspecified, not intractable, without status migrainosus; Z86.59 Personal history of other mental and behavioral disorders; Z87.891 Personal history of nicotine dependence; Z88.8 Allergy status to other drugs, medicaments and biological substances; Z79.899 Other long term (current) drug therapy
CPT/HCPCS: 64483; 64484; J1100; Q0162; Q9967

== ENCOUNTER → 2021-03-31 | Outpatient (CLI) | payer OTHER ==
[~2021-03-31] MED LIST changes: -BUPIVACAINE HCL 0.25% 30ML VIAL As Ordered ONE; -ISOVUE-M 300 61% 15ML VIAL As Ordered ONE; -LIDOCAINE 1% SDV 30ML VIAL As Ordered ONE; -NORCO, ANEXSIA 5/325MG TABLET (HYDROcodone/ACETAMINOPHEN) As Ordered ONE; -ONDANSETRON 4 MG ORAL DISINTEGRATING TAB As Ordered ONE; -dexameTHASONE 10MG/1ML VIAL PRES.FREE (J1100 PER 1MG) As Ordered ONE; -diazePAM 5MG TABLET As Ordered ONE; -oxyCODONE 5MG TAB As Ordered ONE
--- NOTE | 2021-04-03 23:54 | ECWPNPC ---
PATIENT NAME: JIMENEZ MARIO : 1980 GENDER: FEMALE VISIT DATE: 03/31/2021 DISCHARGE DATE: 03/31/21 1134 VISIT LOCKED DATE TIME: PHYSICIAN: CAROLINE HICKMAN RESOURCE: CAROLINE HICKMAN REASON FOR APPOINTMENT 1. POST RIGHT TRANSFORAMINAL EPIDURAL STEROID INJECTION L4-L5, L5-S1 HISTORY OF PRESENT ILLNESS GENERAL: HERE FOR POST PROCEDURE FOLLOW-UP. HAD RIGHT TRANSFORAMINAL EPIDURAL STEROID INJECTION L4-5, L5-S1 ON MARCH 14, 2021. PATIENT IS A VAGUE HISTORIAN. ALL IN ALL HER SYMPTOMS HAVE IMPROVED. CONTINUES TO COMPLAIN OF SEVERE ACHING IN THE RIGHT BUTTOCK AND LATERAL THIGH. STATES THIS AWAKENS HER AT NIGHT. SHE IS VERY CONCERNED THE PAIN" HAS CHANGED". NO RECENT FEVER OR ILLNESS. REVIEWED MRI OF THE LS SPINE. DR. ASHLEY HAD MENTIONED IN HIS TREATMENT PLAN TO CONSIDER MILD PROCEDURE. -. FALL RISK SCREENING: SCREENING : NO FALLS REPORTED IN THE LAST YEAR. PAIN SCREENING: PATIENT HAS A COMPLAINT OF ACUTE OR CHRONIC PAIN :YES LOCATION OF PAIN:LOW BACK RIGHT , LOW BACK INTENSITY OF PAIN (SCALE OF 1 TO 10):5 WHAT DOES YOUR PAIN FEEL LIKE:ACHING, CONTINOUS, TENDER, SHOOTING DEEP DURATION:CONTINOUS, CONSTANT, ALL DAY, AWAKENS FROM SLEEP PAIN IS INCREASED BY:ACTIVITIES PAIN IS DECREASED BY:USE OF PAIN MEDICATIONS NURSING NOTE: -. PAIN CENTER INTAKE QUESTIONS: DO YOU HAVE A HISTORY OF MRSA? :NO DO YOU TAKE A BLOOD THINNERS? :NO DO YOU HAVE ANY BLEEDING DISORDERS? :NO ANY NEW NUMBNESS OR WEAKNESS IN YOUR LEGS OR ARMS? :YES NUMBNESS AND TINGLING TO RIGHT LEG ANY PACEMAKER,DEFIBRILLATOR, OR DORSAL COLUMN STIMULATOR? :NO DO YOU HAVE ANY RASHES OR OPEN SORES? :NO ARE YOU ALLERGIC TO IV DYE? :NO ARE YOU DIABETIC? :NO ANY NEW PROBLEMS WITH YOUR MEDICATIONS? :NO HAVE YOU RECEIVED A VACCINE IN THE PAST 30 DAYS? :NO DO YOU PLAN TO RECEIVE A VACCINE IN THE NEXT 21 DAYS? :NO DO YOU NEED ANY PRESCRIPTION? :NO DO YOU TAKE ANY IMMUNOSUPPRESSIVE MEDICATIONS? :NO DO YOU HAVE ANY KIDNEY OR LIVER DISEASE? :NO IS THERE A CHANCE YOU COULD BE ? :NO ARE YOU BREAST FEEDING? :NO CURRENT MEDICATIONS TAKING ATORVASTATIN CALCIUM 80 MG TABLET 1 TABLET ORALLY ONCE A DAY TAKING SUMATRIPTAN SUCCINATE 100 MG TABLET 1 TABLET AT LEAST 2 HOURS BETWEEN DOSES NEEDED ORALLY ONE TABLET DIRECTED FOR MIGRAINES AND REPEAT IN 2 HOURS MDD 2 TAKING VITAMIN D3 25 MCG (1000 UT) CAPSULE 1 CAPSULE ORALLY 2000 UNITS BY MOUTH DAILY TAKING CLONAZEPAM 0.5 MG TABLET TAKE UP TO 3 TABS BEFORE BEDTIME ORALLY ONCE A DAY TAKING GEMFIBROZIL 600 MG TABLET 1 TABLET 30 MINUTES BEFORE MORNING MEAL ORALLY DAILY TAKING HYDROXYZINE HCL 50 MG TABLET DIRECTED ORALLY THREE TIMES DAILY NEEDED HOLD IF DROWSY TAKING OXCARBAZEPINE 600 MG TABLET 1 TABLET ORALLY TWICE A DAY TAKING HYDROCODONE-ACETAMINOPHEN 7.5-325 MG TABLET 1 TABLET NEEDED ORALLY BID AND AT HS NEEDED MDD3 TAKING ADDERALL XR 20 MG CAPSULE EXTENDED RELEASE 24 HOUR 1 CAPSULE IN THE MORNING ORALLY ONCE A DAY TAKING LURASIDONE HCL 80 MG TABLET 1 TABLET ORALLY ONCE A DAY TAKING GABAPENTIN 300 MG TABLET 4 CAPSULE ORALLY BEFORE BEDTIME TAKING TIZANIDINE HCL 4 MG TABLET 1 TABLET NEEDED ORALLY THREE TIMES A DAY TAKING PRILOSEC OTC 20 MG TABLET DELAYED RELEASE 2 TABLET 30 MINUTES BEFORE MORNING MEAL ORALLY ONCE A DAY TAKING ZOFRAN 8 MG TABLET 1 TABLET NEEDED ORALLY ONCE A DAY TAKING BUPROPION HCL 100 MG TABLET 1 TABLET ORALLY TWICE A DAY, NOTES: 03/14/2021 1100 TAKING WELLBUTRIN SR 150 MG TABLET EXTENDED RELEASE 12 HOUR 1 TABLET IN THE MORNING ORALLY TWICE A DAY TAKING NICOTINE 21 MG/24HR PATCH 24 HOUR 1 PATCH TO SKIN TRANSDERMAL ONCE A DAY NOT-TAKING WELLBUTRIN XL 150 MG TABLET EXTENDED RELEASE 24 HOUR 1 TABLET ORALLY BID NOT-TAKING CARISOPRODOL 350 MG TABLET 1 TABLET NEEDED ORALLY FOR SPASMS AND PAIN EVERY 12 HOURS NEEDED MDD2 NOT-TAKING NICOTINE STEP 1 21 MG/24HR PATCH 24 HOUR 1 PATCH TO SKIN TRANSDERMAL ONCE A DAY MEDICATION LIST REVIEWED AND RECONCILED WITH THE PATIENT PAST MEDICAL HISTORY ADHD BIPOLAR PTSD SEVERE CHRONIC LOWER BACK PAIN 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 SEVERE ANXIETY MIGRAINES DYSLIPIDEMIA ARTHRITIS 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 PLEURISY IN RIGHT LUNG ENLARGED LYMPH NODE IN RIGHT UPPER QUADRANT 11/23/20 2ND COVID 12/24/2020 ALLERGIES NIACIN: SEVERE RASH AND DYSPNEA - ALLERGY SOCIAL HISTORY GENERAL: TOBACCO USE ARE YOU A:FORMER SMOKER HOW LONG HAS IT BEEN SINCE YOU LAST SMOKED?1-3 MONTHS 2 WEEKS SINCE A CIGARETTE, USING PATCH VAPORNO E-CIGARETTENO LATEX QUESTIONNAIRE LATEX ALLERGY : HAVE YOU EVER DEVELOPED ANY TYPE OF REACTION AFTER HANDLING LATEX PRODUCTS SUCH RUBBER GLOVES, CONDOMS, DIAPHRAGMS, BALLOONS, SOCKS, OR UNDERWEAR?NO LATEX ALLERGY : HAVE YOU EVER DEVELOPED ANY TYPE OF REACTION DURING OR AFTER DENTAL APPOINTMENT, VAGINAL/RECTAL EXAMINATION, SURGICAL PROCEDURE, OR ANY OTHER EXPOSURE?NO LATEX RISK : HAVE YOU EVER HAD ANY DIFFICULTY BREATHING OR HIVES AFTER EATING OR HANDLING ANY FRUITS, OR VEGETABLES; SUCH KIWI, BANANAS, STONE FRUITS, OR CHESTNUTSNO LATEX RISK : DO YOU HAVE A PREVIOUS PERSONAL HISTORY OF MORE THAN NINE SURGERIES, SPINA BIFIDA, OR REPEATED CATHERIZATIONS? NO LATEX RISK : ARE YOU FREQUENTLY EXPOSED TO LATEX PRODUCTS IN YOUR OCCUPATION?NO DATE ASKED : 03/31/2021 ALCOHOL USE: NO. ALCOHOL SCREENING DID YOU HAVE A DRINK CONTAINING ALCOHOL IN THE PAST YEAR?YES HOW OFTEN DID YOU HAVE SIX OR MORE DRINKS ON ONE OCCASION IN THE PAST YEAR?NEVER (0 POINTS) HOW MANY DRINKS DID YOU HAVE ON A TYPICAL DAY WHEN YOU WERE DRINKING IN THE PAST YEAR?1 OR 2 (0 POINTS) HOW OFTEN DID YOU HAVE A DRINK CONTAINING ALCOHOL IN THE PAST YEAR?MONTHLY OR LESS (1 POINT) POINTS1 INTERPRETATIONNEGATIVE RECREATIONAL DRUG USE DRUG USE?NO PATIENT DENIES ABUSE OR MISSUSED OF ANY MEDICATION DENIES PATIENT DENIES USE OF ANY ILLEGAL SUBSTANCE INCLUDING MARIJUANA OR COCAINE DENIES CAFFEINE CAFFEINE USE?YES HOW OFTEN AND HOW MUCH? COFFEE, 4/DAY SABIANISM SABIANISM NO HINDU BELIEFS THAT WOULD IMPACT HEALTH CARE. 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 EXERCISE: NO REGULAR EXERCISE. MARITAL STATUS: . OTHERS AT HOME: SPOUSE, CHILDREN. - PFS REFERRAL NEEDED?NO CLERGY REFERRAL NEEDED?NO PUBLIC HEALTH REFERRAL NEEDED?NO WAS THE PROVIDER NOTIFIED OF ANY PERTINENT INFO?YES HAS THE PATIENT BEEN EDUCATED REGARDING HIS/HER PLAN OF CARE?YES HAS THE PATIENT BEEN EDUCATED REGARDING PAIN, THE RISK FOR PAIN, THE IMPORTANCE OF EFFECTIVE PAIN MANAGEMENT, AND THE PAIN ASSESSMENT PROCESS?YES HOUSING: OWNS HOME. ADVANCE DIRECTIVE ADVANCE DIRECTIVE DISCUSSED WITH PATIENT:YES PATIENT DOES NOT HAVE ANY ADVANCED DIRECTIVES AND DECLINES INFORMATION ON HCP AT THIS TIME. REVIEW OF SYSTEMS CONSTITUTIONAL: ANY RECENT FEVER NO . CHILLS NO . WEIGHT CHANGE OF UNKNOWN REASONS NO . GASTROENTEROLOGY: NEW UNEXPLAINABLE CHANGES IN BOWEL CONTROL NO . CONSTIPATION NO . GENITOURINARY: ANY NEW CHANGE IN BLADDER CONTROL? NO . NEUROLOGY: NEW ONSET DIZZINESS OR NEUROLOGICAL CHANGES NOT MENTIONED NO . NEW NUMBNESS OR PAIN PATTERNS NOT MENTIONED AND PERTINENT TO TODAY'S VISIT NO . CARDIOLOGY: NEW CHEST PRESSURE NO . PATIENT DENIES NO . RESPIRATORY: UNEXPLAINABLE COUGH NO . NEW SHORTNESS OF BREATH NO . VITAL SIGNS WT 160 LBS, HT 62 IN, BMI 29.26 INDEX, BP 124/81 MM HG, HR 71 /MIN, RR 18 /MIN, TEMP 98.4 F, OXYGEN SAT % 97%, SAFE IN ENV? (Y/N) YEST.KRISTY ROB. EXAMINATION GENERAL EXAMINATION: GENERALAPPEARS UNCOMFORTABLE.. PSYCHCONSTRICTED AFFECT. NECK:NO LYMPHADENOPATHY, SUPPLE. LUNGS:CLEAR TO AUSCULTATION BILATERALLY, NO WHEEZES, RHONCHI, RALES. HEART:NO MURMURS, REGULAR RATE AND RHYTHM. MUSCULOSKELETAL:WEAKNESS NOTED OVER RIGHT LEG COMPARED TO LEFT. COMPLAINING OF PARESTHESIAS TO LIGHT TOUCH OVER RIGHT LEG.. LUMBAR:SPECIFIC POINT TENDERNESS NOTED OVER RIGHT PIRIFORMIS MUSCLE. MARKED TENDERNESS NOTED OVER LS SPINE AND LUMBAR PARASPINALS RIGHT GREATER THAN LEFT. DIAGNOSTIC TESTS REVIEWED MRI L/S [id number]. 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 Cuadra DISCUSS INTERVENTIONAL OPTIONS (REASON: LBP/RIGHT LEG PAIN) ELECTRONICALLY SIGNED BY ANAYELI MORAN ON 04/03/2021 AT 08:37 AM EDT DISCLAIMER : THIS IS A VISIT SUMMARY EXTRACTED FROM THE [employer] CHART. IT IS NOT A COPY OF THE [employer] PROGRESS NOTE. CARL
== END ==
LOC: M PAIN 10:45
PROVIDERS: ATTEND Nurse Practitioner Family
DX: G89.29 Other chronic pain (principal); M48.061 Spinal stenosis, lumbar region without neurogenic claudication; F31.9 Bipolar disorder, unspecified; F43.10 Post-traumatic stress disorder, unspecified; F41.9 Anxiety disorder, unspecified; G43.909 Migraine, unspecified, not intractable, without status migrainosus; E78.5 Hyperlipidemia, unspecified; Z87.891 Personal history of nicotine dependence; Z79.891 Long term (current) use of opiate analgesic; Z79.899 Other long term (current) drug therapy; Z88.8 Allergy status to other drugs, medicaments and biological substances

== ENCOUNTER → 2021-07-12 | Outpatient (CLI) | payer OTHER | LOC: M PAIN 10:45 | PROVIDERS: ATTEND Anesthesiology | DX: M48.061 Spinal stenosis, lumbar region without neurogenic claudication (principal); E88.2 Lipomatosis, not elsewhere classified; F31.9 Bipolar disorder, unspecified; F43.10 Post-traumatic stress disorder, unspecified; F90.9 Attention-deficit hyperactivity disorder, unspecified type; G43.909 Migraine, unspecified, not intractable, without status migrainosus; E78.5 Hyperlipidemia, unspecified; Z87.891 Personal history of nicotine dependence; Z79.891 Long term (current) use of opiate analgesic; Z79.899 Other long term (current) drug therapy; Z88.8 Allergy status to other drugs, medicaments and biological substances ==

== ENCOUNTER → 2021-12-20 | Outpatient (CLI) | payer OTHER | LOC: M PAIN 14:45 | PROVIDERS: ATTEND Anesthesiology | DX: M48.061 Spinal stenosis, lumbar region without neurogenic claudication (principal); G89.29 Other chronic pain; E88.2 Lipomatosis, not elsewhere classified; G43.909 Migraine, unspecified, not intractable, without status migrainosus; Z86.59 Personal history of other mental and behavioral disorders; Z87.891 Personal history of nicotine dependence; Z88.8 Allergy status to other drugs, medicaments and biological substances; Z79.899 Other long term (current) drug therapy ==

== ENCOUNTER → 2022-02-05 | Outpatient (CLI) | payer OTHER | LOC: M PAIN 10:15 | PROVIDERS: ATTEND Nurse Practitioner Family | DX: M48.061 Spinal stenosis, lumbar region without neurogenic claudication (principal); G89.29 Other chronic pain; E88.2 Lipomatosis, not elsewhere classified; G43.909 Migraine, unspecified, not intractable, without status migrainosus; M19.90 Unspecified osteoarthritis, unspecified site; Z86.59 Personal history of other mental and behavioral disorders; Z87.891 Personal history of nicotine dependence; Z88.8 Allergy status to other drugs, medicaments and biological substances; Z79.899 Other long term (current) drug therapy ==

== ENCOUNTER → 2022-05-29 | Outpatient (CLI) | payer OTHER | LOC: M PAIN 09:30 | PROVIDERS: ATTEND Nurse Practitioner Family | DX: M48.061 Spinal stenosis, lumbar region without neurogenic claudication (principal); G89.29 Other chronic pain; G43.909 Migraine, unspecified, not intractable, without status migrainosus; Z86.59 Personal history of other mental and behavioral disorders; Z87.891 Personal history of nicotine dependence; Z88.8 Allergy status to other drugs, medicaments and biological substances; Z79.899 Other long term (current) drug therapy ==

== ENCOUNTER → 2022-07-29 | Outpatient (CLI) | payer OTHER | LOC: M LABSMTC 10:31 | PROVIDERS: ATTEND Anesthesiology | DX: Z01.812 Encounter for preprocedural laboratory examination (principal); Z11.52 Encounter for screening for COVID-19 ==

== ENCOUNTER → 2022-08-02 | Outpatient (CLI) | payer OTHER ==
[~2022-08-02] MED LIST changes: +BUPIVACAINE HCL 0.25% 30ML VIAL As Ordered ONE; +ISOVUE-M 300 61% 15ML VIAL As Ordered ONE; +LIDOCAINE 1% SDV 30ML VIAL As Ordered ONE; +ONDANSETRON 4MG ORAL DISINTEGRATING TAB As Ordered ONE; +diazePAM 5MG TABLET As Ordered ONE; +oxyCODONE 5MG TAB As Ordered ONE
== END ==
LOC: M PAIN 12:30
PROVIDERS: ATTEND Anesthesiology
DX: M51.16 Intervertebral disc disorders with radiculopathy, lumbar region (principal); F90.9 Attention-deficit hyperactivity disorder, unspecified type; F31.9 Bipolar disorder, unspecified; F43.10 Post-traumatic stress disorder, unspecified; E78.1 Pure hyperglyceridemia; F41.9 Anxiety disorder, unspecified; G43.909 Migraine, unspecified, not intractable, without status migrainosus; E78.5 Hyperlipidemia, unspecified; Z87.891 Personal history of nicotine dependence; Z79.1 Long term (current) use of non-steroidal anti-inflammatories (NSAID); Z79.84 Long term (current) use of oral hypoglycemic drugs; Z79.891 Long term (current) use of opiate analgesic; Z79.899 Other long term (current) drug therapy; Z88.8 Allergy status to other drugs, medicaments and biological substances; M54.50 Low back pain, unspecified
CPT/HCPCS: 64483; Q9967

== ENCOUNTER → 2022-09-07 | Outpatient (CLI) | payer OTHER ==
[~2022-09-07] MED LIST changes: -BUPIVACAINE HCL 0.25% 30ML VIAL As Ordered ONE; -ISOVUE-M 300 61% 15ML VIAL As Ordered ONE; -LIDOCAINE 1% SDV 30ML VIAL As Ordered ONE; -ONDANSETRON 4MG ORAL DISINTEGRATING TAB As Ordered ONE; -diazePAM 5MG TABLET As Ordered ONE; -oxyCODONE 5MG TAB As Ordered ONE
== END ==
LOC: M PAIN 10:30
PROVIDERS: ATTEND Nurse Practitioner Family
DX: M51.27 Other intervertebral disc displacement, lumbosacral region (principal); M48.061 Spinal stenosis, lumbar region without neurogenic claudication; F90.9 Attention-deficit hyperactivity disorder, unspecified type; F31.9 Bipolar disorder, unspecified; F43.10 Post-traumatic stress disorder, unspecified; R73.03 Prediabetes; E78.1 Pure hyperglyceridemia; F41.9 Anxiety disorder, unspecified; G43.909 Migraine, unspecified, not intractable, without status migrainosus; E78.5 Hyperlipidemia, unspecified; M19.90 Unspecified osteoarthritis, unspecified site; Z87.891 Personal history of nicotine dependence; Z79.1 Long term (current) use of non-steroidal anti-inflammatories (NSAID); Z79.84 Long term (current) use of oral hypoglycemic drugs; Z79.891 Long term (current) use of opiate analgesic; Z79.899 Other long term (current) drug therapy; Z88.8 Allergy status to other drugs, medicaments and biological substances

== ENCOUNTER → 2023-02-21 | Outpatient (CLI) | payer OTHER | LOC: M PAIN 10:00 | PROVIDERS: ATTEND Nurse Practitioner Family | DX: M48.00 Spinal stenosis, site unspecified (principal); G89.29 Other chronic pain; F31.9 Bipolar disorder, unspecified; F43.10 Post-traumatic stress disorder, unspecified; M54.50 Low back pain, unspecified; E78.1 Pure hyperglyceridemia; F41.9 Anxiety disorder, unspecified; G43.909 Migraine, unspecified, not intractable, without status migrainosus; E78.5 Hyperlipidemia, unspecified; Z87.891 Personal history of nicotine dependence; Z79.84 Long term (current) use of oral hypoglycemic drugs; Z79.891 Long term (current) use of opiate analgesic; Z79.899 Other long term (current) drug therapy; Z88.8 Allergy status to other drugs, medicaments and biological substances ==

== ENCOUNTER → 2023-05-17 | Outpatient (CLI) | payer OTHER ==
[~2023-05-17] MED LIST changes: +ISOVUE-M 300 61% 15ML VIAL As Ordered ONE; +LIDOCAINE 1% SDV 30ML VIAL As Ordered ONE; +ONDANSETRON 4MG ORAL DISINTEGRATING TAB As Ordered ONE; +diazePAM 5MG TABLET As Ordered ONE; +methylPREDNISolone SUSP 40MG/ML 1ML VIAL (DEPO MEDROL) As Ordered ONE; +oxyCODONE 5MG TAB As Ordered ONE
== END ==
LOC: M PAIN 08:30
PROVIDERS: ATTEND Anesthesiology
DX: M51.16 Intervertebral disc disorders with radiculopathy, lumbar region (principal); G89.29 Other chronic pain; R73.03 Prediabetes; G47.30 Sleep apnea, unspecified; G43.909 Migraine, unspecified, not intractable, without status migrainosus; Z86.59 Personal history of other mental and behavioral disorders; Z87.891 Personal history of nicotine dependence; Z88.8 Allergy status to other drugs, medicaments and biological substances; Z79.84 Long term (current) use of oral hypoglycemic drugs; Z79.899 Other long term (current) drug therapy
CPT/HCPCS: 62323; J1030; Q9967

== ENCOUNTER → 2023-06-19 | Outpatient (CLI) | payer OTHER ==
[~2023-06-19] MED LIST changes: -ISOVUE-M 300 61% 15ML VIAL As Ordered ONE; -LIDOCAINE 1% SDV 30ML VIAL As Ordered ONE; -ONDANSETRON 4MG ORAL DISINTEGRATING TAB As Ordered ONE; -diazePAM 5MG TABLET As Ordered ONE; -methylPREDNISolone SUSP 40MG/ML 1ML VIAL (DEPO MEDROL) As Ordered ONE; -oxyCODONE 5MG TAB As Ordered ONE
== END ==
LOC: M PAIN 13:30
PROVIDERS: ATTEND Anesthesiology
DX: M51.16 Intervertebral disc disorders with radiculopathy, lumbar region (principal); F31.9 Bipolar disorder, unspecified; G89.29 Other chronic pain; F41.9 Anxiety disorder, unspecified; E78.2 Mixed hyperlipidemia; G43.909 Migraine, unspecified, not intractable, without status migrainosus; Z87.891 Personal history of nicotine dependence; Z79.1 Long term (current) use of non-steroidal anti-inflammatories (NSAID); Z79.84 Long term (current) use of oral hypoglycemic drugs; Z79.891 Long term (current) use of opiate analgesic; Z79.899 Other long term (current) drug therapy; Z88.8 Allergy status to other drugs, medicaments and biological substances

== ENCOUNTER → 2024-04-22 | Outpatient (REF) | payer OTHER ==
[2024-04-24 15:02] LABS: HPV APTIMA Not Detected (Not Detected)
== END ==
LOC: M SFHCWAGY 12:22
PROVIDERS: ATTEND Nurse Practitioner Family
DX: Z12.4 Encounter for screening for malignant neoplasm of cervix (principal)